=== PATIENT | female | born 1995 | race Caucasian/White ===

== ENCOUNTER 2019-03-28 17:47 | Emergency (ER) | payer MEDICAID, OTHER ==
[~2019-03-28] VITALS: Ht 157.5 cm; Wt 65.8 kg
[~2019-03-28 17:47] MED LIST: ANTIBIOTIC DROPS; CEPH500C PO; FAMO-119 PO; NITR-65 PO; OMEP20CA13 PO; ONDA-42 SL; ONDAN4ODT PO; POLY17PO6 PO; SUCR1ORA5 PO
[2019-03-28 19:03] LABS: BASOPHILS % (AUTO) 1 % (0-10); EOSINOPHILS # (AUTO) 0.1 10^3/uL (0.0-0.3); EOSINOPHILS % (AUTO) 1 % (0-10); HEMATOCRIT 41 % (35-52); LYMPHOCYTES # (AUTO) 2.4 X 10^3 (1.0-4.0); LYMPHOCYTES % (AUTO) 34 % (12-44); MEAN CORPUSCULAR HEMOGLOBIN 32 PG (25-34); MEAN CORPUSCULAR HGB CONC 34 G/DL (32-36); MEAN CORPUSCULAR VOLUME 94 FL (80-99); MEAN PLATELET VOLUME 11.1 FL (7.4-10.4); MONOCYTES # (AUTO) 0.7 X 10^3 (0.0-1.0); MONOCYTES % (AUTO) 10 % (0-12); NEUTROPHILS # (AUTO) 3.8 X 10^3 (1.8-7.8); NEUTROPHILS % (AUTO) 55 % (42-75); PLATELET COUNT 275 10^3/uL (130-400); RED CELL DISTRIBUTION WIDTH 12.4 % (10.0-14.5)
[2019-03-28 19:08] LABS: BILIRUBIN,URINE NEGATIVE (NEGATIVE); CLARITY,URINE CLEAR; COLOR,URINE YELLOW; GLUCOSE, URINE (UA) NEGATIVE (NEGATIVE); KETONES,URINE NEGATIVE (NEGATIVE); LEUKOCYTE ESTERASE ,URINE NEGATIVE (NEGATIVE); NITRITE,URINE NEGATIVE (NEGATIVE); PH,URINE 7.5 (5-9); PROTEIN,URINE NEGATIVE (NEGATIVE)
[2019-03-28 19:25] LABS: BACTERIA,URINE FEW /HPF
[2019-03-28 19:28] LABS: ALANINE AMINOTRANSFERASE 22 U/L (0-55); ALBUMIN 4.3 GM/DL (3.2-4.5); ALKALINE PHOSPHATASE 53 U/L (40-136); BILIRUBIN,TOTAL 0.3 MG/DL (0.1-1.0); BUN/CREATININE RATIO 14; CALCIUM 8.9 MG/DL (8.5-10.1); CARBON DIOXIDE 22 MMOL/L (21-32); CHLORIDE 109 MMOL/L (98-107); CREATININE SERUM 0.73 MG/DL (0.60-1.30); GFR ESTIMATED > 60; GLUCOSE 79 MG/DL (70-105); POTASSIUM 3.9 MMOL/L (3.6-5.0); SODIUM 142 MMOL/L (135-145)
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
[2019-03-28] MEDS ORDERED: ACETAMINOPHEN 325 MG TABLET PO STA (19:50)
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
[2019-03-28 20:05] VITALS: BP 136/72
== END 2019-03-28 20:07 | disposition home or self-care (01) ==
LOC: EDUNIT# 17:47 → ER 17:48
DX: S06.0X1A Concussion with loss of consciousness of 30 minutes or less, initial encounter (principal); S19.9XXA Unspecified injury of neck, initial encounter; S13.9XXA Sprain of joints and ligaments of unspecified parts of neck, initial encounter; Z88.8 Allergy status to other drugs, medicaments and biological substances; V48.6XXA Car passenger injured in noncollision transport accident in traffic accident, initial encounter
CPT/HCPCS: 36415; 70450; 72125; 80053; 81000; 84703; 85025

== ENCOUNTER 2019-10-06 15:48 | Observation (INO) | payer MEDICAID ==
[~2019-10-06] VITALS: Ht 157.2 cm; Wt 70.0 kg
[~2019-10-06 15:48] MED LIST changes: -OMEP20CA13 PO; +OMEP20CA18 PO
--- NOTE | 2019-10-06 15:52 | NUR ---
LAZARO MARCUS presented to unit via AMB from HOME, accompanied by MOTHER, with c/o CONTRACTIONS AT 27 WEEKS. LAZARO MARCUS weighed, gowned, voided, and to bed. EFHM and TOCO applied, VS taken. LAZARO MARCUS oriented to bed controls, call light, TV, heat, and A/C controls.
[2019-10-06 15:58] VITALS: BP 119/75
[2019-10-06] MEDS ORDERED: PREN1TAB79 PO (16:03)
[2019-10-06 16:06] VITALS: BP 119/75
[2019-10-06 16:10] VITALS: BP 119/75
[2019-10-06 16:22] VITALS: BP 119/75
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
[2019-10-06] MEDS ORDERED: LACTATED RINGERS 1,000 ML IV SCH (16:45)
[2019-10-06 16:51] LABS: BILIRUBIN,URINE NEGATIVE (NEGATIVE); CLARITY,URINE SL CLOUDY; COLOR,URINE YELLOW; GLUCOSE, URINE (UA) NEGATIVE (NEGATIVE); KETONES,URINE NEGATIVE (NEGATIVE); LEUKOCYTE ESTERASE ,URINE 1+ (NEGATIVE); NITRITE,URINE NEGATIVE (NEGATIVE); PROTEIN,URINE NEGATIVE (NEGATIVE)
--- NOTE | 2019-10-06 16:51 | NUR ---
AMNIO SWAB NEGATIVE. GENTLE SVE BY AME FERGUSON RN. HIPS ELEVATED ON UPSIDE DOWN BEDPAN. LOWER SEGMENT OF THE UTERUS VERY SOFT. CERVIX IS A DENT EXTERNALLY/ FAIRLY ANTERIOR/ UNABLE TO DETERMINE CERVICAL LENGTH OR PRESENTATION R/T QUICK IN AND OUT BECAUSE OF GESTATIONAL AGE.
[2019-10-06 17:07] LABS: BACTERIA,URINE TRACE /HPF
--- NOTE | 2019-10-06 17:42 | NUR ---
DR. HAWLEY NOTIFIED OF PT'S UA RESULTS AND VARIABLES. ORDERS TO KEEP OVERNIGHT FOR U/S IN THE A.M. ORDERS RECEIVED.
[2019-10-06] MEDS: LACTATED RINGERS 1,000 ML IV SCH (17:56)
[2019-10-06] MEDS ORDERED: ACETAMINOPHEN 500 MG TAB (TYLENOL) PO PRN (18:00)
--- NOTE | 2019-10-06 18:15 | NUR ---
LAB HERE TO DRAW BLOOD FOR CBC. EATING REGULAR DIET. MOM AT BEDSIDE.
[2019-10-06 18:27] LABS: AMPHETAMINE SCREEN, URINE NEGATIVE (NEGATIVE); BARBITURATE SCREEN URINE NEGATIVE (NEGATIVE); BENZODIAZEPINES SCREEN URINE NEGATIVE (NEGATIVE); CANNABINOID SCREEN, URINE NEGATIVE (NEGATIVE); COCAINE SCREEN URINE NEGATIVE (NEGATIVE); METHADONE STAT NEGATIVE (NEGATIVE); METHAMPHETAMINE SCREEN URINE S NEGATIVE (NEGATIVE); OPIATE SCREEN URINE NEGATIVE (NEGATIVE); OXYCODONE STAT NEGATIVE (NEGATIVE); PROPOXYPHENE STAT NEGATIVE (NEGATIVE); TRICYCLIC ANTIDEPRESSANTS SCRE NEGATIVE (NEGATIVE)
[2019-10-06 18:38] LABS: BASOPHILS % (AUTO) 0 % (0-10); EOSINOPHILS # (AUTO) 0.1 10^3/uL (0.0-0.3); EOSINOPHILS % (AUTO) 1 % (0-10); HEMATOCRIT 33 % (35-52); HEMOGLOBIN 11.6 G/DL (11.5-16.0); LYMPHOCYTES # (AUTO) 1.7 X 10^3 (1.0-4.0); LYMPHOCYTES % (AUTO) 19 % (12-44); MEAN CORPUSCULAR HEMOGLOBIN 33 PG (25-34); MEAN CORPUSCULAR HGB CONC 35 G/DL (32-36); MEAN CORPUSCULAR VOLUME 94 FL (80-99); MEAN PLATELET VOLUME 10.8 FL (7.4-10.4); MONOCYTES % (AUTO) 11 % (0-12); NEUTROPHILS # (AUTO) 6.3 X 10^3 (1.8-7.8); NEUTROPHILS % (AUTO) 70 % (42-75); PLATELET COUNT 238 10^3/uL (130-400); RED CELL DISTRIBUTION WIDTH 12.7 % (10.0-14.5)
[2019-10-06 18:44] VITALS: BP 123/72
--- OUTSIDE RECORDS SUMMARY | 2019-10-06 18:54 | XMS REPORT ---
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 Operator Name Role Phone KEYSHAWN CARRION Unavailable Unavailable BRITT CARTER Unavailable Unavailable RIVER KINCAIDA Unavailable Unavailable [facility] Unavailable JUARESREANNA Contreras Unavailable KEYSHAWN CARRION Unavailable Leigh AnnCK Unavailable DANIEL NARANJO Unavailable RIVER KINCAIDA K Unavailable NARANJOKORIN RODRIGUEZBIE JO Unavailable MARCELLA CHIQUI Unavailable MICA AGUILAR Unavailable TIFFANIE MOTT Unavailable MIAH, AME Unavailable AGUEDA BUENROSTRO Unavailable MIAH, AME Unavailable YOGESH MAHAJAN Unavailable YOGESH MAHAJAN Unavailable RIANA RUIZ MD Unavailable Unavailable BRIONNA KINCAID DO Unavailable Unavailable CASA HAGEN Unavailable Unavailable AGUEDA BUENROSTRO Unavailable DANIEL NARANJO Unavailable AGUEDA BUENROSTRO Unavailable Migration, Doctor Unavailable Unavailable Migration, Doctor Unavailable Unavailable Migration, Doctor Unavailable Unavailable Migration, Doctor Unavailable Unavailable RAZ COUGHLIN Unavailable Migration, Doctor Unavailable Unavailable CASA HAGEN Unavailable Unavailable RIANA RUIZ MD Unavailable Unavailable ANTOINE EID, RAINER Davidson Unavailable Unavailable TIFFANIE PAYTON Unavailable Unavailable AGUEDA BUENROSTRO Unavailable Unavailable BRIONNA KINCAID DO Unavailable Unavailable RianaLIBBYOMKAR JAMES Unavailable Unavailable Unavailable RAZ COUGHLIN Unavailable AGUEDA BUENROSTRO Unavailable RAZ COUGHLIN Unavailable Unavailable Unavailable Unavailable Unavailable Unavailable Unavailable Allergies Normalized Allergy Reported Date of Reaction(s) Care Provider Facility Allergy Type classification allergen Allergy Onset DA (17 Unclassified No Known Drug 11-06-2009 - no information CASA Not Available sources.) Allergies AYAAN GARCIA ([id number]) Medications Current Medications Medication Ingredient Drug Dose Dates Status Sig Sig Care Class(es) (Normalized) (Original) Provid er amoxicillin Amoxicillin Penicillin- 02-27-20 Active take 1 Augme ntin no 875 mg / / class 12 tablet by 875-125 mg 1 name clavulanate Clavulanate Antibacteri mouth twice tablet by 125 mg oral Translation al daily Oral route 2 tablet (1 s: [ times per source.) Augmentin day for 10 875-125 mg] day(s) Feb, Active ciprofloxac Ciprofloxac Quinolone 500 mg 07-19-19 Active take 1 Cipro 500 mg no in 500 mg in Antimicrobi 14 tablet by 1 tablet by name oral tablet Translation al mouth every Oral route (1 source.) s: [ Cipro twelve hours every 12 500 mg] hours for 10 day(s) Jul, Active Completed/Discontinued Medications Medication Ingredient Drug Dose Dates Status Sig Sig Care Class(es) (Normalized) (Original) Provid er topiramate topiramate Anti-epilep 25 mg 07-28-19 Suspende no Topiramate no 25 mg oral Translation tic Agent 18 d information 25 MG Orally name tablet (3 s: [ Once a day, sources.) Topiramate at night 1 25 MG, tablet 19 Topiramate Jul, 2017 30 25 MG] day(s) Not-Taking Problems Active Problems Problem Normalized Date Last Normalized Normalized Provider Bryce cility Classification Problem(s) Recorded Problem Problem Sta tus Duration Other nervous Other acute Episodic Active no name no inf ormation system postoperative disorders (3 pain sources.) Other upper Other seasonal Chronic Active YOGESH [facility] respiratory allergic [facility] disease (20 rhinitis of [facility] sources.) Translations: [place] ([id number]) [ - Seasonal allergic rhinitis, unspecified allergic rhinitis trigger J30.2, - Seasonal allergic rhinitis, unspecified trigger J30.2, - Seasonal allergic rhinitis, unspecified allergic rhinitis trigger J30.2, - Seasonal allergic rhinitis, unspecified trigger J30.2] Other female Other Episodic Active no name no informa tion genital specified disorders (3 noninflammator sources.) y disorders of vagina Other injuries Unspecified Episodic Active no name no in formation and conditions injury of due to right ankle, external initial causes (8 encounter sources.) Past or Other Problems Problem Normalized Date Last Normalized Normalized Provider Fa cility Classification Problem(s) Recorded Problem Problem Sta tus Duration External Other external no information no information no name no information Injury - cause status Unspecified (3 sources.) Unclassified Overexertion no information no information no name no information (8 sources.) from strenuous movement or load, initial encounter External Unspecified no information no information no name no information Injury - Fall fall (3 sources.) Nausea and Vomiting, no information no information Doctor C ommunity vomiting (6 unspecified [facility] sources.) Translations: [facility] [ - Vomiting [place] ([id number]) R11.10] Procedures Procedure Normalized Procedure Procedure Result Performer Facility Date 02-15-2018 Assay of thyroid no information no name [facility] stimulating hormone [facility] (86729) 07-27-2017 Assay of thyroid no information no name [facility] stimulating hormone [facility] (77323) 02-15-2018 Blood count complete no information no name [facility] auto&auto difrntl wbc [facility] (88108) 07-27-2017 Blood count complete no information no name [facility] auto&auto difrntl wbc [facility] (86458) 02-15-2018 C-reactive protein no information no name [facility] high sensitivity [facility] (04777) 07-27-2017 Collection venous no information no name [facility] blood venipuncture [facility] (61058) 02-15-2018 Comprehensive no information no name [facility] metabolic panel [facility] (53218) 07-27-2017 Comprehensive no information no name [facility] metabolic panel [facility] (27638) 08-17-2017 Comprehensve oral no information no name Sadau misa [facility] evaluation [facility] (69012) 08-17-2017 Dental prophylaxis no information no name Comm [facility] adult [facility] (66740) 02-15-2018 Ecg routine ecg no information no name Counts include 234 beds at the [facility] w/least 12 lds trcg [facility] w/o i&r [place] (66764) 01-17-2018 Iaadiadoo no information no name [facility] streptococcus group a [facility] (56025) 02-15-2018 Lipid panel no information no name [facility] (80776) 06-26-2014 Radex shoulder no information no name [facility] complete minimum 2 [facility] (01060) 02-15-2018 Radiologic exam chest no information no name [address] ([address]) 08-17-2017 Topical fluoride no information no name [facility] varnish [facility] (16702) 02-15-2018 Urnls dip stick/tablet no information no name [facility] rgnt auto w/o [facility] (67103) Immunizations The data below is from unstructured sourcesNo immunization records.No immunization records.No immunization records. No Known Immunizations No Known Immunizations No Known Immunizations No Known Immunizations No Known Immunizations No Known Immunizations No Known Immunizations No Known Immunizations No Known Immunizations No Known Immunizations No Known Immunizations No Known Immunizations No Known Immunizations No Known Immunizations No Known Immunizations No Known Immunizations No Known Immunizations No Known Immunizations No Known Immunizations No Known Immunizations No Known Immunizations No Known Immunizations No Known Immunizations No Known Immunizations No Known Immunizations No Known Immunizations No Known Immunizations No Known Immunizations No Known Immunizations No Known Immunizations No Known Immunizations No Known Immunizations No Known Immunizations No Known Immunizations No Known Immunizations No Known Immunizations No Known Immunizations No Known Immunizations No Known Immunizations No Known Immunizations No Known Immunizations No Known Immunizations No Known Immunizations No Known Immunizations No Known Immunizations No Known Immunizations No Known Immunizations No Known Immunizations No Known Immunizations No Known Immunizations Results Test Name Value Interpretation Reference Range Date Time Fa cility (Normalized) (Normalized) (Medline Reference) strep a (in house) on null STREP A (IN 417L11 (no code) [facility] (83984) STREP A (IN 09-07-2018 (no code) [facility] (61839) other on null Exp date Positive (no code) [facility] (37063) laboratory on 2019-07-31 Protein (U) Negative (no code) 0 - 20 mg/dL [facility] alth [Mass/Vol] [facility] (87343) laboratory on 2019-07-03 Protein (U) Negative (no code) 0 - 20 mg/dL [facility] alth [Mass/Vol] [facility] (68996) not yet categorized on 2019-06-05 CLINICAL no information (N) [facility] INFORMATION: [facility] (37266) COMMENT no information (no code) [facility] (90554) Control Negative (no code) [facility] (11777) Date of previous no information (N) [facility] biopsy [facility] (13999) Date of previous no information (N) [facility] PAP smear [facility] (36843) Exp date 12/2019 (no code) [facility] (01318) Exp date 04/2020 (no code) [facility] (86087) KET 04/2020~cloudy~ye (no code) [facility] llow~none~negati [facility] ve~negative~nega [facility] tive (24671) Last menstrual no information (N) [facility] period start [facility] (25181) Lot # [id number] (no code) [facility] (03537) Lot # [id number] (no code) [facility] (46597) Lot # [id number] (no code) [facility] (29977) Lot # [id number] (no code) [facility] (36964) SG 1.020 (no code) [facility] (49974) TCA 09/2020~+~Negati (no code) [facility] lt ve~Negative~Nega [facility] tive~Negative~Ne [facility] gative~Negative~ (65959) Negative~Negativ e~Negative~Negat edgar~Negative~Neg ative~Negative URO 1.0 (no code) [facility] (84009) laboratory on 2019-06-05 ABO group Nom B (no code) [facility] (Bld) [facility] (20897) Bacteria SEE NOTE (no code) [facility] identified Aer [facility] cx [facility] (Genital [facility] specimen) (10034) Bacteria SEE NOTE (A) [facility] identified Cx [facility] (U) [facility] (78773) Basophils (Bld) 0.028 10*3/uL (N) 0 - 0.3 10*3/uL [facility] [#/Vol] [facility] (91839) Basophils/100 0.4 % (N) 0.5 - 1 % [facility] WBC (Bld) [facility] (60989) Blood group NO ANTIBODIES (N) [facility] antibody screen DETECTED [facility] (01250) Automatic Dry Starch Operator Cyto no information (N) [facility] th stain Nom [facility] (Cvx/Vag) [ID] [facility] (84124) Cytology study no information (N) [facility] comment Cyto [facility] (Cvx/Vag) (57129) [Interp] Eosinophils 0.077 10*3/uL (N) 0.05 - 0.5 [facility] alth (Bld) [#/Vol] 10*3/uL [facility] (78248) Eosinophils/100 1.1 % (N) 1 - 4 % [facility] WBC (Bld) [facility] (25465) Erythrocyte 12.4 % (N) 11.6 - 14.6 % Community ealth distribution [facility] width (RBC) [facility] [Ratio] (43947) General no information (A) [facility] categories Cy[facility] stain (Cvx/Vag) [facility] [Interp] (89775) Hematocrit (Bld) 40.3 % (N) 36.1 - 50.3 % [facility] [Volume [facility] fraction] [facility] (36610) Hemoglobin (Bld) 13.7 g/dL (N) 12.1 - 17.2 g/dL [facility] Health [Mass/Vol] [facility] (79194) Lymphocytes 1.659 10*3/uL (N) 0.9 - 2.9 Community He alth (Bld) [#/Vol] 10*3/uL [facility] (95626) Lymphocytes/100 23.7 % (N) 20 - 40 % [facility] WBC (Bld) [facility] (20473) MCH (RBC) 32.1 pg (N) 27 - 31 pg [facility] Heal th [Entitic mass] [facility] (38608) MCHC (RBC) 34.0 g/dL (N) 32 - 36 g/dL Community [facility]th [Mass/Vol] [facility] (67856) MCV (RBC) 94.4 fL (N) 80 - 100 fL [facility] Hea lth [Entitic vol] [facility] (22548) Microorganism no information (N) [facility] identified Cyto [facility] stain Nom [facility] (Cvx/Vag) (52966) Microscopic no information (A) [facility] observation Cyto [facility] stain Nom (Cvx) [facility] (73422) Monocytes (Bld) 0.763 10*3/uL (N) 0.3 - 0.9 [facility] [#/Vol] 10*3/uL [facility] (08591) Monocytes/100 10.9 % (N) 2 - 8 % Community alth WBC (Bld) [facility] (45743) Neutrophils 4.473 10*3/uL (N) 1.7 - 7 10*3/uL Counts include 234 beds at the [facility] (Bld) [#/Vol] [facility] (42562) Neutrophils/100 63.9 % (N) 40 - 60 % [facility] WBC (Bld) [facility] (22062) Pathologist Cyto no information (N) [facility] lth stain Nom [facility] (Cvx/Vag) [ID] [facility] (59925) pH (Bld) 7.5 [pH] (no code) 7.38 - 7.42 [pH] [facility] (84134) Platelet mean 11.6 fL (N) 7.2 - 11.7 fL [facility] Health volume (Bld) [facility] [Entitic vol] [facility] (32269) Platelets (Bld) 258 10*3/uL (N) 150 - 450 [facility] [#/Vol] 10*3/uL [facility] (90971) Protein (U) Negative (no code) 0 - 20 mg/dL [facility] He alth [Mass/Vol] [facility] (11118) RBC (Bld) 4.27 10*6/uL (N) 4.2 - 6.1 [facility] lth [#/Vol] 10*6/uL [facility] (52161) Rh Nom (Bld) Negative (no code) [facility] (30007) Rubella virus 4.06 (N) [facility] IgG Qn (S) [facility] (87954) Specimen source Cervix (N) [facility] Cyto stain Nom [facility] (Cvx/Vag) [facility] (30665) Statement of no information (N) [facility] adequacy Cyto [facility] stain (Cvx/Vag) [facility] [Interp] (71824) TSH Qn 0.06 m[IU]/L (L) 0.4 - 4 m[IU]/L [facility] (46085) WBC (Bld) 7.0 10*3/uL (N) 3.5 - 10.5 [facility] [#/Vol] 10*3/uL [facility] (08096) not yet categorized on 2019-05-02 Exp date +~12/2020 (no code) [facility] (36151) Lot # [id number] (no code) [facility] (05051) RESULTS Positive (no code) [facility] (09713) cardiac on 2018-02-15 CRP High 0.4 mg/L (N) 0 - 2 mg/L [facility] [Mass/Vol] (79891) urinalysis on 2017-06-19 Protein mass Negative (no code) 0 - 20 mg/dL no informat ion conc (U) other on 2017-06-19 BLO Negative (no code) no information Exp date +~2018-09-07 (no code) [facility] (97055) KET 2018-02-07~clear (no code) no informatio n ~yellow~none~neg ative~negative~n egative Lot # [id number] (no code) no information Lot # [id number] (no code) [facility] (22330) SG 1.025 (no code) no information URO 1.0 (no code) no information hematology on 2017-06-19 pH (Bld) 6.5 [pH] (no code) 7.38 - 7.42 [pH] no infor mation Vital Signs Vital Sign Value Interpretation Reference Date Time Care Prov ider Facility (Normalized) (Normalized) Range BMI (Body Mass 31.05 kg/m2 (no code) 15 - 25 kg/m2 02-15-2018 W MARYLOU BUENROSTRO Community Index) 15:40-[address] [place] [address] (81649) BMI (Body Mass 30.78 kg/m2 (no code) 15 - 25 kg/m2 01-17-2018 NICK ANTONIO Community Index) 20:20-[address] [place] [address] (37890) BMI (Body Mass 30.54 kg/m2 (no code) 15 - 25 kg/m2 11-08-2017 Marielena BUENROSTRO Community Index) 09:00-[address] [place] [address] (64564) BMI (Body Mass 30.85 kg/m2 (no code) 15 - 25 kg/m2 07-27-2017 Marielena BUENROSTRO Community Index) 16:00-0400 [address] [facility] (64307) Body 98.4 [degF] (no code) 97.8 - 99.0 02-15-2018 AGUEDA CHRISTIANSEN Community Temperature [degF] 15:40-[address] [place] [address] ([id number]) Body 98.4 [degF] (no code) 97.8 - 99.0 01-17-2018 [facility] Temperature [degF] 20:20-[address] (48741) Body 98 [degF] (no code) 97.8 - 99.0 11-08-2017 AGUEDA [facility] Temperature [degF] 09:00-[address] [place] [address] ([id number]) Body 98.4 [degF] (no code) 97.8 - 99.0 07-27-2017 AGUEDA CHRISTIANSEN Community Temperature [degF] 16:00-[address] [place] [address] (51085) Body 97.9 [degF] (no code) 97.8 - 99.0 06-26-2014 RAZ [facility] Temperature [degF] 15:17-[address] [place] [address] (85665) Body 98.2 [degF] (no code) 97.8 - 99.0 04-28-2014 Doctor Community Temperature [degF] 17:36-0500 [facility] (17997) Body weight 71.71 kg (no code) kg 06-26-2014 RAZ Com munity 15:17-[address] [place] [address] (95111) Body weight 72.08 kg (no code) kg 04-28-2014 Doctor Com munity 17:36-0500 [facility] (86003) Height 152.4 cm (no code) cm 02-15-2018 AGUEDA BUENROSTRO Mt mmunity 15:40-[address] [place] [address] (47109) Height 152.4 cm (no code) cm 01-17-2018 CHIQUI Commu nity 20:20-[address] (64988) Height 152.4 cm (no code) cm 11-08-2017 AGUEDA BUENROSTRO Mt mmunity 09:00-[address] [place] [address] (44226) Height 152.4 cm (no code) cm 07-27-2017 AGUEDA BUENROSTRO Mt mmunity 16:00-[address] [place] [address] ([id number]) Height 152.4 cm (no code) cm 06-26-2014 RAZ Commun ity 15:17-[address] [place] [address] (46150) Height 152.4 cm (no code) cm 04-28-2014 Doctor Commun ity 17:36-0500 [facility] (30804) Pulse Oximetry 99 % (no code) 95 - 100 % 02-15-2018 [facility] 15:40-[address] [place] [address] (69938) Pulse Oximetry 99 % (no code) 95 - 100 % 11-08-2017 [facility] 09:00-[address] [place] [address] ([id number]) Weight 72.12 kg (no code) kg 02-15-2018 [facility]ED[facility]ER[facility]STRO [facility] 15:40-[address] [place] [address] (85420) Weight 71.49 kg (no code) kg 01-17-2018 CHIQUI Commu nity 20:20-[address] (18534) Weight 70.94 kg (no code) kg 11-08-2017 AGUEDA BUENROSTRO Mt mmunity 09:000400 [address] [place] [address] (60886) Weight 71.67 kg (no code) kg 07-27-2017 AGUEDA BUENROSTRO Mt mmunity 16:000400 [address] [place] [address] (96654) Interventions No Information Plan of Treatment Normalized Care Care Detail Care Activity Date Care Provider F acility Activity no information no information no [address] ([address]) Goals No Information Social History No Information Functional Status The data below is from unstructured sourcesNo functional status results.No functional status results.No functional status results.No functional status information available.No functional status information available.No functional status information available.No functional status inf ormation available. Mental Status No Information Encounters Encounter Normalized Encounter Encounter Diagnosis Care Provi jennie Organization Date Type 03-28-2019 Emergency department no information no name no organization name - patient visit 03-28-2019 04-14-2015 Emergency department no information no name no organization name - patient visit 04-14-2015 07-03-2013 Emergency department no information no name no organization name - patient visit 07-03-2013 05-02-2012 Emergency department no information no name no organization name - patient visit 05-03-2012 11-08-2017 Patient encounter no information no name no or ganization name 09-30-2017 Patient encounter no information no name no or ganization name 08-17-2017 Patient encounter no information no name no or ganization name 08-09-2017 Patient encounter no information no name no or ganization name 07-27-2017 Patient encounter no information no name no or ganization name 07-06-2017 Patient encounter no information no name no or ganization name 07-06-2017 Patient encounter no information no name no or ganization name 06-19-2017 Patient encounter no information no name no or ganization name 06-15-2017 Patient encounter no information no name no or ganization name 04-20-2015 Patient encounter no information no name no or ganization name 06-26-2014 Patient encounter no information no name no or ganization name 08-28-2019 Patient encounter no information AGUEDA BUENROSTRO (no [facility] phone) (no phone) [facility] (no phone) 07-31-2019 Patient encounter no information AGUEDA BUENROSTRO (no [facility] procedure phone) (no phone) [facility] (no phone) 07-03-2019 Patient encounter no information AGUEDA BUENROSTRO (no [facility] procedure phone) (no phone) [facility] (no phone) 06-15-2019 Patient encounter no information AGUEDA BUENROSTRO (no [facility] procedure phone) [facility] (no phone) 06-11-2019 Patient encounter no information AGUEDA BUENROSTRO (no [facility] procedure phone) (no phone) [facility] [place] (no phone) 06-05-2019 Patient encounter no information AGUEDA BUENROSTRO (no [facility] procedure phone) (no phone) (no [facility] phone) [place] (no phone) 05-02-2019 Patient encounter no information no name no or ganization name procedure 04-04-2019 Patient encounter no information no name no or ganization name procedure 08-22-2018 Patient encounter no information no name no or ganization name procedure 04-23-2018 Patient encounter no information no name no or ganization name procedure 04-21-2018 Patient encounter no information no name no or ganization name procedure 04-20-2018 Patient encounter no information no name no or ganization name procedure 03-26-2018 Patient encounter no information no name no or ganization name procedure 02-15-2018 Patient encounter no information no name no or ganization name procedure 04-20-2015 Patient encounter no information no name no or ganization name procedure no information Encounter for dental no name no organi zation name examination and cleaning without abnormal findings Medical Equipment No Information Payers No Information Summary Purpose eClinicalWorks SubmissioneClinicalWorks SubmissioneClinicalWorks SubmissioneClinicalWorks Submission Advance Directives Directive Response Recor ded Date/Time Advance Directives No 8:32pm Health Care Power of Weapons Officer No 07/03/13 4:04pm Resuscitation Status Full Code 04/11/15 8:32pm Directive Response Recor ded Date/Time Advance Directives No 10:57am Health Care Power of Weapons Officer No 04/14/15 10:57am Resuscitation Status Full Code 04/14/15 10:57am Directive Response Recor ded Date/Time Advance Directives No 7:10am Health Care Power of Weapons Officer No 09/30/17 7:10am Resuscitation Status Full Code 09/30/17 7:10am Discharge Instructions No hospital discharge instructions.No hospital discharge instructions.No hospital discharge instruction information available.No hospital discharge instruction information available. Additional Source Comments This clinical document has been generated using [employer] software that has been certified by the Office of the National Coordinator for Health Information Technology (ONC 15.99.04.3023.Diam.31.00.0.481361) and the National Committee for Department Director (NCQA, as an eMeasure certified technology). FOR RECORDS PERTAINING TO PATIENTS WHO ARE OR HAVE BEEN ENROLLED IN A CHEMICAL D EPENDENCY/SUBSTANCE ABUSE PROGRAM, SOME INFORMATION MAY BE OMITTED. This clinica l summary was aggregated from multiple sources. Caution should be exercised in using it in the provision of clinical care. This summary normalizes information from multiple sources, and as a consequence, information in this document may ma terially change the coding, format and clinical context of patient data. In lamont tion, data may be omitted in some cases. CLINICAL DECISIONS SHOULD BE BASED ON T HE PRIMARY CLINICAL RECORDS. [employer] provides no warranty or guara ntee of the accuracy or completeness of information in this document.The followi information is based on time limited clinical information UNRECOGNIZED CONTENT PROVIDED BELOW FOR UNRECOGNIZED SECTION REASON FOR VISIT ReferralPhysical- H & P. PT [facility] was seen on 01/13/2018 for cold symptoms and was given prednisone. Pt states she completed the regimen of prednisone this morning and has felt some relief. Pt states nausea has continued since 01/13. bhennennremthigh pulse/chest discomfort, PT reports she has been dealing with chest pains on/off, and notes it to be racing fast when she is trying to sleep along with headaches. -Junito PRINCEINFOQ-[id number]-HaaHBM-Janel-Zaki UNRECOGNIZED CONTENT PROVIDED BELOW FOR UNRECOGNIZED SECTION MEDICAL (GENERAL) HISTORY Type Description Date Surgical History No know Surgical history Type Description Date Surgical History No Surgical history information
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
--- OUTSIDE RECORDS SUMMARY | 2019-10-06 18:55 | XMS REPORT ---
Author Author Britt COUGHLIN [facility] Address [address] [place] [address] Care Team Providers Care Continuous Improvement Facilitator Name Role Phone RAZ COUGHLIN Unavailable PROBLEMS Type Condition ICD9-CM Code FCL88-DB Code Onset Dates Condition S tatus SNOMED Code Problem Mentally challenged F79 Active 56054278 Problem Constipation K59.00 Active 7243857 8 Problem UTI (urinary tract infection) N39.0 Active 06386858 Problem Seasonal allergic rhinitis due to other allergic trigger J30.89 Active 356086305 Problem Chronic fatigue R53.82 Active 8422 9001 Problem Tension headache G44.209 Active 398 526675 Problem Seasonal allergic rhinitis, unspecified allergic rhinitis trigger J30.2 Active 921039804 Problem Acute non intractable tension-type headache G44.20 9 Active 581096774 Problem Seasonal allergic rhinitis due to pollen J30.1 Active 59234637 ALLERGIES No Information ENCOUNTERS Encounter Location Date Diagnosis [facility] [id number] [place] [phone] 15 Aug, 2018 Sore throat J02.9 and Strep pharyngitis J02.0 [facility] [place] [id number] [place] [id number] 14 Apr, 2018 Vomiting R11.10 [facility] [address] [id number] [address] [place] [phone] 12 Apr, 2018 Sore throat J02.9 and Strep pharyngitis J02.0 [facility] [id number] [place] [phone] Apr, [facility] [id number] [place] [phone] Mar, Acute nasopharyngitis J00 [facility] [place] [address] [facility] [id number] [address] [place] [phone] Feb, Tachycardia R00.0 ; Chest pa in at rest R07.9 and Chronic fatigue R53.82 [place] [id number] [address] [id number] [place] [phone] Jan, Cough R05 [facility] [place] [address] [facility] [id number] [place] [phone] Jan, Strep pharyngitis J02.0 and Sore throat J02.9 [facility] [place] [address] [facility] [id number] [place] [phone] Jan, Seasonal allergic rhinitis d ue to other allergic trigger J30.89 [place] [id number] [place] [phone] Nov, Dental caries K02.9 [facility] [address] [id number] Sep, [facility] [address] [id number] Sep, [facility] [address] [id number] August, Encounter for dental examina tion Z01.20 [facility] [place] [address] [address] August, Seasonal allergic rhinitis, unspecified trigger J30.2 [place] [address] [phone] Jul, Frequent headaches R51 and F amily history of diabetes mellitus Z83.3 [facility] [place] [id number] [place] [phone] Jul, Dysfunction of left eustachi an tube H69.82 [facility] [id number] [place] [id number] Jun, Encounter for dental examina tion Z01.20 [facility] [place] [address] [address] Jun, Left ear pain H92.02 and [place] in[place] allergic rhinitis due to pollen J30.1 [facility] [address] [place] [phone] Jun, Increased nausea and vomitin g R11.2 [facility] [address] [place] [phone] Jun, Viral gastroenteritis A08.4 [facility] [address] [place] [phone] Apr, Fever R50.9 and Strep pharyn gitis J02.0 [facility] [address] [place] [address] Jan, Allergic contact dermatitis, unspecified trigger L23.9 [facility] [address] [place] [address] Dec, Acute left ankle pain M25.57 2 [facility] [address] [place] [phone] Nov, Seasonal allergic rhinitis, unspecified allergic rhinitis trigger J30.2 [facility] [address] [place] [address] Sep, Acute non intractable tensio n-type headache G44.209 [facility] [address] [place] [phone] Sep, Gastroenteritis and colitis, viral A08.4 [facility] [address] [place] [phone] Jul, Seasonal allergic rhinitis, unspecified allergic rhinitis trigger J30.2 and Acute middle ear effusion, bilateral H65.193 [facility] [address] [place] [address] Jun, Acute suppurative otitis med ia of right ear without spontaneous rupture of tympanic membrane, recurrence not specified H66.001 [place] [id number] [place] [phone] 14 May, 2016 Mentally challenged F79 and Poor dentition K08.9 [place] [id number] [place] [phone] 30 Apr, 2016 Ankle strain, right, subsequ ent encounter S96.911D ; Tension headache G44.209 ; Wellness examination Z00.00 and Poor dentition K08.9 [facility] [id number] [place] [phone] Apr, Sprain of right knee, unspec ified ligament, initial encounter S83.91XA ; Sprain of right ankle, unspecified ligament, initial encounter S93.401A and Contusion of right elbow, initial encounter S50.01XA [facility] [address] [id number] Apr, Headache above the eye regio n R51 [facility] [place] [id number] [place] [phone] 04 Jul, 2015 Gastroenteritis K52.9 [place] [address] [address] Apr, [place] [address] [address] Apr, UTI (urinary tract infection ) N39.0 and Constipation K59.00 [place] [id number] [place] [phone] Apr, Epigastric pain R10.13 and E pigastric abdominal pain R10.13 [place] [address] [address] Feb, Sore throat J02.9 [place] [id number] [place] [phone] Sep, [facility] [address] [id number] [address] [place] [address], [place] [address] Sep, Tick bite 919.4 [facility] [address] [id number] [address] [place] [address], [place] [address] 14 Jul, 2014 [facility] [address] [id number] [address] [place] [address], [place] [address] Jul, [facility] [address] [id number] [address] [place] [address], [place] [address] Jun, [facility] [address] [id number] [address] [place] [address], [place] [address] Jun, [facility] [address] [id number] [address] [place] [address], [place] [address] Apr, [facility] [address] [id number] [address] [place] [address], [place] [address] Apr, [facility] [address] [id number] [address] [place] [address], [place] [address] Mar, [facility] [address] [id number] [address] [place] [address], [place] [id number] Mar, [facility] [address] [id number] [address] [place] [address], [place] [address] Jul, [facility] [address] [id number] [address] [place] [address], [place] [address] Jul, [facility] [address] [id number] [address] [place] [address], [place] [address] Jul, [facility] [address] [id number] [address] [place] [address], [place] [address] Jul, [facility] [address] [id number] [address] [place] [address], [place] [address] Jul, [facility] [address] [id number] [address] [place] [address], [place] [address] 06 Mar, 2013 [facility] [address] [id number] [address] [place] [phone] Mar, [facility] [address] [id number] [address] [place] [address], [place] [address] August, [facility] [address] [id number] [address] [place] [address], [place] [address] August, [facility] [address] [id number] [address] [place] [address], [place] [address] May, [facility] [address] [id number] [address] [place] [address], [place] [address] Apr, [facility] [address] [id number] [address] [place] [address], [place] [address] Feb, [facility] [address] [id number] [address] [place] [address], [place] [address] Feb, [facility] [address] [id number] [address] [place] [address], [place] [address] Jan, [facility] [address] [id number] [address] [place] [address], [place] [address] Jan, [facility] [address] [id number] [address] [place] [address], [place] [address] Dec, [facility] [address] [id number] [address] [place] [address], [place] [address] Dec, [facility] [address] [id number] [address] [place] [address], [place] [address] Nov, [facility] [address] [id number] [address] [place] [address], [place] [address] Nov, [facility] [address] [id number] [address] [place] [address], [place] [address] Oct, [facility] [address] [id number] [address] [place] [address], [place] [address] May, [facility] [address] [id number] [address] [place] [address], [place] [address] May, [facility] [place] [address] [id number] [address] [place] [id number] 04 May, 2011 [facility] [place] [address] [id number] [address] [place] [phone] Feb, [facility] [place] [address] [id number] [address] [place] [phone] Jun, [facility] [place] [address] [id number] [address] [place] [phone] Feb, [facility] [place] [address] [id number] [address] [place] [phone] Jan, [facility] [place] [address] [id number] [address] [place] [phone] August, [facility] [place] [address] [facility] [id number] [address] [place] [phone] Jul, IMMUNIZATIONS No Known Immunizations SOCIAL HISTORY Never Assessed REASON FOR VISIT PLAN OF CARE VITAL SIGNS Height 60 in 2014-06-26 Weight 158.1 lbs 2014-06-26 Temperature 97.9 degrees Fahrenheit 2014-06-26 Heart Rate 84 bpm 2014-06-26 Respiratory Rate 18 2014-06-26 Blood pressure systolic 128 mmHg 2014-06-26 Blood pressure diastolic 80 mmHg 2014-06-26 MEDICATIONS No Known Medications RESULTS No Results PROCEDURES Procedure Date Ordered Result Body Site X-RAY EXAM OF SHOULDER June 26, 2014 INSTRUCTIONS MEDICATIONS ADMINISTERED No Known Medications MEDICAL (GENERAL) HISTORY Type Description Date Surgical History No Surgical history information
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
--- OUTSIDE RECORDS SUMMARY | 2019-10-06 18:55 | XMS REPORT ---
Author Author Britt COUGHLIN [facility] Address [address] [place] [address] Care Team Providers Care Barrel Charrer Helper Name Role Phone RAZ COUGHLIN Unavailable PROBLEMS Type Condition ICD9-CM Code [id number] Code Onset Dates Condition S tatus SNOMED Code Problem Mentally challenged F79 Active 81484740 Problem Constipation K59.00 Active 8319933 8 Problem UTI (urinary tract infection) N39.0 Active 17179044 Problem Seasonal allergic rhinitis due to other allergic trigger J30.89 Active 099158572 Problem Chronic fatigue R53.82 Active 8422 9001 Problem Tension headache G44.209 Active 398 117583 Problem Seasonal allergic rhinitis, unspecified allergic rhinitis trigger J30.2 Active 647507439 Problem Acute non intractable tension-type headache G44.20 9 Active 512874100 Problem Seasonal allergic rhinitis due to pollen J30.1 Active 62817882 ALLERGIES No Information ENCOUNTERS Encounter Location Date Diagnosis [facility] [id number] [place] [address] 15 Aug, 2018 Sore throat J02.9 and Strep pharyngitis J02.0 [facility] [address] [id number] [address] [place] [address] 14 Apr, 2018 Vomiting R11.10 [facility] [address] [id number] [address] [place] [address] 12 Apr, 2018 Sore throat J02.9 and Strep pharyngitis J02.0 [facility] [id number] [place] [address] Apr, [facility] [address] [id number] [address] [place] [address] Mar, Acute nasopharyngitis J00 [facility] [address] [facility] [id number] [address] [place] [address] Feb, Tachycardia R00.0 ; Chest pa in at rest R07.9 and Chronic fatigue R53.82 [place] [address] [place] [id number] [place] [address] Jan, Cough R05 [facility] [place] [address] [address] [facility] [id number] [place] [address] Jan, Strep pharyngitis J02.0 and Sore throat J02.9 [facility] [place] [address] [address] [facility] [id number] [place] [address] Jan, Seasonal allergic rhinitis d ue to other allergic trigger J30.89 [place] [address] [place] [id number] [place] [address] Nov, Dental caries K02.9 [facility] [address] [id number] Sep, [facility] [address] [id number] Sep, [facility] [address] [id number] August, Encounter for dental examina tion Z01.20 [facility] [place] [address] [address] August, Seasonal allergic rhinitis, unspecified trigger J30.2 [place] [address] [address] Jul, Frequent headaches R51 and F amily history of diabetes mellitus Z83.3 [facility] [place] [address] [place] [id number] [place] [address] Jul, Dysfunction of left eustachi an tube H69.82 [facility] [id number] [place] [id number] Jun, Encounter for dental examina tion Z01.20 [facility] [address] [address] Jun, Left ear pain H92.02 and Sea in[place] allergic rhinitis due to pollen J30.1 [facility] [address] [place] [address] Jun, Increased nausea and vomitin g R11.2 [facility] [address] [place] [address] Jun, Viral gastroenteritis A08.4 [facility] [address] [place] [address] Apr, Fever R50.9 and Strep pharyn gitis J02.0 [facility] [address] [place] [address] Jan, Allergic contact dermatitis, unspecified trigger L23.9 [facility] [address] [place] [address] Dec, Acute left ankle pain M25.57 2 [facility] [address] [place] [address] Nov, Seasonal allergic rhinitis, unspecified allergic rhinitis trigger J30.2 [facility] [address] [place] [address] Sep, Acute non intractable tensio n-type headache G44.209 [facility] [address] [place] [address] Sep, Gastroenteritis and colitis, viral A08.4 [facility] [address] [place] [address] Jul, Seasonal allergic rhinitis, unspecified allergic rhinitis trigger J30.2 and Acute middle ear effusion, bilateral H65.193 [facility] [address] [place] [address] Jun, Acute suppurative otitis med ia of right ear without spontaneous rupture of tympanic membrane, recurrence not specified H66.001 [place] [address] [place] [address] 14 May, 2016 Mentally challenged F79 and Poor dentition K08.9 [place] [address] [place] [id number] [address] [place] [address] 30 Apr, 2016 Ankle strain, right, subsequ ent encounter S96.911D ; Tension headache G44.209 ; Wellness examination Z00.00 and Poor dentition K08.9 [facility] [id number] [place] [address] Apr, Sprain of right knee, unspec ified ligament, initial encounter S83.91XA ; Sprain of right ankle, unspecified ligament, initial encounter S93.401A and Contusion of right elbow, initial encounter S50.01XA [facility] [address] [address] Apr, Headache above the eye regio n R51 [facility] [place] [id number] [place] [address] 04 Jul, 2015 Gastroenteritis K52.9 [place] [address] [address] Apr, [place] [address] [address] Apr, UTI (urinary tract infection ) N39.0 and Constipation K59.00 [place] [address] [id number] [place] [address] Apr, Epigastric pain R10.13 and E pigastric abdominal pain R10.13 [place] [address] [address] Feb, Sore throat J02.9 [place] [address] [place] [id number] [address] [place] [address] Sep, [facility] [address] [id number] [address] [place] [address], [place] [address] Sep, Tick bite 919.4 [facility] [address] [id number] [address] [place] [address], [place] [address] 14 Jul, 2014 [facility] [address] [id number] [address] [place] [address], [place] [address] Jul, [facility] [address] [id number] [address] [place] [address], [place] [address] Jun, [facility] [address] [id number] [address] [place] [address], [place] [address] Jun, [facility] [address] [id number] [address] [place] [address], [place] [address] Apr, [facility] [address] [id number] [address] [place] [address], [place] [address] Apr, [facility] [address] [id number] [address] [place] [address], [place] [address] Mar, [facility] [address] [id number] [address] [place] [address], [place] [address] Mar, [facility] [address] [id number] [address] [place] [address], [place] [address] Jul, [facility] [address] [id number] [address] [place] [address], [place] [address] Jul, [facility] [address] [id number] [address] [place] [address], [place] [address] Jul, [facility] [address] [id number] [address] [place] [address], [place] [address] Jul, [facility] [address] [id number] [address] [place] [address], [place] [address] Jul, [facility] [address] [id number] [address] [place] [address], [place] [address] 06 Mar, 2013 [facility] [address] [id number] [address] [place] [address] Mar, [facility] [address] [id number] [address] [place] [address], [place] [address] August, [facility] [address] [id number] [address] [place] [address], [place] [address] August, [facility] [address] [id number] [address] [place] [address], [place] [address] May, [facility] [address] [id number] [address] [place] [address], [place] [address] Apr, [facility] [address] [id number] [address] [place] [address], [place] [address] Feb, [facility] [address] [id number] [address] [place] [address], [place] [address] Feb, [facility] [address] [id number] [address] [place] [address], [place] [address] Jan, [facility] [address] [id number] [address] [place] [address], [place] [address] Jan, [facility] [address] [id number] [address] [place] [address], [place] [address] Dec, [facility] [address] [id number] [address] [place] [address], [place] [address] Dec, [facility] [address] [id number] [address] [place] [address], [place] [address] Nov, [facility] [address] [id number] [address] [place] [address], [place] [address] Nov, [facility] [address] [id number] [address] [place] [address], [place] [address] Oct, [facility] [address] [id number] [address] [place] [address], [place] [address] May, [facility] [address] [id number] [address] [place] [address], [place] [address] May, [facility] [address] [id number] [address] [place] [address] 04 May, 2011 [facility] [address] [id number] [address] [place] [address] Feb, [facility] [address] [id number] [address] [place] [address] Jun, [facility] [address] [facility] [id number] [address] [place] [address] Feb, [facility] [address] [id number] [address] [place] [address] Jan, [facility] [address] [facility] [id number] [address] [place] [address] August, [facility] [address] [facility] [id number] [address] [place] [address] Jul, IMMUNIZATIONS No Known Immunizations SOCIAL HISTORY Never Assessed REASON FOR VISIT PLAN OF CARE VITAL SIGNS Weight 158.4 lbs 2014-03-17 Temperature 97.8 degrees Fahrenheit 2014-03-17 Heart Rate 78 bpm 2014-03-17 Respiratory Rate 18 2014-03-17 Blood pressure systolic 118 mmHg 2014-03-17 Blood pressure diastolic 78 mmHg 2014-03-17 MEDICATIONS No Known Medications RESULTS No Results PROCEDURES Procedure Date Ordered Result Body Site STREP A ASSAY W/OPTIC Mar 17, 2014 INSTRUCTIONS MEDICATIONS ADMINISTERED No Known Medications MEDICAL (GENERAL) HISTORY Type Description Date Surgical History No Surgical history information
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
--- OUTSIDE RECORDS SUMMARY | 2019-10-06 18:55 | XMS REPORT ---
Author Author Britt Bhandari Doctor Organization [facility] Address Unknown Phone Unavailable Care Team Providers Care Project Coordinator Rn Name Role Phone Migration, Doctor Unavailable Unavailable PROBLEMS Type Condition ICD9-CM Code TLU10-MA Code Onset Dates Condition S tatus SNOMED Code Problem Mentally challenged F79 Active 39002575 Problem Constipation K59.00 Active 6988117 8 Problem UTI (urinary tract infection) N39.0 Active 12602642 Problem Seasonal allergic rhinitis due to other allergic trigger J30.89 Active 612992083 Problem Chronic fatigue R53.82 Active 8422 9001 Problem Tension headache G44.209 Active 398 363258 Problem Seasonal allergic rhinitis, unspecified allergic rhinitis trigger J30.2 Active 662196083 Problem Acute non intractable tension-type headache G44.20 9 Active 844658412 Problem Seasonal allergic rhinitis due to pollen J30.1 Active 63164964 ALLERGIES No Information ENCOUNTERS Encounter Location Date Diagnosis [facility] [id number] [place] [id number] 15 Aug, 2018 Sore throat J02.9 and Strep pharyngitis J02.0 [facility] [address] [place] [id number] [address] [place] [address] 14 Apr, [address] [facility] [address] [id number] [address] [place] [phone] 12 Apr, 2018 Sore throat J02.9 and [address]rep pharyngitis J02.[address] [facility] [address] [facility] [id number] [address] [place] [id number] 11 Apr, [address] [facility] [address] [id number] [address] [place] [id number] 17 Mar, 2018 Acute nasopharyngitis J00 [facility] [address] [id number] [address] [place] [phone] Feb, Tachycardia R00.0 ; Chest pa in at rest R07.9 and Chronic fatigue R53.82 [facility] [address] [facility] [id number] [address] [place] [phone] Jan, Cough R05 [facility] [address] [facility] [id number] [address] [place] [address] Jan, Strep pharyngitis J02.0 and Sore throat J02.9 [facility] [address] [id number] [address] [place] [address] Jan, Seasonal allergic rhinitis d ue to other allergic trigger J30.89 [facility] [address] [facility] [id number] [place] [address] Nov, Dental caries K02.9 [facility] [address] [place] [id number] Sep, [facility] [address] [place] [id number] Sep, [facility] [address] [id number] August, Encounter for dental examina tion Z01.20 [facility] [address] [facility] [id number] [place] [id number] August, Seasonal allergic rhinitis, unspecified trigger J30.2 [facility] [address] [facility] [id number] [address] [place] [phone] Jul, Frequent headaches R51 and F amily history of diabetes mellitus Z83.3 [facility] [address] [facility] [id number] [address] [place] [address] Jul, Dysfunction of left eustachi an tube H69.82 [facility] [address] [id number] [address] [place] [id number] Jun, Encounter for dental examina tion Z01.20 [facility] [address] [facility] [id number] [address] [place] [address] Jun, Left ear pain H92.02 and [place] in[place] allergic rhinitis due to pollen J30.1 [facility] [address] [place] [address] Jun, Increased nausea and vomitin g R11.2 [facility] [address] [place] [address] Jun, Viral gastroenteritis A08.4 [facility] [address] [place] [address] Apr, Fever R50.9 and Strep pharyn gitis J02.0 [facility] [address] [place] [address] Jan, Allergic contact dermatitis, unspecified trigger L23.9 [facility] [address] [place] [address] Dec, Acute left ankle pain M25.57 2 [facility] [address] [place] [phone] Nov, Seasonal allergic rhinitis, unspecified allergic rhinitis trigger J30.2 [facility] [address] [place] [address] Sep, Acute non intractable tensio n-type headache G44.209 [facility] [address] [place] [address] Sep, Gastroenteritis and colitis, viral A08.4 [facility] [address] [place] [address] Jul, Seasonal allergic rhinitis, unspecified allergic rhinitis trigger J30.2 and Acute middle ear effusion, bilateral H65.193 [facility] [address] [place] [address] Jun, Acute suppurative otitis med ia of right ear without spontaneous rupture of tympanic membrane, recurrence not specified H66.001 [facility] [address] [place] [id number] [place] [address] 14 May, 2016 Mentally challenged F79 and Poor dentition K08.9 [place] [address] [place] [id number] [place] [address] 30 Apr, 2016 Ankle strain, right, subsequ ent encounter S96.911D ; Tension headache G44.209 ; Wellness examination Z00.00 and Poor dentition K08.9 [facility] [address] [address] Apr, Sprain of right knee, unspec ified ligament, initial encounter S83.91XA ; Sprain of right ankle, unspecified ligament, initial encounter S93.401A and Contusion of right elbow, initial encounter S50.01XA [facility] [place] [address] [address] Apr, Headache above the eye regio n R51 [facility] [place] [address] [place] [id number] [place] [address] Jul, Gastroenteritis K52.9 [place] [address] [address] Apr, [place] [address] [address] Apr, UTI (urinary tract infection ) N39.0 and Constipation K59.00 [place] [address] [place] [id number] [address] [place] [address] Apr, Epigastric pain R10.13 and E pigastric abdominal pain R10.13 [place] [address] [place] [id number] [address] [place] [address] Feb, Sore throat J02.9 [place] [address] [place] [id number] [address] [place] [address] Sep, [place] [address] [place] [id number] [address] [place] [address] Sep, Tick bite 919.4 [facility] [address] [id number] [address] [place] [address], [place] [address] 14 Jul, 2014 [facility] [address] [id number] [address] [place] [address], [place] [address] Jul, [facility] [address] [id number] [address] [place] [address], [place] [address] Jun, [facility] [address] [id number] [address] [place] [address], [place] [address] Jun, [facility] [address] [id number] [address] [place] [address], [place] [address] Apr, [facility] [address] [id number] [address] [place] [address], [place] [address] Apr, [facility] [address] [id number] [address] [place] [address], [place] [address] Mar, [facility] [address] [id number] [address] [place] [address], [place] [address] Mar, [facility] [address] [id number] [address] [place] [address], [place] [address] Jul, [facility] [address] [id number] [address] [place] [address], [place] [address] Jul, [facility] [address] [id number] [address] [place] [address], [place] [address] Jul, [facility] [address] [id number] [address] [place] [phone] Jul, [facility] [address] [id number] [address] [place] [address], [place] [address] Jul, [facility] [address] [id number] [address] [place] [address], [place] [address] Mar, [facility] [address] [id number] [address] [place] [address], [place] [address] Mar, [facility] [address] [id number] [address] [place] [address], [place] [address] August, [facility] [address] [id number] [address] [place] [address], [place] [address] August, [facility] [address] [id number] [address] [place] [address], [place] [address] May, [facility] [address] [id number] [address] [place] [address], [place] [address] Apr, [facility] [address] [id number] [address] [place] [address], [place] [address] Feb, [facility] [address] [id number] [address] [place] [address], [place] [address] Feb, [facility] [address] [id number] [address] [place] [address], [place] [address] Jan, [facility] [address] [id number] [address] [place] [address], [place] [address] Jan, [facility] [address] [id number] [address] [place] [address], [place] [address] Dec, [facility] [address] [id number] [address] [place] [address], [place] [address] Dec, [facility] [address] [id number] [address] [place] [address], [place] [address] Nov, [facility] [address] [id number] [address] [place] [address], [place] [address] Nov, [facility] [address] [id number] [address] [place] [address], [place] [address] Oct, [facility] [address] [id number] [address] [place] [address], [place] [address] May, [facility] [address] [id number] [address] [place] [address], [place] [address] May, [facility] [address] [id number] [address] [place] [address], [place] [address] May, [facility] [address] [facility] [id number] [address] [place] [address] Feb, [facility] [address] [facility] [id number] [address] [place] [address] Jun, [facility] [address] [facility] [id number] [address] [place] [phone] Feb, [facility] [address] [facility] [id number] [address] [place] [address] Jan, [facility] [address] [facility] [id number] [address] [place] [address] August, [facility] [address] [facility] [id number] [address] [place] [address] Jul, IMMUNIZATIONS No Known Immunizations SOCIAL HISTORY Never Assessed REASON FOR VISIT EMR-[facility] PLAN OF CARE VITAL SIGNS MEDICATIONS No Known Medications RESULTS No Results PROCEDURES No Known procedures INSTRUCTIONS MEDICATIONS ADMINISTERED No Known Medications MEDICAL (GENERAL) HISTORY Type Description Date Surgical History No Surgical history information
--- OUTSIDE RECORDS SUMMARY | 2019-10-06 18:55 | XMS REPORT ---
Author Author Britt Bhandari Doctor Organization [facility] Address Unknown Phone Unavailable Care Team Providers Care Physician Obstetrician Name Role Phone Migration, Doctor Unavailable Unavailable PROBLEMS Type Condition ICD9-CM Code [id number] Code Onset Dates Condition S tatus SNOMED Code Problem Mentally challenged F79 Active 30747145 Problem Constipation K59.00 Active 9433310 8 Problem UTI (urinary tract infection) N39.0 Active 54876726 Problem Seasonal allergic rhinitis due to other allergic trigger J30.89 Active 780029170 Problem Chronic fatigue R53.82 Active 8422 9001 Problem Tension headache G44.209 Active 398 486460 Problem Seasonal allergic rhinitis, unspecified allergic rhinitis trigger J30.2 Active 061617693 Problem Acute non intractable tension-type headache G44.20 9 Active 951278013 Problem Seasonal allergic rhinitis due to pollen J30.1 Active 48293822 ALLERGIES No Information ENCOUNTERS Encounter Location Date Diagnosis [facility] [address] [place] [address] 15 Aug, 2018 Sore throat J02.9 and Strep pharyngitis J02.0 [facility] [address] [place] [id number] [address] [place] [address] 14 Apr, 2018 Vomiting R11.10 [facility] [address] [place] [id number] [address] [place] [address] 12 Apr, 2018 Sore throat J02.9 and Strep pharyngitis J02.0 [facility] [address] [facility] [id number] [address] [place] [address] 11 Apr, 2018 [facility] [address] [place] [id number] [address] [place] [id number] 17 Mar, 2018 Acute nasopharyngitis J00 [facility] [address] [place] [address] [id number] [address] [place] [address] Feb, Tachycardia R00.0 ; Chest pa in at rest R07.9 and Chronic fatigue R53.82 [facility] [address] [facility] [id number] [address] [place] [address] Jan, Cough R05 [facility] [address] [facility] [id number] [address] [place] [address] Jan, Strep pharyngitis J02.0 and Sore throat J02.9 [facility] [address] [id number] [address] [place] [address] Jan, Seasonal allergic rhinitis d ue to other allergic trigger J30.89 [facility] [address] [facility] [id number] [place] [address] Nov, Dental caries K02.9 [facility] [address] [place] [id number] Sep, [facility] [address] [place] [address] [id number] Sep, [facility] [address] [id number] August, Encounter for dental examina tion Z01.20 [facility] [address] [facility] [id number] [place] [address] August, Seasonal allergic rhinitis, unspecified trigger J30.2 [facility] [address] [facility] [id number] [address] [place] [address] Jul, Frequent headaches R51 and F amily history of diabetes mellitus Z83.3 [facility] [address] [facility] [id number] [address] [place] [address] Jul, Dysfunction of left eustachi an tube H69.82 [facility] [address] [id number] [address] [place] [address] [id number] Jun, Encounter for dental examina tion Z01.20 [facility] [address] [facility] [id number] [address] [place] [address] Jun, Left ear pain H92.02 and Sea inés allergic rhinitis due to pollen J30.1 [facility] [address] [place] [address] Jun, Increased nausea and vomitin g R11.2 [facility] [address] [place] [address] Jun, Viral gastroenteritis A08.4 [facility] [address] [place] [address] Apr, Fever R50.9 and Strep pharyn gitis J02.0 [facility] [address] [place] [place] [address] Jan, Allergic contact dermatitis, unspecified trigger L23.9 [facility] [address] [place] [place] [address] Dec, Acute left ankle pain M25.57 2 [facility] [address] [place] [address] Nov, Seasonal allergic rhinitis, unspecified allergic rhinitis trigger J30.2 [facility] [address] [place] [address] Sep, Acute non intractable tensio n-type headache G44.209 [facility] [address] [place] [address] Sep, Gastroenteritis and colitis, viral A08.4 [facility] [address] [place] [place] [address] Jul, Seasonal allergic rhinitis, unspecified allergic rhinitis trigger J30.2 and Acute middle ear effusion, bilateral H65.193 [facility] [address] [place] [place] [address] Jun, Acute suppurative otitis med ia of right ear without spontaneous rupture of tympanic membrane, recurrence not specified H66.001 [facility] [address] [place] [id number] [address] [place] [address] 14 May, 2016 Mentally challenged F79 and Poor dentition K08.9 [place] [address] [place] [id number] [address] [place] [address] 30 Apr, 2016 Ankle strain, right, subsequ ent encounter S96.911D ; Tension headache G44.209 ; Wellness examination Z00.00 and Poor dentition K08.9 [facility] N [address] [address] Apr, Sprain of right knee, unspec ified ligament, initial encounter S83.91XA ; Sprain of right ankle, unspecified ligament, initial encounter S93.401A and Contusion of right elbow, initial encounter S50.01XA [facility] [place] [address] [address] Apr, Headache above the eye regio n R51 [facility] [place] [address] [place] [id number] [address] [place] [address] Jul, Gastroenteritis K52.9 [place] [address] [address] Apr, [place] [address] [address] Apr, UTI (urinary tract infection ) N39.0 and Constipation K59.00 [place] [address] [place] [id number] [address] [place] [address] Apr, Epigastric pain R10.13 and E pigastric abdominal pain R10.13 [place] [address] [place] [id number] [address] [place] [address] Feb, Sore throat J02.9 [place] [address] [place] [id number] [address] [place] [address] Sep, [place] [address] [place] [id number] [address] [place] [address] Sep, Tick bite 919.4 [facility] [address] [id number] [address] [place] [address], [place] [address] 14 Jul, 2014 [facility] [address] [id number] [address] [place] [address], [place] [address] Jul, [facility] [address] [id number] [address] [place] [address], [place] [address] Jun, [facility] [address] [id number] [address] [place] [address], [place] [address] Jun, [facility] [address] [id number] [address] [place] [address], [place] [address] Apr, [facility] [address] [id number] [address] [place] [address], [place] [address] Apr, [facility] [address] [id number] [address] [place] [address], [place] [address] Mar, [facility] [address] [id number] [address] [place] [address], [place] [address] Mar, [facility] [address] [id number] [address] [place] [address], [place] [address] Jul, [facility] [address] [id number] [address] [place] [address], [place] [address] Jul, [facility] [address] [id number] [address] [place] [address], [place] [address] Jul, [facility] [address] [id number] [address] [place] [address] Jul, [facility] [address] [id number] [address] [place] [address], [place] [address] Jul, [facility] [address] [id number] [address] [place] [address], [place] [address] Mar, [facility] [address] [id number] [address] [place] [address], [place] [address] Mar, [facility] [address] [id number] [address] [place] [address], [place] [address] August, [facility] [address] [id number] [address] [place] [address], [place] [address] August, [facility] [address] [id number] [address] [place] [address], [place] [address] May, [facility] [address] [id number] [address] [place] [address], [place] [address] Apr, [facility] [address] [id number] [address] [place] [address], [place] [address] Feb, [facility] [address] [id number] [address] [place] [address], [place] [address] Feb, [facility] [address] [id number] [address] [place] [address], [place] [address] Jan, [facility] [address] [id number] [address] [place] [address], [place] [address] Jan, [facility] [address] [id number] [address] [place] [address], [place] [address] Dec, [facility] [address] [id number] [address] [place] [address], [place] [address] Dec, [facility] [address] [id number] [address] [place] [address], [place] [address] Nov, [facility] [address] [id number] [address] [place] [address], [place] [address] Nov, [facility] [address] [id number] [address] [place] [address], [place] [address] Oct, [facility] [address] [id number] [address] [place] [address], [place] [address] May, [facility] [address] [id number] [address] [place] [address], [place] [address] May, [facility] [address] [id number] [address] [place] [address], [place] [address] May, [facility] [address] [facility] [id number] [address] [place] [address] Feb, [facility] [address] [facility] [id number] [address] [place] [address] Jun, [facility] [address] [facility] [id number] [address] [place] [address] Feb, [facility] [address] [facility] [id number] [address] [place] [address] Jan, [facility] [address] [facility] [id number] [address] [place] [address] August, [facility] [address] [facility] [id number] [address] [place] [address] Jul, IMMUNIZATIONS No Known Immunizations SOCIAL HISTORY Never Assessed REASON FOR VISIT PLAN OF CARE VITAL SIGNS Height 60 in 2014-04-28 Weight 158.9 lbs 2014-04-28 Temperature 98.2 degrees Fahrenheit 2014-04-28 Heart Rate 82 bpm 2014-04-28 Respiratory Rate 18 2014-04-28 Blood pressure systolic 120 mmHg 2014-04-28 Blood pressure diastolic 78 mmHg 2014-04-28 MEDICATIONS No Known Medications RESULTS No Results PROCEDURES No Known procedures INSTRUCTIONS MEDICATIONS ADMINISTERED No Known Medications MEDICAL (GENERAL) HISTORY Type Description Date Surgical History No Surgical history information
--- OUTSIDE RECORDS SUMMARY | 2019-10-06 18:56 | XMS REPORT ---
Author Author Britt Bhandari Doctor Organization [facility] Address Unknown Phone Unavailable Care Team Providers Care Shop Welder Name Role Phone Migration, Doctor Unavailable Unavailable PROBLEMS Type Condition ICD9-CM Code [id number] Code Onset Dates Condition S tatus SNOMED Code Problem Mentally challenged F79 Active 52460176 Problem Constipation K59.00 Active 5694620 8 Problem UTI (urinary tract infection) N39.0 Active 86198163 Problem Seasonal allergic rhinitis due to other allergic trigger J30.89 Active 186078319 Problem Chronic fatigue R53.82 Active 8422 9001 Problem Tension headache G44.209 Active 398 017094 Problem Seasonal allergic rhinitis, unspecified allergic rhinitis trigger J30.2 Active 136672726 Problem Acute non intractable tension-type headache G44.20 9 Active 786308746 Problem Seasonal allergic rhinitis due to pollen J30.1 Active 90932991 ALLERGIES No Information ENCOUNTERS Encounter Location Date Diagnosis [facility] [address] [address] 14 Apr, 2018 Vomiting R11.10 [facility] [address] [address] 12 Apr, 2018 Sore throat J02.9 and Strep pharyngitis J02.0 [facility] [address] [place] [id number] [address] [place] [address] Apr, [facility] [address] [place] [id number] [address] [place] [address] Mar, Acute nasopharyngitis J00 [facility] [address] [address] 08 Feb, 2018 Tachycardia R00.0 ; Chest pa in at rest R07.9 and Chronic fatigue R53.82 [facility] [address] [address] Jan, Cough R05 [facility] [address] [place] [id number] [place] [address] Jan, Strep pharyngitis J02.0 and Sore throat J02.9 [facility] [address] [facility] [id number] [address] [place] [address] Jan, Seasonal allergic rhinitis d ue to other allergic trigger J30.89 [facility] [address] [facility] [id number] [address] Nov, Dental caries K02.9 [facility] [address] [id number] Sep, [facility] [address] [id number] Sep, [facility] [address] [id number] August, Encounter for dental examina tion Z01.20 [facility] [address] [address] August, Seasonal allergic rhinitis, unspecified trigger J30.2 [facility] [address] [address] Jul, Frequent headaches R51 and F amily history of diabetes mellitus Z83.3 [facility] [address] [address] Jul, Dysfunction of left eustachi an tube H69.82 [facility] [address] [place] [id number] [place] [id number] Jun, Encounter for dental examina tion Z01.20 [facility] [address] [address] Jun, Left ear pain H92.02 and Sea inés allergic rhinitis due to pollen J30.1 [facility] [address] [address] Jun, Increased nausea and vomitin g R11.2 [facility] N [address] [address] Jun, Viral gastroenteritis A08.4 [facility] N [address] [address] Apr, Fever R50.9 and Strep pharyn gitis J02.0 [facility] N [address] [address] Jan, Allergic contact dermatitis, unspecified trigger L23.9 [facility] [address] [place] [address] Dec, Acute left ankle pain M25.57 2 [facility] [address] [place] [address] Nov, Seasonal allergic rhinitis, unspecified allergic rhinitis trigger J30.2 [facility] N [address] [address] Sep, Acute non intractable tensio n-type headache G44.209 [facility] [address] [place] [address] Sep, Gastroenteritis and colitis, viral A08.4 [facility] [address] [place] [address] Jul, Seasonal allergic rhinitis, unspecified allergic rhinitis trigger J30.2 and Acute middle ear effusion, bilateral H65.193 [facility] [address] [place] [address] Jun, Acute suppurative otitis med ia of right ear without spontaneous rupture of tympanic membrane, recurrence not specified H66.[address] [address] 14 May, 2016 Mentally challenged F79 and Poor dentition K08.9 [place] [address] [place] [address] 30 Apr, 2016 Ankle strain, right, subsequ ent encounter S96.911D ; Tension headache G44.209 ; Wellness examination Z00.00 and Poor dentition K08.9 [facility] [place] [address] [place] [id number] [address] [place] [address] Apr, Sprain of right knee, unspec ified ligament, initial encounter S83.91XA ; Sprain of right ankle, unspecified ligament, initial encounter S93.401A and Contusion of right elbow, initial encounter S50.01XA [facility] [place] [address] [place] [id number] [address] [place] [address] Apr, Headache above the eye regio n R51 [facility] [place] [address] [place] [id number] [address] [place] [address] 04 Jul, 2015 Gastroenteritis K52.9 [place] [address] [address] Apr, [place] [address] [place] [id number] [address] [place] [address] Apr, UTI (urinary tract infection ) N39.0 and Constipation K59.00 [place] [address] [place] [id number] [address] [place] [address] Apr, Epigastric pain R10.13 and E pigastric abdominal pain R10.13 [place] [address] [place] [address] Feb, Sore throat J02.9 [place] [address] [place] [address] Sep, [place] [address] [place] [id number] [address] [place] [address] Sep, Tick bite 919.4 [place] [address] [place] [id number] [address] [place] [address] Jul, [facility] [address] [id number] [address] [place] [address], [place] [address] 13 Jul, 2014 [facility] [address] [id number] [address] [place] [address], [place] [address] Jun, [facility] [address] [id number] [address] [place] [address], [place] [address] Jun, [facility] [address] [id number] [address] [place] [address], [place] [address] Apr, [facility] [address] [id number] [address] [place] [address], [place] [address] Apr, [facility] [address] [id number] [address] [place] [address], [place] [address] Mar, [facility] [address] [id number] [address] [place] [address], [place] [address] Mar, [facility] [address] [id number] [address] [place] [address], [place] [address] Jul, [facility] [address] [id number] [address] [place] [address], [place] [address] 14 Jul, 2013 [facility] [address] [id number] [address] [place] [address], [place] [address] Jul, [facility] [address] [id number] [address] [place] [address], [place] [address] Jul, [facility] [address] [id number] [address] [place] [address], [place] [address] Jul, [facility] [address] [id number] [address] [place] [address], [place] [address] Mar, [facility] [address] [id number] [address] [place] [address], [place] [address] Mar, [facility] [address] [id number] [address] [place] [address], [place] [address] August, [facility] [address] [id number] [address] [place] [address], [place] [address] August, [facility] [address] [id number] [address] [place] [address], [place] [address] May, [facility] [address] [id number] [address] [place] [address], [place] [address] Apr, [facility] [address] [id number] [address] [place] [address], [place] [address] Feb, [facility] [address] [id number] [address] [place] [address], [place] [address] Feb, [facility] [address] [id number] [address] [place] [address], [place] [address] Jan, [facility] [address] [id number] [address] [place] [address], [place] [id number] Jan, [facility] [address] [id number] [address] [place] [address], [place] [id number] Dec, [facility] [address] [id number] [address] [place] [address], [place] [id number] Dec, [facility] [address] [id number] [address] [place] [address], [place] [id number] Nov, [facility] [address] [id number] [address] [place] [address], [place] [id number] Nov, [facility] [address] [id number] [address] [place] [address], [place] [id number] Oct, [facility] [address] [id number] [address] [place] [id number] May, [facility] [address] [id number] [address] [place] [address], [place] [id number] May, [facility] [address] [id number] [address] [place] [address], [place] [id number] May, [facility] [address] [id number] [address] [place] [address], [place] [id number] Feb, [facility] [address] [id number] [address] [place] [id number] 14 Jun, 2010 [facility] [address] [facility] [id number] [address] [place] [id number] Feb, [facility] [address] [facility] [id number] [address] [place] [id number] Jan, [facility] [address] [facility] [id number] [address] [place] [id number] August, [facility] [address] [facility] [id number] [address] [place] [id number] Jul, IMMUNIZATIONS No Known Immunizations SOCIAL HISTORY Never Assessed REASON FOR VISIT EMR-[facility] PLAN OF CARE VITAL SIGNS MEDICATIONS Medication Instructions Dosage Frequency Start Date End Date Duration S tatus Augmentin 875-125 mg 1 tablet by Oral route 2 times pe r day for 10 day(s) Feb, Active Cipro 500 mg 1 tablet by Oral route every 12 hours for 10 day(s) Jul, Active Amoxicillin 500 mg 1 capsule by Oral route 3 times per day for 10 days Nov, Active RESULTS No Results PROCEDURES No Known procedures INSTRUCTIONS MEDICATIONS ADMINISTERED No Known Medications MEDICAL (GENERAL) HISTORY Type Description Date Surgical History No Surgical history information
--- OUTSIDE RECORDS SUMMARY | 2019-10-06 18:56 | XMS REPORT ---
Author Author Britt BUENROSTRO Organization [facility] Address [address] [place] [address] Care Team Providers Care Qa Test Analyst Name Role Phone AGUEDA BUENROSTRO Unavailable PROBLEMS Type Condition ICD9-CM Code [id number] Code Onset Dates Condition S tatus SNOMED Code Problem Constipation K59.00 Active 0827240 8 Problem Seasonal allergic rhinitis due to pollen J30.1 Active 16133489 Problem Acute non intractable tension-type headache G44.20 9 Active 195805951 Problem Mentally challenged F79 Active 76989154 Problem UTI (urinary tract infection) N39.0 Active 22811370 Problem Seasonal allergic rhinitis, unspecified allergic rhinitis trigger J30.2 Active 396601998 Problem Tension headache G44.209 Active 398 803423 ALLERGIES Substance Reaction Event Type Date Status Carafate Swelling/Itching Drug Allergy Nov, Active ENCOUNTERS Encounter Location Date Diagnosis [facility] [address] [address] Nov, Dental caries K02.9 [facility] [address] [id number] [place] [address] [id number] Sep, [facility] [id number] [place] [id number] Sep, [facility] [address] [place] [id number] [place] [address] [phone] August, Encounter for dental examina tion Z01.20 [facility] [address] [facility] [id number] [place] [address] August, Seasonal allergic rhinitis, unspecified trigger J30.2 [facility] [address] [facility] [id number] [place] [address] Jul, Frequent headaches R51 and F amily history of diabetes mellitus Z83.3 [facility] [address] [address] Jul, Dysfunction of left eustachi an tube H69.82 [facility] [address] [place] [address] [id number] [address] [place] [address] [id number] Jun, Encounter for dental examina tion Z01.20 [facility] [address] [address] Jun, Left ear pain H92.02 and Sea in[place] allergic rhinitis due to pollen J30.1 [facility] [address] [place] [address] Jun, Increased nausea and vomitin g R11.2 [facility] [address] [place] [address] Jun, Viral gastroenteritis A08.4 [facility] [address] [place] [address] Apr, Fever R50.9 and Strep pharyn gitis J02.0 [facility] [address] [place] [address] Jan, Allergic contact dermatitis, unspecified trigger L23.9 [facility] [address] [place] [address] Dec, Acute left ankle pain M25.57 2 [facility] [address] [place] [address] Nov, Seasonal allergic rhinitis, unspecified allergic rhinitis trigger J30.2 [facility] [address] [place] [address] Sep, Acute non intractable tensio n-type headache G44.209 [facility] [address] [place] [address] Sep, Gastroenteritis and colitis, viral A08.4 [facility] [address] [address] Jul, Seasonal allergic rhinitis, unspecified allergic rhinitis trigger J30.2 and Acute middle ear effusion, bilateral H65.193 [facility] [place] [address] [address] Jun, Acute suppurative otitis med ia of right ear without spontaneous rupture of tympanic membrane, recurrence not specified H66.001 [place] [address] [address] 14 May, 2016 Mentally challenged F79 and Poor dentition K08.[address] [address] Apr, Ankle strain, right, subsequ ent encounter S96.911D ; Tension headache G44.209 ; Wellness examination Z00.00 and Poor dentition K08.9 [facility] [address] [address] Apr, Sprain of right knee, unspec ified ligament, initial encounter S83.91XA ; Sprain of right ankle, unspecified ligament, initial encounter S93.401A and Contusion of right elbow, initial encounter S50.01XA [facility] [address] [address] Apr, Headache above the eye regio n R51 [facility] [place] [address] [address] Jul, Gastroenteritis K52.9 [place] [address] [address] Apr, [address] [address] Apr, UTI (urinary tract infection ) N39.0 and Constipation K59.[address] [address] Apr, Epigastric pain R10.13 and E pigastric abdominal pain R10.13 [facility] [address] [id number] [address] [place] [address] Feb, Sore throat J02.9 [facility] [address] [id number] [address] [place] [address] Sep, [facility] [address] [id number] [address] [place] [address] Sep, Tick bite 919.4 [facility] [address] [id number] [address] [place] [address] Jul, [facility] [address] [id number] [address] [place] [address] Jul, [facility] [address] [id number] [address] [place] [address] Jun, [facility] [address] [id number] [address] [place] [address] Jun, [facility] [address] [id number] [address] [place] [address] Apr, [facility] [address] [id number] [address] [place] [address] Apr, [facility] [address] [id number] [address] [place] [address] Mar, [facility] [address] [id number] [address] [place] [address] Mar, [facility] [address] [id number] [address] [place] [address] Jul, [facility] [address] [id number] [address] [place] [address] Jul, [facility] [address] [id number] [address] [place] [address] Jul, [facility] [address] [id number] [address] [place] [address] Jul, [facility] [address] [id number] [address] [place] [address], [place] [address] Jul, [facility] [address] [id number] [address] [place] [address], [place] [address] Mar, [facility] [address] [id number] [address] [place] [address], [place] [address] Mar, [facility] [address] [id number] [address] [place] [address], [place] [address] August, [facility] [address] [id number] [address] [place] [address], [place] [address] August, [facility] [address] [id number] [address] [place] [address], [place] [address] May, [facility] [address] [id number] [address] [place] [address], [place] [address] Apr, [facility] [address] [id number] [address] [place] [address], [place] [address] Feb, [facility] [address] [id number] [address] [place] [address], [place] [address] Feb, [facility] [address] [id number] [address] [place] [address], [place] [address] Jan, [facility] [address] [id number] [address] [place] [address], [place] [address] Jan, [facility] [address] [id number] [address] [place] [address], [place] [address] Dec, [facility] [address] [id number] [address] [place] [address], [place] [address] Dec, [facility] [address] [id number] [address] [place] [address], [place] [address] Nov, [facility] [address] [id number] [address] [place] [address], [place] [address] Nov, [facility] [address] [id number] [address] [place] [address] Oct, [facility] [address] [id number] [address] [place] [address] May, [facility] [address] [id number] [address] [place] [address] May, [facility] [address] [id number] [address] [place] [address] May, [facility] [address] [id number] [address] [place] [address] Feb, [facility] [address] [id number] [address] [place] [address] Jun, [facility] [address] [id number] [address] [place] [address] Feb, [facility] [address] [id number] [address] [place] [address] Jan, [facility] [address] [id number] [address] [place] [address] August, [facility] [address] [id number] [address] [place] [address] Jul, IMMUNIZATIONS No Known Immunizations SOCIAL HISTORY Never Assessed REASON FOR VISIT Physical- H & P. PT is needing dental work done [facility] PLAN OF CARE VITAL SIGNS Height 60 in 2017-11-08 Weight 156.4 lbs 2017-11-08 Temperature 98.0 degrees Fahrenheit 2017-11-08 Heart Rate 98 bpm 2017-11-08 Respiratory Rate 18 2017-11-08 Oximetry 99 % 2017-11-08 BMI 30.54 kg/m2 2017-11-08 Blood pressure systolic 108 mmHg 2017-11-08 Blood pressure diastolic 72 mmHg 2017-11-08 MEDICATIONS Medication Instructions Dosage Frequency Start Date End Date Duration S tatus Ibuprofen 800 MG Orally Three times a day 1 tablet with food or milk as needed 8h Jul, Active Tylenol 325 MG Orally every 6 hrs 2 ablet as needed 6h Active Flonase 50 MCG/ACT Nasally Once a day 1 spray in each nostril 24h Active Claritin 10 MG Orally Once a day 1 tablet 24h Active Topiramate 25 MG Orally Once a day, at night 1 tablet 2017 day(s) Not-Taking RESULTS No Results PROCEDURES No Known procedures INSTRUCTIONS MEDICATIONS ADMINISTERED No Known Medications
--- OUTSIDE RECORDS SUMMARY | 2019-10-06 18:56 | XMS REPORT ---
Author Author Britt Bhandari Doctor Organization [facility] Address Unknown Phone Unavailable Care Team Providers Care Commissary Agent Name Role Phone Migration, Doctor Unavailable Unavailable PROBLEMS Type Condition ICD9-CM Code [id number] Code Onset Dates Condition S tatus SNOMED Code Problem Mentally challenged F79 Active 57480471 Problem Constipation K59.00 Active 7427354 8 Problem UTI (urinary tract infection) N39.0 Active 06710645 Problem Seasonal allergic rhinitis due to other allergic trigger J30.89 Active 422536664 Problem Chronic fatigue R53.82 Active 8422 9001 Problem Tension headache G44.209 Active 398 544250 Problem Seasonal allergic rhinitis, unspecified allergic rhinitis trigger J30.2 Active 007390488 Problem Acute non intractable tension-type headache G44.20 9 Active 780170078 Problem Seasonal allergic rhinitis due to pollen J30.1 Active 96152037 ALLERGIES No Information ENCOUNTERS Encounter Location Date Diagnosis [facility] [address] [address] 14 Apr, 2018 Vomiting R11.10 [facility] [address] [address] 12 Apr, 2018 Sore throat J02.9 and Strep pharyngitis J02.0 [facility] [address] [place] [id number] [address] [place] [address] Apr, [facility] [address] [place] [id number] [address] [place] [address] Mar, Acute nasopharyngitis J00 [facility] [address] [address] 08 Feb, 2018 Tachycardia R00.0 ; Chest pa in at rest R07.9 and Chronic fatigue R53.82 [facility] [address] [address] Jan, Cough R05 [facility] [address] [place] [id number] [place] [address] Jan, Strep pharyngitis J02.0 and Sore throat J02.9 [facility] [address] [facility] [id number] [address] [place] [address] Jan, Seasonal allergic rhinitis d ue to other allergic trigger J30.89 [facility] [address] [facility] [id number] [address] Nov, Dental caries K02.9 [facility] [address] [id number] Sep, [facility] [address] [id number] Sep, [facility] [address] [id number] August, Encounter for dental examina tion Z01.20 [facility] [address] [address] August, Seasonal allergic rhinitis, unspecified trigger J30.2 [facility] [address] [address] Jul, Frequent headaches R51 and F amily history of diabetes mellitus Z83.3 [facility] [address] [address] Jul, Dysfunction of left eustachi an tube H69.82 [facility] [address] [place] [id number] [place] [id number] Jun, Encounter for dental examina tion Z01.20 [facility] [address] [address] Jun, Left ear pain H92.02 and Sea inés allergic rhinitis due to pollen J30.1 [facility] [address] [address] Jun, Increased nausea and vomitin g R11.2 [facility] [address] [address] Jun, Viral gastroenteritis A08.4 [facility] N [address] [address] Apr, Fever R50.9 and Strep pharyn gitis J02.0 [facility] N [address] [address] Jan, Allergic contact dermatitis, unspecified trigger L23.9 [facility] [address] [place] [address] Dec, Acute left ankle pain M25.57 2 [facility] [address] [place] [address] Nov, Seasonal allergic rhinitis, unspecified allergic rhinitis trigger J30.2 [facility] N [address] [address] Sep, Acute non intractable tensio n-type headache G44.209 [facility] [address] [place] [address] Sep, Gastroenteritis and colitis, viral A08.4 [facility] [address] [place] [address] Jul, Seasonal allergic rhinitis, unspecified allergic rhinitis trigger J30.2 and Acute middle ear effusion, bilateral H65.193 [facility] [address] [place] [address] Jun, Acute suppurative otitis med ia of right ear without spontaneous rupture of tympanic membrane, recurrence not specified H66.[address] [address] 14 May, 2016 Mentally challenged F79 and Poor dentition K08.9 [place] [address] [place] [address] 30 Apr, 2016 Ankle strain, right, subsequ ent encounter S96.911D ; Tension headache G44.209 ; Wellness examination Z00.00 and Poor dentition K08.9 [facility] [place] [address] [place] [id number] [place] [address] Apr, Sprain of right knee, unspec ified ligament, initial encounter S83.91XA ; Sprain of right ankle, unspecified ligament, initial encounter S93.401A and Contusion of right elbow, initial encounter S50.01XA [facility] [place] [address] [place] [id number] [place] [address] Apr, Headache above the eye regio n R51 [facility] [place] [address] [place] [id number] [address] [place] [address] 04 Jul, 2015 Gastroenteritis K52.9 [place] [address] [address] Apr, [place] [address] [place] [id number] [place] [address] Apr, UTI (urinary tract infection ) N39.0 and Constipation K59.00 [place] [address] [place] [id number] [place] [address] Apr, Epigastric pain R10.13 and E pigastric abdominal pain R10.13 [place] [address] [place] [address] Feb, Sore throat J02.9 [place] [address] [place] [address] Sep, [place] [address] [place] [id number] [address] [place] [address] Sep, Tick bite 919.4 [place] [address] [place] [id number] [address] [place] [address] Jul, [facility] [address] [id number] [address] [place] [address], [place] [address] 13 Jul, 2014 [facility] [address] [id number] [address] [place] [address], [place] [address] Jun, [facility] [address] [id number] [address] [place] [address], [place] [address] Jun, [facility] [address] [id number] [address] [place] [address], [place] [address] Apr, [facility] [address] [id number] [address] [place] [address], [place] [address] Apr, [facility] [address] [id number] [address] [place] [address], [place] [address] Mar, [facility] [address] [id number] [address] [place] [address], [place] [address] Mar, [facility] [address] [id number] [address] [place] [address], [place] [address] Jul, [facility] [address] [id number] [address] [place] [address], [place] [address] 14 Jul, 2013 [facility] [address] [id number] [address] [place] [address], [place] [address] Jul, [facility] [address] [id number] [address] [place] [address], [place] [address] Jul, [facility] [address] [id number] [address] [place] [address], [place] [address] Jul, [facility] [address] [id number] [address] [place] [address], [place] [address] Mar, [facility] [address] [id number] [address] [place] [address], [place] [address] Mar, [facility] [address] [id number] [address] [place] [address], [place] [address] August, [facility] [address] [id number] [address] [place] [address], [place] [address] August, [facility] [address] [id number] [address] [place] [address], [place] [address] May, [facility] [address] [id number] [address] [place] [address], [place] [address] Apr, [facility] [address] [id number] [address] [place] [address], [place] [address] Feb, [facility] [address] [id number] [address] [place] [address], [place] [address] Feb, [facility] [address] [id number] [address] [place] [address], [place] [address] Jan, [facility] [address] [id number] [address] [place] [address], [place] [address] Jan, [facility] [address] [id number] [address] [place] [address], [place] [address] Dec, [facility] [address] [id number] [address] [place] [address], [place] [address] Dec, [facility] [address] [id number] [address] [place] [address], [place] [address] Nov, [facility] [address] [id number] [address] [place] [address], [place] [address] Nov, [facility] [address] [id number] [address] [place] [address], [place] [address] Oct, [facility] [address] [id number] [address] [place] [phone] May, [facility] [address] [id number] [address] [place] [address], [place] [address] May, [facility] [address] [id number] [address] [place] [address], [place] [address] May, [facility] [address] [id number] [address] [place] [address], [place] [address] Feb, [facility] [address] [id number] [address] [place] [id number] 14 Jun, 2010 [facility] [address] [facility] [id number] [address] [place] [address] Feb, [facility] [address] [facility] [id number] [address] [place] [phone] Jan, [facility] [address] [facility] [id number] [address] [place] [phone] August, [facility] [address] [facility] [id number] [address] [place] [phone] Jul, IMMUNIZATIONS No Known Immunizations SOCIAL HISTORY Never Assessed REASON FOR VISIT EMR-[facility] PLAN OF CARE VITAL SIGNS MEDICATIONS No Known Medications RESULTS No Results PROCEDURES No Known procedures INSTRUCTIONS MEDICATIONS ADMINISTERED No Known Medications MEDICAL (GENERAL) HISTORY Type Description Date Surgical History No Surgical history information
--- OUTSIDE RECORDS SUMMARY | 2019-10-06 18:56 | XMS REPORT ---
Author Author Britt BUENROSTRO Organization [facility] Address [address] [place] [address] Care Team Providers Care Junior Systems Administrator Name Role Phone AGUEDA BUENROSTRO Unavailable PROBLEMS Type Condition ICD9-CM Code MVS06-DA Code Onset Dates Condition S tatus SNOMED Code Problem Constipation K59.00 Active 0641630 8 Problem Seasonal allergic rhinitis due to pollen J30.1 Active 81673445 Problem Acute non intractable tension-type headache G44.20 9 Active 726993626 Problem Mentally challenged F79 Active 45638881 Problem UTI (urinary tract infection) N39.0 Active 20688993 Problem Seasonal allergic rhinitis, unspecified allergic rhinitis trigger J30.2 Active 062440079 Problem Tension headache G44.209 Active 398 385175 ALLERGIES Substance Reaction Event Type Date Status Carafate Swelling/Itching Drug Allergy Jul, Active ENCOUNTERS Encounter Location Date Diagnosis [facility] [address] [address] Nov, Dental caries K02.9 [facility] [id number] [place] [address] [id number] Sep, [facility] [address] [place] [address] [id number] Sep, [facility] [id number] [place] [address] [id number] August, Encounter for dental examina tion Z01.20 [facility] [address] [facility] [id number] [place] [address] August, Seasonal allergic rhinitis, unspecified trigger J30.2 [facility] [address] [facility] [id number] [address] [place] [address] Jul, Frequent headaches R51 and F amily history of diabetes mellitus Z83.3 [facility] [address] [address] Jul, Dysfunction of left eustachi an tube H69.82 [facility] [address] [id number] [place] [id number] Jun, Encounter for dental examina tion Z01.20 [facility] [address] [address] Jun, Left ear pain H92.02 and Sea inés allergic rhinitis due to pollen J30.1 [facility] [address] [place] [address] Jun, Increased nausea and vomitin g R11.2 [facility] [address] [place] [address] Jun, Viral gastroenteritis A08.4 [facility] [address] [place] [address] Apr, Fever R50.9 and Strep pharyn gitis J02.0 [facility] [address] [place] [address] Jan, Allergic contact dermatitis, unspecified trigger L23.9 [facility] [address] [place] [address] Dec, Acute left ankle pain M25.57 2 [facility] [address] [place] [address] Nov, Seasonal allergic rhinitis, unspecified allergic rhinitis trigger J30.2 [facility] [address] [place] [address] Sep, Acute non intractable tensio n-type headache G44.209 [facility] [address] [place] [address] Sep, Gastroenteritis and colitis, viral A08.4 [facility] [address] [address] Jul, Seasonal allergic rhinitis, unspecified allergic rhinitis trigger J30.2 and Acute middle ear effusion, bilateral H65.193 [facility] [place] [address] [address] Jun, Acute suppurative otitis med ia of right ear without spontaneous rupture of tympanic membrane, recurrence not specified H66.001 [place] [address] [address] 14 May, 2016 Mentally challenged F79 and Poor dentition K08.[address] [address] Apr, Ankle strain, right, subsequ ent encounter S96.911D ; Tension headache G44.209 ; Wellness examination Z00.00 and Poor dentition K08.9 [facility] [address] [address] Apr, Sprain of right knee, unspec ified ligament, initial encounter S83.91XA ; Sprain of right ankle, unspecified ligament, initial encounter S93.401A and Contusion of right elbow, initial encounter S50.01XA [facility] [address] [address] Apr, Headache above the eye regio n R51 [facility] [place] [address] [address] Jul, Gastroenteritis K52.9 [place] [address] [address] Apr, [address] [address] Apr, UTI (urinary tract infection ) N39.0 and Constipation K59.[address] [address] Apr, Epigastric pain R10.13 and E pigastric abdominal pain R10.13 [facility] [address] [id number] [address] [place] [address] Feb, Sore throat J02.9 [facility] [address] [id number] [address] [place] [address] Sep, [facility] [address] [id number] [address] [place] [address] Sep, Tick bite 919.4 [facility] [address] [id number] [address] [place] [address] Jul, [facility] [address] [id number] [address] [place] [address] Jul, [facility] [address] [id number] [address] [place] [address] Jun, [facility] [address] [id number] [address] [place] [address] Jun, [facility] [address] [id number] [address] [place] [address] Apr, [facility] [address] [id number] [address] [place] [address] Apr, [facility] [address] [id number] [address] [place] [address] Mar, [facility] [address] [id number] [address] [place] [address] Mar, [facility] [address] [id number] [address] [place] [address] Jul, [facility] [address] [id number] [address] [place] [address] Jul, [facility] [address] [id number] [address] [place] [address] Jul, [facility] [address] [id number] [address] [place] [address] Jul, [facility] [address] [id number] [address] [place] [address], [place] [address] Jul, [facility] [address] [id number] [address] [place] [address], [place] [address] Mar, [facility] [address] [id number] [address] [place] [address], [place] [address] Mar, [facility] [address] [id number] [address] [place] [address], [place] [address] August, [facility] [address] [id number] [address] [place] [address], [place] [address] August, [facility] [address] [id number] [address] [place] [address], [place] [address] May, [facility] [address] [id number] [address] [place] [address], [place] [address] Apr, [facility] [address] [id number] [address] [place] [address], [place] [address] Feb, [facility] [address] [id number] [address] [place] [address], [place] [address] Feb, [facility] [address] [id number] [address] [place] [address], [place] [address] Jan, [facility] [address] [id number] [address] [place] [address], [place] [address] Jan, [facility] [address] [id number] [address] [place] [address], [place] [address] Dec, [facility] [address] [id number] [address] [place] [address], [place] [address] Dec, [facility] [address] [id number] [address] [place] [address], [place] [address] Nov, [facility] [address] [id number] [address] [place] [address], [place] [address] Nov, [facility] [address] [id number] [address] [place] [address] Oct, [facility] [address] [id number] [address] [place] [address] May, [facility] [address] [id number] [address] [place] [address] May, [facility] [address] [id number] [address] [place] [address] May, [facility] [address] [id number] [address] [place] [address] Feb, [facility] [address] [id number] [address] [place] [address] Jun, [facility] [address] [id number] [address] [place] [address] Feb, [facility] [address] [id number] [address] [place] [address] Jan, [facility] [address] [id number] [address] [place] [address] August, [facility] [address] [id number] [address] [place] [address] Jul, IMMUNIZATIONS No Known Immunizations SOCIAL HISTORY Never Assessed REASON FOR VISIT Transition of Care, headache concerns, patient is worried that she is a diabetic -[facility] PLAN OF CARE VITAL SIGNS Height 60 in 2017-07-27 Weight 158 lbs 2017-07-27 Temperature 98.4 degrees Fahrenheit 2017-07-27 Heart Rate 84 bpm 2017-07-27 Respiratory Rate 20 2017-07-27 BMI 30.85 kg/m2 2017-07-27 Blood pressure systolic 118 mmHg 2017-07-27 Blood pressure diastolic 76 mmHg 2017-07-27 MEDICATIONS Medication Instructions Dosage Frequency Start Date End Date Duration S tatus Claritin 10 MG Orally Once a day 1 tablet 24h Active Ibuprofen 800 MG Orally Three times a day 1 tablet with food or milk as needed 8h Jul, Active Topiramate 25 MG Orally Once a day, at night 1 tablet 2017 30 day(s) Active Tylenol 325 MG Orally every 6 hrs 2 ablet as needed 6h Active RESULTS No Results PROCEDURES Procedure Date Ordered Result Body Site VENIPUNCT, ROUTINE* July 27, 2017 COMPLETE CBC W/AUTO DIFF WBC July 27, 2017 ASSAY THYROID STIM HORMONE July 27, 2017 COMPREHEN METABOLIC PANEL July 27, 2017 INSTRUCTIONS MEDICATIONS ADMINISTERED No Known Medications
--- OUTSIDE RECORDS SUMMARY | 2019-10-06 18:56 | XMS REPORT ---
Author Author Britt BUENROSTRO Organization [facility] Address [address] [place] [address] Care Team Providers Care Ground Support Agent Name Role Phone AGUEDA BUENROSTRO Unavailable PROBLEMS Type Condition ICD9-CM Code QXO55-JM Code Onset Dates Condition S tatus SNOMED Code Problem Mentally challenged F79 Active 51423101 Problem UTI (urinary tract infection) N39.0 Active 99241386 Problem Constipation K59.00 Active 3205613 8 Problem Chronic fatigue R53.82 Active 8422 9001 Problem Seasonal allergic rhinitis due to other allergic trigger J30.89 Active 957953680 Problem Seasonal allergic rhinitis, unspecified allergic rhinitis trigger J30.2 Active 085438409 Problem Tension headache G44.209 Active 398 681412 Problem Seasonal allergic rhinitis due to pollen J30.1 Active 16594872 Problem Acute non intractable tension-type headache G44.20 9 Active 429201618 ALLERGIES Substance Reaction Event Type Date Status Carafate Swelling/Itching Drug Allergy Feb, Active ENCOUNTERS Encounter Location Date Diagnosis [facility] [address] [place] [address] [id number] [address] [place] [address] Feb, Tachycardia R00.0 ; Chest pa in at rest R07.9 and Chronic fatigue R53.82 [facility] [address] [place] [id number] [address] [place] [address] Jan, Cough R05 [facility] [address] [id number] [address] [place] [address] Jan, Strep pharyngitis J02.0 and Sore throat J02.9 [facility] [address] [facility] [id number] [address] [place] [address] Jan, Seasonal allergic rhinitis d ue to other allergic trigger J30.89 [facility] [address] [address] Nov, Dental caries K02.9 [facility] [id number] [place] [id number] Sep, [facility] [id number] [place] [address] [id number] Sep, [facility] [address] [id number] August, Encounter for dental examina tion Z01.20 [facility] [address] [address] August, Seasonal allergic rhinitis, unspecified trigger J30.2 [facility] [address] [address] Jul, Frequent headaches R51 and F amily history of diabetes mellitus Z83.3 [facility] [address] [address] Jul, Dysfunction of left eustachi an tube H69.82 [facility] [address] [place] [id number] Jun, Encounter for dental examina tion Z01.20 [facility] [address] [address] Jun, Left ear pain H92.02 and Sea inés allergic rhinitis due to pollen J30.1 [facility] [address] [address] Jun, Increased nausea and vomitin g R11.2 [facility] [address] [place] [phone] Jun, Viral gastroenteritis A08.4 [facility] [address] [address] Apr, Fever R50.9 and Strep pharyn gitis J02.0 [facility] [address] [place] [address] Jan, Allergic contact dermatitis, unspecified trigger L23.9 [facility] [address] [place] [address] Dec, Acute left ankle pain M25.57 2 [facility] [address] [address] Nov, Seasonal allergic rhinitis, unspecified allergic rhinitis trigger J30.2 [facility] [address] [place] [address] Sep, Acute non intractable tensio n-type headache G44.209 [facility] [address] [address] Sep, Gastroenteritis and colitis, viral A08.4 [facility] [address] [address] Jul, Seasonal allergic rhinitis, unspecified allergic rhinitis trigger J30.2 and Acute middle ear effusion, bilateral H65.193 [facility] [address] [address] Jun, Acute suppurative otitis med ia of right ear without spontaneous rupture of tympanic membrane, recurrence not specified H66.[address] [address] 14 May, 2016 Mentally challenged F79 and Poor dentition K08.[address] [address] Apr, Ankle strain, right, subsequ ent encounter S96.911D ; Tension headache G44.209 ; Wellness examination Z00.00 and Poor dentition K08.9 [facility] [address] [address] Apr, Sprain of right knee, unspec ified ligament, initial encounter S83.91XA ; Sprain of right ankle, unspecified ligament, initial encounter S93.401A and Contusion of right elbow, initial encounter S50.01XA [facility] [address] [facility] [id number] [address] [place] [address] 07 Apr, 2016 Headache above the eye regio n R51 [facility] [address] [facility] [id number] [address] [place] [address] 04 Jul, 2015 Gastroenteritis K52.9 [facility] [address] [place] [id number] [address] [place] [address] 15 Apr, 2015 [facility] [address] [facility] [id number] [address] [place] [address] 15 Apr, 2015 UTI (urinary tract infection ) N39.0 and Constipation K59.00 [place] [address] [facility] [id number] [address] [place] [address] 06 Apr, 2015 Epigastric pain R10.13 and E pigastric abdominal pain R10.13 [facility] [address] [place] [id number] [address] [place] [address] Feb, Sore throat J02.9 [facility] [address] [facility] [id number] [address] [place] [address] Sep, [facility] [address] [facility] [id number] [address] [place] [address] Sep, Tick bite 919.4 [place] [address] [place] [id number] [address] [place] [address] 14 Jul, 2014 [facility] [address] [facility] [id number] [address] [place] [address] Jul, [facility] [address] [place] [id number] [address] [place] [address] Jun, [facility] [address] [place] [id number] [address] [place] [address] Jun, [facility] [address] [place] [id number] [address] [place] [address] Apr, [facility] [address] [id number] [address] [place] [address], [place] [address] Apr, [facility] [address] [id number] [address] [place] [address], [place] [address] Mar, [facility] [address] [id number] [address] [place] [address], [place] [address] Mar, [facility] [address] [id number] [address] [place] [address], [place] [address] Jul, [facility] [address] [id number] [address] [place] [address], [place] [address] Jul, [facility] [address] [id number] [address] [place] [address], [place] [address] Jul, [facility] [address] [id number] [address] [place] [address], [place] [address] Jul, [facility] [address] [id number] [address] [place] [address], [place] [address] Jul, [facility] [address] [id number] [address] [place] [address], [place] [address] Mar, [facility] [address] [id number] [address] [place] [address], [place] [address] Mar, [facility] [address] [id number] [address] [place] [address], [place] [address] August, [facility] [address] [id number] [address] [place] [address], [place] [address] August, [facility] [address] [id number] [address] [place] [address], [place] [address] May, [facility] [address] [id number] [address] [place] [address], [place] [address] Apr, [facility] [address] [id number] [address] [place] [address], [place] [address] Feb, [facility] [address] [id number] [address] [place] [address], [place] [address] Feb, [facility] [address] [id number] [address] [place] [address], [place] [address] Jan, [facility] [address] [id number] [address] [place] [address], [place] [address] Jan, [facility] [address] [id number] [address] [place] [address], [place] [address] Dec, [facility] [address] [id number] [address] [place] [address], [place] [address] Dec, [facility] [address] [id number] [address] [place] [address], [place] [address] Nov, [facility] [address] [id number] [address] [place] [address], [place] [address] Nov, [facility] [address] [id number] [address] [place] [address], [place] [address] Oct, [facility] [address] [id number] [address] [place] [address], [place] [address] May, [facility] [address] [id number] [address] [place] [address], [place] [address] May, [facility] [address] [id number] [address] [place] [address], [place] [address] May, [facility] [address] [id number] [address] [place] [address], [place] [address] Feb, [facility] [address] [id number] [address] [place] [address], [place] [address] Jun, [facility] [address] [id number] [address] [place] [address], [place] [address] Feb, [facility] [address] [id number] [address] [place] [address], [place] [address] 30 Jan, 2009 [facility] [address] [id number] [address] [place] [address], [place] [address] August, [facility] [address] [id number] [address] [place] [address] Jul, IMMUNIZATIONS No Known Immunizations SOCIAL HISTORY Never Assessed REASON FOR VISIT high pulse/chest discomfort, PT reports she has been dealing with chest pains on /off, and notes it to be racing fast when she is trying to sleep along with head aches. -Junito HAWKINS PLAN OF CARE Activity Details Pending Test CRP, CARDIAC Future/Pending Procedure EKG, TRACING (IN-HOUSE) VITAL SIGNS Height 60 in 2018-02-15 Weight 159 lbs 2018-02-15 Temperature 98.4 degrees Fahrenheit 2018-02-15 Heart Rate 110 bpm 2018-02-15 Respiratory Rate 20 2018-02-15 Oximetry 99 % 2018-02-15 BMI 31.05 kg/m2 2018-02-15 Blood pressure systolic 122 mmHg 2018-02-15 Blood pressure diastolic 78 mmHg 2018-02-15 MEDICATIONS Medication Instructions Dosage Frequency Start Date End Date Duration S tatus Ibuprofen 800 MG Orally Three times a day 1 tablet with food or milk as needed 8h Jul, Active Flonase 50 MCG/ACT Nasally Once a day 1 spray in each nostril 24h Active Amoxicillin 875 MG Orally every 12 hrs 1 tablet 12h 10 Jan, 2018 10 day(s) Not-Taking Tylenol 325 MG Orally every 6 hrs 2 ablet as needed 6h Active Claritin 10 MG Orally Once a day 1 tablet 24h Active RESULTS No Results PROCEDURES Procedure Date Ordered Result Body Site X-RAY EXAM CHEST 2 VIEWS Feb 15, 2018 ELECTROCARDIOGRAM, TRACING Feb 15, 2018 ASSAY THYROID STIM HORMONE Feb 15, 2018 C-REACTIVE PROTEIN, HS Feb 15, 2018 URINALYSIS, AUTO, W/O SCOPE Feb 15, 2018 LIPID PANEL Feb 15, 2018 COMPLETE CBC W/AUTO DIFF WBC Feb 15, 2018 COMPREHEN METABOLIC PANEL Feb 15, 2018 INSTRUCTIONS MEDICATIONS ADMINISTERED No Known Medications MEDICAL (GENERAL) HISTORY Type Description Date Surgical History No know Surgical history
--- OUTSIDE RECORDS SUMMARY | 2019-10-06 18:56 | XMS REPORT ---
Author Author Britt MOTT [facility] [address] Address [address] [place] [address] Care Team Providers Care Field Return Repairer Name Role Phone MOTT, TIFFANIE Unavailable PROBLEMS Type Condition ICD9-CM Code EMG54-CI Code Onset Dates Condition S tatus SNOMED Code Problem Constipation K59.00 Active 1916541 8 Problem Seasonal allergic rhinitis due to pollen J30.1 Active 93405050 Problem Acute non intractable tension-type headache G44.20 9 Active 199172635 Problem Mentally challenged F79 Active 21643112 Problem UTI (urinary tract infection) N39.0 Active 57448850 Problem Seasonal allergic rhinitis, unspecified allergic rhinitis trigger J30.2 Active 632910012 Problem Tension headache G44.209 Active 398 859872 ALLERGIES Substance Reaction Event Type Date Status Carafate Swelling/Itching Drug Allergy Jul, Active ENCOUNTERS Encounter Location Date Diagnosis [facility] [address] [address] Nov, [facility] [address] [place] [address] [id number] [place] [address] [id number] Sep, [facility] [id number] [place] [address] [id number] Sep, [facility] [address] [id number] [place] [address] [id number] August, Encounter for dental examina tion Z01.20 [facility] [address] [place] [id number] [address] [place] [address] August, Seasonal allergic rhinitis, unspecified trigger J30.2 [facility] [address] [facility] [id number] [address] [place] [address] Jul, Frequent headaches R51 and F amily history of diabetes mellitus Z83.3 [facility] [address] [place] [address] [id number] [address] [place] [address] Jul, Dysfunction of left eustachi an tube H69.82 [facility] [address] [id number] [address] [place] [address] [id number] Jun, Encounter for dental examina tion Z01.20 [facility] [address] [address] Jun, Left ear pain H92.02 and Sea inés allergic rhinitis due to pollen J30.1 [facility] [address] [place] [address] Jun, Increased nausea and vomitin g R11.2 [facility] [address] [place] [address] Jun, Viral gastroenteritis A08.4 [facility] [address] [place] [address] Apr, Fever R50.9 and Strep pharyn gitis J02.0 [facility] [address] [place] [address] Jan, Allergic contact dermatitis, unspecified trigger L23.9 [facility] [address] [place] [address] Dec, Acute left ankle pain M25.57 2 [facility] [address] [place] [address] Nov, Seasonal allergic rhinitis, unspecified allergic rhinitis trigger J30.2 [facility] [address] [place] [address] Sep, Acute non intractable tensio n-type headache G44.209 [facility] [address] [place] [address] Sep, Gastroenteritis and colitis, viral A08.4 [facility] [address] [place] [id number] [address] [place] [address] Jul, Seasonal allergic rhinitis, unspecified allergic rhinitis trigger J30.2 and Acute middle ear effusion, bilateral H65.193 [facility] [place] [address] [address] Jun, Acute suppurative otitis med ia of right ear without spontaneous rupture of tympanic membrane, recurrence not specified H66.001 [place] [address] [address] 14 May, 2016 Mentally challenged F79 and Poor dentition K08.9 [place] [address] [address] Apr, Ankle strain, right, subsequ ent encounter S96.911D ; Tension headache G44.209 ; Wellness examination Z00.00 and Poor dentition K08.9 [facility] [place] [address] [address] Apr, Sprain of right knee, unspec ified ligament, initial encounter S83.91XA ; Sprain of right ankle, unspecified ligament, initial encounter S93.401A and Contusion of right elbow, initial encounter S50.01XA [facility] [place] [address] [address] Apr, Headache above the eye regio n R51 [facility] [place] [address] [address] Jul, Gastroenteritis K52.9 [place] [address] [address] Apr, [place] [address] [address] Apr, UTI (urinary tract infection ) N39.0 and Constipation K59.00 [place] [address] [address] Apr, Epigastric pain R10.13 and E pigastric abdominal pain R10.13 [facility] [address] [id number] [address] [place] [address] Feb, Sore throat J02.9 [facility] [address] [id number] [address] [place] [address] Sep, [facility] [address] [id number] [address] [place] [address] Sep, Tick bite 919.4 [facility] [address] [id number] [address] [place] [address] Jul, [facility] [address] [id number] [address] [place] [address] Jul, [facility] [address] [id number] [address] [place] [address] Jun, [facility] [address] [id number] [address] [place] [address] Jun, [facility] [address] [id number] [address] [place] [address] Apr, [facility] [address] [id number] [address] [place] [address] Apr, [facility] [address] [id number] [address] [place] [address] Mar, [facility] [address] [id number] [address] [place] [address] Mar, [facility] [address] [id number] [address] [place] [address] Jul, [facility] [address] [id number] [address] [place] [address] Jul, [facility] [address] [id number] [address] [place] [address] 12 Jul, 2013 [facility] [address] [id number] [address] [place] [address] Jul, [facility] [address] [id number] [address] [place] [address], [place] [address] Jul, [facility] [address] [id number] [address] [place] [address], [place] [address] Mar, [facility] [address] [id number] [address] [place] [address], [place] [address] Mar, [facility] [address] [id number] [address] [place] [address], [place] [address] August, [facility] [address] [id number] [address] [place] [address], [place] [address] August, [facility] [address] [id number] [address] [place] [address], [place] [address] May, [facility] [address] [id number] [address] [place] [address], [place] [address] Apr, [facility] [address] [id number] [address] [place] [address], [place] [address] Feb, [facility] [address] [id number] [address] [place] [address], [place] [address] Feb, [facility] [address] [id number] [address] [place] [address], [place] [address] Jan, [facility] [address] [id number] [address] [place] [address], [place] [address] Jan, [facility] [address] [id number] [address] [place] [address], [place] [address] Dec, [facility] [address] [id number] [address] [place] [address], [place] [address] Dec, [facility] [address] [id number] [address] [place] [address], [place] [address] Nov, [facility] [address] [id number] [address] [place] [address], [place] [address] Nov, [facility] [address] [id number] [address] [place] [address] Oct, [facility] [address] [id number] [address] [place] [address] May, [facility] [address] [id number] [address] [place] [address] May, [facility] [address] [id number] [address] [place] [address] May, [facility] [address] [facility] [id number] [address] [place] [address] Feb, [facility] [address] [facility] [id number] [address] [place] [address] Jun, [facility] [address] [facility] [id number] [address] [place] [address] Feb, [facility] [address] [facility] [id number] [address] [place] [address] Jan, [facility] [address] [facility] [id number] [address] [place] [address] August, [facility] [address] [facility] [id number] [address] [place] [address] Jul, IMMUNIZATIONS No Known Immunizations SOCIAL HISTORY Never Assessed REASON FOR VISIT left earache for 6 days. [email or web address] PLAN OF CARE Activity Details Follow Up prn Reason: VITAL SIGNS Height 60 in 2017-07-13 Weight 158.4 lbs 2017-07-13 Temperature 99.6 degrees Fahrenheit 2017-07-13 Heart Rate 88 bpm 2017-07-13 Respiratory Rate 20 2017-07-13 BMI 30.93 kg/m2 2017-07-13 Blood pressure systolic 116 mmHg 2017-07-13 Blood pressure diastolic 70 mmHg 2017-07-13 MEDICATIONS Medication Instructions Dosage Frequency Start Date End Date Duration S tatus Acetaminophen-Caffeine 500-65 MG Orally 2 times a day PRN headac hes 2 capsules Apr, Not-Taking Claritin 10 MG Orally Once a day 1 tablet 24h Active Tylenol 325 MG Orally every 6 hrs 2 ablet as needed 6h Active Zofran ODT 4 MG Orally every 8 hours as directed 8h 08 Jun, 2017 5 days Not-Taking Pepcid 20 MG Orally Once a day 1 tablet at bedtime 24h Jun, 30 day(s) Not-Taking Triamcinolone Acetonide 0.1 % Externally Twice a day 1 appli cation to affected area 12h Jan, 5 days Not-Taking Fluticasone Propionate 50 MCG/ACT Nasally Once a day 1 spray in each nostril 24h Jul, 30 day(s) Not-Taking RESULTS No Results PROCEDURES No Known procedures INSTRUCTIONS MEDICATIONS ADMINISTERED No Known Medications
--- OUTSIDE RECORDS SUMMARY | 2019-10-06 18:56 | XMS REPORT ---
Author Author Britt DOOLEY [facility] Address [address] [place] [address] Care Team Providers Care Clinical Appeals Reviewer Name Role Phone AME DOOLEY Unavailable PROBLEMS Type Condition ICD9-CM Code FZH17-DU Code Onset Dates Condition S tatus SNOMED Code Problem Constipation K59.00 Active 5332165 8 Problem Seasonal allergic rhinitis due to pollen J30.1 Active 75331474 Problem Acute non intractable tension-type headache G44.20 9 Active 366687310 Problem Mentally challenged F79 Active 27829570 Problem UTI (urinary tract infection) N39.0 Active 53795141 Problem Seasonal allergic rhinitis, unspecified allergic rhinitis trigger J30.2 Active 642180978 Problem Tension headache G44.209 Active 398 012627 ALLERGIES Substance Reaction Event Type Date Status Carafate Swelling/Itching Drug Allergy Jun, Active ENCOUNTERS Encounter Location Date Diagnosis [facility] [address] [place] [id number] [address] [place] [address] Nov, [facility] [address] [id number] [address] [place] [address] [phone] Sep, [facility] [id number] [place] [address] [id number] Sep, [facility] [address] [place] [address] [phone] August, Encounter for dental examina tion Z01.20 [facility] [address] [facility] [id number] [address] [place] [address] August, Seasonal allergic rhinitis, unspecified trigger J30.2 [facility] [address] [facility] [id number] [address] [place] [address] Jul, Frequent headaches R51 and F amily history of diabetes mellitus Z83.3 [facility] [address] [place] [address] [id number] [address] [place] [address] Jul, Dysfunction of left eustachi an tube H69.82 [facility] [address] [place] [address] [id number] [address] [place] [address] [id number] Jun, Encounter for dental examina tion Z01.20 [facility] [address] [address] Jun, Left ear pain H92.02 and Sea inés allergic rhinitis due to pollen J30.1 [facility] [address] [place] [address] Jun, Increased nausea and vomitin g R11.2 [facility] [address] [place] [address] Jun, Viral gastroenteritis A08.4 [facility] [address] [place] [address] Apr, Fever R50.9 and Strep pharyn gitis J02.0 [facility] [address] [place] [address] Jan, Allergic contact dermatitis, unspecified trigger L23.9 [facility] [address] [place] [address] Dec, Acute left ankle pain M25.57 2 [facility] [address] [place] [address] Nov, Seasonal allergic rhinitis, unspecified allergic rhinitis trigger J30.2 [facility] [address] [place] [address] Sep, Acute non intractable tensio n-type headache G44.209 [facility] [address] [place] [address] Sep, Gastroenteritis and colitis, viral A08.4 [facility] [address] [place], [place] [id number] [address] [place] [address] Jul, Seasonal allergic rhinitis, unspecified allergic rhinitis trigger J30.2 and Acute middle ear effusion, bilateral H65.193 [facility] [place] [address] [address] Jun, Acute suppurative otitis med ia of right ear without spontaneous rupture of tympanic membrane, recurrence not specified H66.001 [place] [address] [address] 14 May, 2016 Mentally challenged F79 and Poor dentition K08.[address] [address] Apr, Ankle strain, right, subsequ ent encounter S96.911D ; Tension headache G44.209 ; Wellness examination Z00.00 and Poor dentition K08.9 [facility] [place] [address] [address] Apr, Sprain of right knee, unspec ified ligament, initial encounter S83.91XA ; Sprain of right ankle, unspecified ligament, initial encounter S93.401A and Contusion of right elbow, initial encounter S50.01XA [facility] IN [place] [address] [address] Apr, Headache above the eye regio n R51 [facility] [place] [address] [address] [place] [id number] [address] [place] [address] Jul, Gastroenteritis K52.9 [place] [address] [place] [id number] [address] [place] [address] Apr, [place] [address] [address] Apr, UTI (urinary tract infection ) N39.0 and Constipation K59.00 [place] [address] [address] Apr, Epigastric pain R10.13 and E pigastric abdominal pain R10.13 [facility] [address] [id number] [address] [place] [address] Feb, Sore throat J02.9 [facility] [address] [id number] [address] [place] [address] Sep, [facility] [address] [id number] [address] [place] [address] Sep, Tick bite 919.4 [facility] [address] [id number] [address] [place] [address] Jul, [facility] [address] [id number] [address] [place] [address] Jul, [facility] [address] [id number] [address] [place] [address] Jun, [facility] [address] [id number] [address] [place] [address] Jun, [facility] [address] [id number] [address] [place] [address] Apr, [facility] [address] [id number] [address] [place] [address] Apr, [facility] [address] [id number] [address] [place] [address] Mar, [facility] [address] [id number] [address] [place] [address] Mar, [facility] [address] [id number] [address] [place] [address] Jul, [facility] [address] [id number] [address] [place] [address] Jul, [facility] [address] [id number] [address] [place] [phone] 12 Jul, 2013 [facility] [address] [id number] [address] [place] [address] Jul, [facility] [address] [id number] [address] [place] [address], [place] [address] Jul, [facility] [address] [id number] [address] [place] [address], [place] [address] Mar, [facility] [address] [id number] [address] [place] [address], [place] [address] Mar, [facility] [address] [id number] [address] [place] [address], [place] [address] August, [facility] [address] [id number] [address] [place] [address], [place] [address] August, [facility] [address] [id number] [address] [place] [address], [place] [address] May, [facility] [address] [id number] [address] [place] [address], [place] [address] Apr, [facility] [address] [id number] [address] [place] [address], [place] [address] Feb, [facility] [address] [id number] [address] [place] [address], [place] [address] Feb, [facility] [address] [id number] [address] [place] [address], [place] [address] Jan, [facility] [address] [id number] [address] [place] [address], [place] [address] Jan, [facility] [address] [id number] [address] [place] [address] Dec, [facility] [address] [id number] [address] [place] [address], [place] [address] Dec, [facility] [address] [id number] [address] [place] [address], [place] [address] Nov, [facility] [address] [id number] [address] [place] [address], [place] [address] Nov, [facility] [address] [id number] [address] [place] [address] Oct, [facility] [address] [id number] [address] [place] [address] May, [facility] [address] [id number] [address] [place] [address] May, [facility] [address] [id number] [address] [place] [address] May, [facility] [address] [id number] [address] [place] [phone] Feb, [facility] [address] [id number] [address] [place] [phone] Jun, [facility] [address] [id number] [address] [place] [address] Feb, [facility] [address] [facility] [id number] [address] [place] [phone] Jan, [facility] [address] [id number] [address] [place] [phone] August, [facility] [address] [facility] [id number] [address] [place] [phone] Jul, IMMUNIZATIONS No Known Immunizations SOCIAL HISTORY Never Assessed REASON FOR VISIT PROPHY PLAN OF CARE Activity Details Follow Up 4 Weeks Reason:VICTOR MANUEL/Prophy VITAL SIGNS Blood pressure systolic 113 mmHg 2017-07-06 Blood pressure diastolic 72 mmHg 2017-07-06 MEDICATIONS Medication Instructions Dosage Frequency Start Date End Date Duration S melinda Norris ODT 4 MG Orally every 8 hours as directed 8h Jun, 5 days Not-Taking Tylenol 325 MG Orally every 6 hrs 2 ablet as needed 6h Active Acetaminophen-Caffeine 500-65 MG Orally 2 times a day PRN headac hes 2 capsules Apr, Not-Taking Claritin 10 MG Orally Once a day 1 tablet 24h Active Fluticasone Propionate 50 MCG/ACT Nasally Once a day 1 spray in each nostril 24h Jul, 30 day(s) Not-Taking Triamcinolone Acetonide 0.1 % Externally Twice a day 1 appli cation to affected area 12h Jan, 2017 5 days Not-Taking Pepcid 20 MG Orally Once a day 1 tablet at bedtime 24h Jun, 30 day(s) Not-Taking PredniSONE 20 mg Orally Once a day 1 tablet 24h Jun, Jul, 05 days Active RESULTS No Results PROCEDURES Procedure Date Ordered Result Body Site INTRAORL-PERIAPICAL 1 FILM 28723 July 06, 2017 INTRAORL-PERIAPICAL EA ADD FILM July 06, 2017 BITEWINGS - FOUR FILMS July 06, 2017 INTRAORL-PERIAPICAL EA ADD FILM July 06, 2017 Full mouth debridement July 06, 2017 PANORAMIC FILM SEE ALSO CODE [id number] July 06, 2017 INSTRUCTIONS MEDICATIONS ADMINISTERED No Known Medications
--- OUTSIDE RECORDS SUMMARY | 2019-10-06 18:56 | XMS REPORT ---
Author Author Britt Bhandari Doctor Organization [facility] Address Unknown Phone Unavailable Care Team Providers Care Senior Qc Technician Name Role Phone Migration, Doctor Unavailable Unavailable PROBLEMS Type Condition ICD9-CM Code CUN99-ZJ Code Onset Dates Condition S tatus SNOMED Code Problem Mentally challenged F79 Active 45773620 Problem Constipation K59.00 Active 5574322 8 Problem UTI (urinary tract infection) N39.0 Active 54930790 Problem Seasonal allergic rhinitis due to other allergic trigger J30.89 Active 538313174 Problem Chronic fatigue R53.82 Active 8422 9001 Problem Tension headache G44.209 Active 398 989647 Problem Seasonal allergic rhinitis, unspecified allergic rhinitis trigger J30.2 Active 289125407 Problem Acute non intractable tension-type headache G44.20 9 Active 668044700 Problem Seasonal allergic rhinitis due to pollen J30.1 Active 45889729 ALLERGIES No Information ENCOUNTERS Encounter Location Date Diagnosis [facility] [address] [place] [id number] 15 Aug, 2018 Sore throat J02.9 and Strep pharyngitis J02.0 [facility] [address] [place] [id number] [address] [place] [id number] 14 Apr, [address] [facility] [address] [place] [id number] [address] [place] [id number] 12 Apr, 2018 Sore throat J02.9 and Strep pharyngitis J02.[address] [facility] [address] [facility] [id number] [address] [place] [id number] [address], [address] [facility] [address] [place] [id number] [address] [place] [id number] 17 Mar, 2018 Acute nasopharyngitis J00 [facility] [address] [place] [id number] [address] [place] [phone] Feb, Tachycardia R00.0 ; Chest pa in at rest R07.9 and Chronic fatigue R53.82 [facility] [address] [facility] [id number] [address] [place] [phone] Jan, Cough R05 [facility] [address] [facility] [id number] [address] [place] [phone] Jan, Strep pharyngitis J02.0 and Sore throat J02.9 [facility] [address] [id number] [address] [place] [phone] Jan, Seasonal allergic rhinitis d ue to other allergic trigger J30.89 [facility] [address] [facility] [id number] [place] [phone] Nov, Dental caries K02.9 [facility] [address] [place] [id number] Sep, [facility] [address] [place] [id number] Sep, [facility] [address] [id number] August, Encounter for dental examina tion Z01.20 [facility] [address] [facility] [id number] [place] [phone] August, Seasonal allergic rhinitis, unspecified trigger J30.2 [facility] [address] [facility] [id number] [address] [place] [phone] Jul, Frequent headaches R51 and F amily history of diabetes mellitus Z83.3 [facility] [address] [facility] [id number] [address] [place] [phone] Jul, Dysfunction of left eustachi an tube H69.82 [facility] [address] [id number] [address] [place] [address] [id number] Jun, Encounter for dental examina tion Z01.20 [facility] [address] [facility] [id number] [address] [place] [phone] Jun, Left ear pain H92.02 and Sea inés allergic rhinitis due to pollen J30.1 [facility] [address] [place] [phone] Jun, Increased nausea and vomitin g R11.2 [facility] [address] [place] [address] Jun, Viral gastroenteritis A08.4 [facility] [address] [place] [address] Apr, Fever R50.9 and Strep pharyn gitis J02.0 [facility] [address] [place] [address] Jan, Allergic contact dermatitis, unspecified trigger L23.9 [facility] [address] [place] [address] Dec, Acute left ankle pain M25.57 2 [facility] [address] [place] [address] Nov, Seasonal allergic rhinitis, unspecified allergic rhinitis trigger J30.2 [facility] [address] [place] [address] Sep, Acute non intractable tensio n-type headache G44.209 [facility] [address] [place] [address] Sep, Gastroenteritis and colitis, viral A08.4 [facility] [address] [place] [address] Jul, Seasonal allergic rhinitis, unspecified allergic rhinitis trigger J30.2 and Acute middle ear effusion, bilateral H65.193 [facility] [address] [place] [address] Jun, Acute suppurative otitis med ia of right ear without spontaneous rupture of tympanic membrane, recurrence not specified H66.001 [facility] [address] [place] [id number] [address] [place] [id number] 14 May, 2016 Mentally challenged F79 and Poor dentition K08.9 [place] [address] [place] [id number] [address] [place] [phone] 30 Apr, 2016 Ankle strain, right, subsequ ent encounter S96.911D ; Tension headache G44.209 ; Wellness examination Z00.00 and Poor dentition K08.9 [facility] [address] [address] Apr, Sprain of right knee, unspec ified ligament, initial encounter S83.91XA ; Sprain of right ankle, unspecified ligament, initial encounter S93.401A and Contusion of right elbow, initial encounter S50.01XA [facility] [place] [address] [address] Apr, Headache above the eye regio n R51 [facility] [place] [address] [place] [id number] [address] [place] [address] Jul, Gastroenteritis K52.9 [place] [address] [address] Apr, [place] [address] [address] Apr, UTI (urinary tract infection ) N39.0 and Constipation K59.00 [place] [address] [place] [id number] [address] [place] [address] Apr, Epigastric pain R10.13 and E pigastric abdominal pain R10.13 [place] [address] [place] [id number] [address] [place] [address] Feb, Sore throat J02.9 [place] [address] [place] [id number] [address] [place] [phone] Sep, [place] [address] [place] [id number] [address] [place] [phone] Sep, Tick bite 919.4 [facility] [address] [id number] [address] [place] [address], [place] [address] 14 Jul, 2014 [facility] [address] [id number] [address] [place] [address], [place] [address] Jul, [facility] [address] [id number] [address] [place] [address], [place] [address] Jun, [facility] [address] [id number] [address] [place] [address], [place] [address] Jun, [facility] [address] [id number] [address] [place] [address], [place] [address] Apr, [facility] [address] [id number] [address] [place] [address], [place] [address] Apr, [facility] [address] [id number] [address] [place] [address], [place] [address] Mar, [facility] [address] [id number] [address] [place] [address], [place] [address] Mar, [facility] [address] [id number] [address] [place] [address], [place] [address] Jul, [facility] [address] [id number] [address] [place] [address], [place] [address] Jul, [facility] [address] [id number] [address] [place] [address], [place] [address] Jul, [facility] [address] [id number] [address] [place] [phone] Jul, [facility] [address] [id number] [address] [place] [address], [place] [address] Jul, [facility] [address] [id number] [address] [place] [address], [place] [address] Mar, [facility] [address] [id number] [address] [place] [address], [place] [address] Mar, [facility] [address] [id number] [address] [place] [address], [place] [address] August, [facility] [address] [id number] [address] [place] [address], [place] [address] August, [facility] [address] [id number] [address] [place] [address], [place] [address] May, [facility] [address] [id number] [address] [place] [address], [place] [address] Apr, [facility] [address] [id number] [address] [place] [address], [place] [address] Feb, [facility] [address] [id number] [address] [place] [address], [place] [address] Feb, [facility] [address] [id number] [address] [place] [address], [place] [address] Jan, [facility] [address] [id number] [address] [place] [address], [place] [address] Jan, [facility] [address] [id number] [address] [place] [address], [place] [address] Dec, [facility] [address] [id number] [address] [place] [address], [place] [address] Dec, [facility] [address] [id number] [address] [place] [address], [place] [address] Nov, [facility] [address] [id number] [address] [place] [address], [place] [address] Nov, [facility] [address] [id number] [address] [place] [address], [place] [address] Oct, [facility] [address] [id number] [address] [place] [address], [place] [address] May, [facility] [address] [id number] [address] [place] [address], [place] [address] May, [facility] [address] [id number] [address] [place] [address], [place] [address] May, [facility] [address] [facility] [id number] [address] [place] [phone] Feb, [facility] [address] [facility] [id number] [address] [place] [phone] Jun, [facility] [address] [facility] [id number] [address] [place] [phone] Feb, [facility] [address] [facility] [id number] [address] [place] [phone] Jan, [facility] [address] [facility] [id number] [address] [place] [phone] August, [facility] [address] [facility] [id number] [address] [place] [phone] Jul, IMMUNIZATIONS No Known Immunizations SOCIAL HISTORY Never Assessed REASON FOR VISIT EMR-[facility] PLAN OF CARE VITAL SIGNS MEDICATIONS No Known Medications RESULTS No Results PROCEDURES No Known procedures INSTRUCTIONS MEDICATIONS ADMINISTERED No Known Medications MEDICAL (GENERAL) HISTORY Type Description Date Surgical History No Surgical history information
--- OUTSIDE RECORDS SUMMARY | 2019-10-06 18:56 | XMS REPORT ---
Author Author Britt DOOLEY [facility] Address [address] [place] [address] Care Team Providers Care Study Manager Name Role Phone AME DOOLEY Unavailable PROBLEMS Type Condition ICD9-CM Code [id number] Code Onset Dates Condition S tatus SNOMED Code Problem Constipation K59.00 Active 3295025 8 Problem Seasonal allergic rhinitis due to pollen J30.1 Active 70262244 Problem Acute non intractable tension-type headache G44.20 9 Active 145006413 Problem Mentally challenged F79 Active 51319217 Problem UTI (urinary tract infection) N39.0 Active 03806201 Problem Seasonal allergic rhinitis, unspecified allergic rhinitis trigger J30.2 Active 067662136 Problem Tension headache G44.209 Active 398 320243 ALLERGIES Substance Reaction Event Type Date Status Carafate Swelling/Itching Drug Allergy August, Active ENCOUNTERS Encounter Location Date Diagnosis [facility] [address] [address] Nov, Dental caries K02.9 [facility] [address] [facility] [id number] [address] [place] [id number] Sep, [facility] [address] [place] [id number] Sep, [facility] [address] [place] [id number] [place] [address] [id number] August, Encounter for dental examina tion Z01.20 [facility] [address] [facility] [id number] [place] [phone] August, Seasonal allergic rhinitis, unspecified trigger J30.2 [facility] [address] [facility] [id number] [address] [place] [address] Jul, Frequent headaches R51 and F amily history of diabetes mellitus Z83.3 [facility] [address] [place] [id number] [address] [place] [address] Jul, Dysfunction of left eustachi an tube H69.82 [facility] [address] [facility] [id number] [address] [place] [address] [id number] Jun, Encounter for dental examina tion Z01.20 [facility] [address] [address] Jun, Left ear pain H92.02 and Sea inés allergic rhinitis due to pollen J30.1 [facility] [address] [place] [address] Jun, Increased nausea and vomitin g R11.2 [facility] [address] [place] [address] Jun, Viral gastroenteritis A08.4 [facility] [address] [place] [address] Apr, Fever R50.9 and Strep pharyn gitis J02.0 [facility] [address] [place] [address] Jan, Allergic contact dermatitis, unspecified trigger L23.9 [facility] [address] [place] [address] Dec, Acute left ankle pain M25.57 2 [facility] [address] [place] [address] Nov, Seasonal allergic rhinitis, unspecified allergic rhinitis trigger J30.2 [facility] [address] [place] [address] Sep, Acute non intractable tensio n-type headache G44.209 [facility] [address] [place] [address] Sep, Gastroenteritis and colitis, viral A08.4 [facility] N [place] [id number] [address] [place] [address] Jul, Seasonal allergic rhinitis, unspecified allergic rhinitis trigger J30.2 and Acute middle ear effusion, bilateral H65.193 [facility] [place] [address] [address] Jun, Acute suppurative otitis med ia of right ear without spontaneous rupture of tympanic membrane, recurrence not specified H66.001 [place] [address] [address] 14 May, 2016 Mentally challenged F79 and Poor dentition K08.9 [place] [address] [address] Apr, Ankle strain, right, subsequ ent encounter S96.911D ; Tension headache G44.209 ; Wellness examination Z00.00 and Poor dentition K08.9 [facility] [place] [address] [address] Apr, Sprain of right knee, unspec ified ligament, initial encounter S83.91XA ; Sprain of right ankle, unspecified ligament, initial encounter S93.401A and Contusion of right elbow, initial encounter S50.01XA [facility] [place] [address] [address] Apr, Headache above the eye regio n R51 [facility] [place] [address] [address] Jul, Gastroenteritis K52.9 [place] [address] [address] Apr, [place] [address] [address] Apr, UTI (urinary tract infection ) N39.0 and Constipation K59.00 [place] [address] [address] 06 Luis Manuel, 2016 Epigastric pain R10.13 and E pigastric abdominal pain R10.13 [facility] [address] [id number] [address] [place] [address] Feb, Sore throat J02.9 [facility] [address] [id number] [address] [place] [address] Sep, [facility] [address] [id number] [address] [place] [address] Sep, Tick bite 919.4 [facility] [address] [id number] [address] [place] [address] Jul, [facility] [address] [id number] [address] [place] [address] Jul, [facility] [address] [id number] [address] [place] [address] Jun, [facility] [address] [id number] [address] [place] [address] Jun, [facility] [address] [id number] [address] [place] [address] Apr, [facility] [address] [id number] [address] [place] [address] Apr, [facility] [address] [id number] [address] [place] [address] Mar, [facility] [address] [id number] [address] [place] [address] Mar, [facility] [address] [id number] [address] [place] [phone] 14 Jul, 2013 [facility] [address] [id number] [address] [place] [phone] Jul, [facility] [address] [id number] [address] [place] [phone] 12 Jul, 2013 [facility] [address] [id number] [address] [place] [phone] Jul, [facility] [address] [id number] [address] [place] [address], [place] [address] Jul, [facility] [address] [id number] [address] [place] [address], [place] [address] Mar, [facility] [address] [id number] [address] [place] [address], [place] [address] Mar, [facility] [address] [id number] [address] [place] [address], [place] [address] August, [facility] [address] [id number] [address] [place] [address], [place] [address] August, [facility] [address] [id number] [address] [place] [address], [place] [address] May, [facility] [address] [id number] [address] [place] [address], [place] [address] Apr, [facility] [address] [id number] [address] [place] [address], [place] [address] Feb, [facility] [address] [id number] [address] [place] [address], [place] [address] Feb, [facility] [address] [id number] [address] [place] [address], [place] [address] Jan, [facility] [address] [id number] [address] [place] [address], [place] [address] Jan, [facility] [address] [id number] [address] [place] [address], [place] [address] Dec, [facility] [address] [id number] [address] [place] [address], [place] [address] Dec, [facility] [address] [id number] [address] [place] [address], [place] [address] Nov, [facility] [address] [id number] [address] [place] [address], [place] [address] Nov, [facility] [address] [id number] [address] [place] [address] Oct, [facility] [address] [id number] [address] [place] [address] May, [facility] [address] [id number] [address] [place] [address] May, [facility] [address] [id number] [address] [place] [address] May, [facility] [address] [id number] [address] [place] [phone] Feb, [facility] [address] [id number] [address] [place] [phone] Jun, [facility] [address] [id number] [address] [place] [address] Feb, [facility] [address] [id number] [address] [place] [phone] Jan, [facility] [address] [id number] [address] [place] [phone] August, [facility] [address] [id number] [place] [phone] Jul, IMMUNIZATIONS No Known Immunizations SOCIAL HISTORY Never Assessed REASON FOR VISIT VICTOR MANUEL/4-6 WK RECALL PLAN OF CARE Activity Details Follow Up First Available Reason:Lyndsey rative VITAL SIGNS Blood pressure systolic 119 mmHg 2017-08-17 Blood pressure diastolic 78 mmHg 2017-08-17 MEDICATIONS Medication Instructions Dosage Frequency Start Date End Date Duration S tatus Topiramate 25 MG Orally Once a day, at night 1 tablet 2017 30 day(s) Active Ibuprofen 800 MG Orally Three times [...] PROCEDURES Procedure Date Ordered Result Body Site COMP ORAL EVALUATION - NEW/EST PT August 17, 2017 PROPHYLAXIS - ADULT August 17, 2017 TOPICAL FLUORIDE VARNISH August 17, 2017 INSTRUCTIONS MEDICATIONS ADMINISTERED No Known Medications
--- OUTSIDE RECORDS SUMMARY | 2019-10-06 18:56 | XMS REPORT ---
Author Author Britt MAHAJAN Organization [facility] Address Unknown Care Team Providers Care Napper Runner Name Role Phone YOGESH MAHAJAN Unavailable PROBLEMS Type Condition ICD9-CM Code UIL66-ZI Code Onset Dates Condition S tatus SNOMED Code Problem Constipation K59.00 Active 7807579 8 Problem Seasonal allergic rhinitis due to pollen J30.1 Active 52858099 Problem Acute non intractable tension-type headache G44.20 9 Active 485641005 Problem Mentally challenged F79 Active 25826890 Problem UTI (urinary tract infection) N39.0 Active 78773168 Problem Seasonal allergic rhinitis, unspecified allergic rhinitis trigger J30.2 Active 819599473 Problem Tension headache G44.209 Active 398 [id number] ALLERGIES No Information ENCOUNTERS Encounter Location Date Diagnosis [facility] [address] [id number] [address] [place] [address] Nov, Dental caries K02.9 [facility] [address] [id number] Sep, [facility] [id number] [place] [address] [id number] Sep, [facility] [id number] [place] [address] [id number] August, Encounter for dental examina tion Z01.20 [facility] [address] [facility] [id number] [address] [place] [address] August, Seasonal allergic rhinitis, unspecified trigger J30.2 [facility] [address] [facility] [id number] [address] [place] [address] Jul, Frequent headaches R51 and F amily history of diabetes mellitus Z83.3 [facility] [address] [id number] [address] [place] [address] Jul, Dysfunction of left eustachi an tube H69.82 [facility] [address] [facility] [id number] [address] [place] [address] [id number] Jun, Encounter for dental examina tion Z01.20 [facility] [address] [address] Jun, Left ear pain H92.02 and Sea inés allergic rhinitis due to pollen J30.1 [facility] [address] [address] Jun, Increased nausea and vomitin g R11.2 [facility] [address] [place] [address] Jun, Viral gastroenteritis A08.4 [facility] [address] [place] [address] Apr, Fever R50.9 and Strep pharyn gitis J02.0 [facility] [address] [place] [address] Jan, Allergic contact dermatitis, unspecified trigger L23.9 [facility] [address] [place] [address] Dec, Acute left ankle pain M25.57 2 [facility] [address] [place] [address] Nov, Seasonal allergic rhinitis, unspecified allergic rhinitis trigger J30.2 [facility] [address] [place] [address] Sep, Acute non intractable tensio n-type headache G44.209 [facility] [address] [place] [address] Sep, Gastroenteritis and colitis, viral A08.4 [facility] [address] [place] [address] Jul, Seasonal allergic rhinitis, unspecified allergic rhinitis trigger J30.2 and Acute middle ear effusion, bilateral H65.193 [facility] [address] [facility] [id number] [address] [place] [address] Jun, Acute suppurative otitis med ia of right ear without spontaneous rupture of tympanic membrane, recurrence not specified H66.001 [place] [address] [id number] [address] [place] [address] 14 May, 2016 Mentally challenged F79 and Poor dentition K08.9 [place] [address] [facility] [id number] [address] [place] [address] Apr, Ankle strain, right, subsequ ent encounter S96.911D ; Tension headache G44.209 ; Wellness examination Z00.00 and Poor dentition K08.9 [facility] [place] [address] [id number] [address] [place] [address] Apr, Sprain of right knee, unspec ified ligament, initial encounter S83.91XA ; Sprain of right ankle, unspecified ligament, initial encounter S93.401A and Contusion of right elbow, initial encounter S50.01XA [facility] [place] [address] [id number] [address] [place] [address] Apr, Headache above the eye regio n R51 [facility] [place] [address] [id number] [address] [place] [address] Jul, Gastroenteritis K52.9 [place] [address] [id number] [address] [place] [address] Apr, [place] [address] [id number] [place] [address] Apr, UTI (urinary tract infection ) N39.0 and Constipation K59.00 [place] [address] [id number] [address] [place] [address] 06 Apr, 2015 Epigastric pain R10.13 and E pigastric abdominal pain R10.13 [place] [address] [id number] [address] [place] [address] Feb, Sore throat J02.9 [facility] [address] [id number] [address] [place] [address], [place] [address] Sep, [facility] [address] [id number] [address] [place] [address], [place] [address] Sep, Tick bite 919.4 [facility] [address] [id number] [address] [place] [address], [place] [address] Jul, [facility] [address] [id number] [address] [place] [address], [place] [address] Jul, [facility] [address] [id number] [address] [place] [address], [place] [address] Jun, [facility] [address] [id number] [address] [place] [address], [place] [address] Jun, [facility] [address] [id number] [address] [place] [address] Apr, [facility] [address] [id number] [address] [place] [address], [place] [address] Apr, [facility] [address] [id number] [address] [place] [address] Mar, [facility] [address] [id number] [address] [place] [address] Mar, [facility] [address] [id number] [address] [place] [address] Jul, [facility] [address] [id number] [address] [place] [address], [place] [address] 14 Jul, 2013 [facility] [address] [id number] [address] [place] [address] 12 Jul, 2013 [facility] [address] [id number] [address] [place] [phone] 10 Jul, 2013 [facility] [address] [id number] [address] [place] [address] Jul, [facility] [address] [id number] [address] [place] [address], [place] [address] Mar, [facility] [address] [id number] [address] [place] [address], [place] [address] Mar, [facility] [address] [id number] [address] [place] [address], [place] [address] August, [facility] [address] [id number] [address] [place] [address], [place] [address] August, [facility] [address] [id number] [address] [place] [address], [place] [address] May, [facility] [address] [id number] [address] [place] [address], [place] [address] Apr, [facility] [address] [id number] [address] [place] [address], [place] [address] Feb, [facility] [address] [id number] [address] [place] [address], [place] [address] Feb, [facility] [address] [id number] [address] [place] [address], [place] [address] Jan, [facility] [address] [id number] [address] [place] [address], [place] [address] Jan, [facility] [address] [id number] [address] [place] [address], [place] [address] Dec, [facility] [address] [id number] [address] [place] [address], [place] [address] Dec, [facility] [address] [id number] [address] [place] [address], [place] [address] Nov, [facility] [address] [id number] [address] [place] [address], [place] [address] Nov, [facility] [address] [id number] [address] [place] [address], [place] [address] Oct, [facility] [address] [id number] [address] [place] [address] May, [facility] [address] [id number] [address] [place] [address] May, [facility] [address] [id number] [address] [place] [address] May, [facility] [address] [facility] [id number] [address] [place] [address] Feb, [facility] [address] [facility] [id number] [address] [place] [address] Jun, [facility] [address] [facility] [id number] [address] [place] [address] Feb, [facility] [address] [facility] [id number] [address] [place] [address] Jan, [facility] [address] [facility] [id number] [address] [place] [address] August, [facility] [address] [facility] [id number] [address] [place] [address] Jul, IMMUNIZATIONS No Known Immunizations SOCIAL HISTORY Never Assessed REASON FOR VISIT PLAN OF CARE VITAL SIGNS MEDICATIONS No Known Medications RESULTS No Results PROCEDURES No Known procedures INSTRUCTIONS MEDICATIONS ADMINISTERED No Known Medications
--- OUTSIDE RECORDS SUMMARY | 2019-10-06 18:56 | XMS REPORT ---
Author Author Britt MAHAJAN Organization [facility] Address Unknown Care Team Providers Care Business Administration Professor Name Role Phone YOGESH MAHAJAN Unavailable PROBLEMS Type Condition ICD9-CM Code [id number] Code Onset Dates Condition S tatus SNOMED Code Problem Constipation K59.00 Active 7586653 8 Problem Seasonal allergic rhinitis due to pollen J30.1 Active 16298272 Problem Acute non intractable tension-type headache G44.20 9 Active 358031120 Problem Mentally challenged F79 Active 28269881 Problem UTI (urinary tract infection) N39.0 Active 86129323 Problem Seasonal allergic rhinitis, unspecified allergic rhinitis trigger J30.2 Active 524415909 Problem Tension headache G44.209 Active 398 [id number] ALLERGIES No Information ENCOUNTERS Encounter Location Date Diagnosis [facility] [address] [id number] [address] [place] [address] Nov, Dental caries K02.9 [facility] [address] [id number] Sep, [facility] [id number] [place] [address] [id number] Sep, [facility] [id number] [place] [address] [id number] August, Encounter for dental examina tion Z01.20 [facility] [address] [facility] [id number] [address] [place] [address] August, Seasonal allergic rhinitis, unspecified trigger J30.2 [facility] [address] [facility] [id number] [address] [place] [address] Jul, Frequent headaches R51 and F amily history of diabetes mellitus Z83.3 [facility] [address] [id number] [address] [place] [address] Jul, Dysfunction of left eustachi an tube H69.82 [facility] [address] [facility] [id number] [address] [place] [address] [id number] Jun, Encounter for dental examina tion Z01.20 [facility] [address] [address] Jun, Left ear pain H92.02 and Sea inés allergic rhinitis due to pollen J30.1 [facility] [address] [address] Jun, Increased nausea and vomitin g R11.2 [facility] [address] [place] [address] Jun, Viral gastroenteritis A08.4 [facility] [address] [place] [address] Apr, Fever R50.9 and Strep pharyn gitis J02.0 [facility] [address] [place] [address] Jan, Allergic contact dermatitis, unspecified trigger L23.9 [facility] [address] [place] [address] Dec, Acute left ankle pain M25.57 2 [facility] [address] [place] [address] Nov, Seasonal allergic rhinitis, unspecified allergic rhinitis trigger J30.2 [facility] [address] [place] [address] Sep, Acute non intractable tensio n-type headache G44.209 [facility] [address] [place] [address] Sep, Gastroenteritis and colitis, viral A08.4 [facility] [address] [place] [address] Jul, Seasonal allergic rhinitis, unspecified allergic rhinitis trigger J30.2 and Acute middle ear effusion, bilateral H65.193 [facility] [address] [facility] [id number] [address] [place] [address] Jun, Acute suppurative otitis med ia of right ear without spontaneous rupture of tympanic membrane, recurrence not specified H66.001 [place] [address] [place] [id number] [address] [place] [address] 14 May, 2016 Mentally challenged F79 and Poor dentition K08.9 [place] [address] [facility] [id number] [address] [place] [address] Apr, Ankle strain, right, subsequ ent encounter S96.911D ; Tension headache G44.209 ; Wellness examination Z00.00 and Poor dentition K08.9 [facility] [place] [address] [address] [id number] [address] [place] [address] Apr, Sprain of right knee, unspec ified ligament, initial encounter S83.91XA ; Sprain of right ankle, unspecified ligament, initial encounter S93.401A and Contusion of right elbow, initial encounter S50.01XA [facility] [place] [address] [place] [address] [id number] [address] [place] [address] Apr, Headache above the eye regio n R51 [facility] [place] [address] [address] [id number] [address] [place] [address] Jul, Gastroenteritis K52.9 [place] [address] [place] [id number] [address] [place] [address] Apr, [place] [address] [place] [id number] [address] [place] [address] Apr, UTI (urinary tract infection ) N39.0 and Constipation K59.00 [place] [address] [place] [id number] [address] [place] [address] 06 Apr, 2015 Epigastric pain R10.13 and E pigastric abdominal pain R10.13 [place] [address] [place] [id number] [address] [place] [address] Feb, Sore throat J02.9 [facility] [address] [id number] [address] [place] [address], [place] [address] Sep, [facility] [address] [id number] [address] [place] [address], [place] [address] Sep, Tick bite 919.4 [facility] [address] [id number] [address] [place] [address], [place] [address] Jul, [facility] [address] [id number] [address] [place] [address], [place] [address] Jul, [facility] [address] [id number] [address] [place] [address], [place] [address] Jun, [facility] [address] [id number] [address] [place] [address], [place] [address] Jun, [facility] [address] [id number] [address] [place] [address] Apr, [facility] [address] [id number] [address] [place] [address], [place] [address] Apr, [facility] [address] [id number] [address] [place] [phone] Mar, [facility] [address] [id number] [address] [place] [address] Mar, [facility] [address] [id number] [address] [place] [phone] Jul, [facility] [address] [id number] [address] [place] [address], [place] [address] 14 Jul, 2013 [facility] [address] [id number] [address] [place] [address] 12 Jul, 2013 [facility] [address] [id number] [address] [place] [address] 10 Jul, 2013 [facility] [address] [id number] [address] [place] [address] Jul, [facility] [address] [id number] [address] [place] [address], [place] [address] Mar, [facility] [address] [id number] [address] [place] [address], [place] [address] Mar, [facility] [address] [id number] [address] [place] [address], [place] [address] August, [facility] [address] [id number] [address] [place] [address], [place] [address] August, [facility] [address] [id number] [address] [place] [address], [place] [address] May, [facility] [address] [id number] [address] [place] [address], [place] [address] Apr, [facility] [address] [id number] [address] [place] [address], [place] [address] Feb, [facility] [address] [id number] [address] [place] [address], [place] [address] Feb, [facility] [address] [id number] [address] [place] [address], [place] [address] Jan, [facility] [address] [id number] [address] [place] [address], [place] [address] Jan, [facility] [address] [id number] [address] [place] [address], [place] [address] Dec, [facility] [address] [id number] [address] [place] [address], [place] [address] Dec, [facility] [address] [id number] [address] [place] [address], [place] [address] Nov, [facility] [address] [id number] [address] [place] [address], [place] [address] Nov, [facility] [address] [id number] [address] [place] [address], [place] [address] Oct, [facility] [address] [id number] [address] [place] [phone] May, [facility] [address] [id number] [address] [place] [address] May, [facility] [address] [id number] [address] [place] [address] May, [facility] [address] [facility] [id number] [address] [place] [phone] Feb, [facility] [address] [facility] [id number] [address] [place] [address] Jun, [facility] [address] [facility] [id number] [address] [place] [phone] Feb, [facility] [address] [facility] [id number] [address] [place] [phone] Jan, [facility] [address] [facility] [id number] [address] [place] [phone] August, [facility] [address] [facility] [id number] [address] [place] [address] Jul, IMMUNIZATIONS No Known Immunizations SOCIAL HISTORY Never Assessed REASON FOR VISIT Referral PLAN OF CARE VITAL SIGNS MEDICATIONS No Known Medications RESULTS No Results PROCEDURES No Known procedures INSTRUCTIONS MEDICATIONS ADMINISTERED No Known Medications
--- OUTSIDE RECORDS SUMMARY | 2019-10-06 18:57 | XMS REPORT ---
Author Author Britt AGUILAR Organization 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 Phone MICA AGUILAR Unavailable PROBLEMS Type Condition ICD9-CM Code [id number] Code Onset Dates Condition S tatus SNOMED Code Problem Constipation K59.00 Active 6873139 8 Problem Seasonal allergic rhinitis due to pollen J30.1 Active 98836023 Problem Acute non intractable tension-type headache G44.20 9 Active 815096542 Problem Mentally challenged F79 Active 49662465 Problem UTI (urinary tract infection) N39.0 Active 62735417 Problem Seasonal allergic rhinitis, unspecified allergic rhinitis trigger J30.2 Active 129882189 Problem Tension headache G44.209 Active 398 935902 ALLERGIES Substance Reaction Event Type Date Status Carafate Swelling/Itching Drug Allergy Jun, Active ENCOUNTERS Encounter Location Date Diagnosis [facility] [address] [place] [id number] [address] [place] [phone] Nov, [facility] [place] [address] [facility] [id number] [address] [place] [id number] Sep, [facility] [place] [facility] [id number] [place] [phone] Sep, [facility] [place] [facility] [id number] [place] [phone] August, Encounter for dental examina tion Z01.20 [facility] [address] [place] [id number] [address] [place] [phone] August, Seasonal allergic rhinitis, unspecified trigger J30.2 [facility] [address] [facility] [id number] [address] [place] [phone] Jul, Frequent headaches R51 and F amily history of diabetes mellitus Z83.3 [facility] [address] [place] [id number] [address] [place] [phone] Jul, Dysfunction of left eustachi an tube H69.82 [facility] [address] [place] [id number] [address] [place] [address] [id number] Jun, Encounter for dental examina tion Z01.20 [facility] [address] [address] Jun, Left ear pain H92.02 and Sea in[place] allergic rhinitis due to pollen J30.1 [facility] [address] [place] [phone] Jun, Increased nausea and vomitin g R11.2 [facility] [address] [place] [address] Jun, Viral gastroenteritis A08.4 [facility] [address] [place] [phone] Apr, Fever R50.9 and Strep pharyn gitis J02.0 [facility] [address] [place] [phone] Jan, Allergic contact dermatitis, unspecified trigger L23.9 [facility] [address] [place] [phone] Dec, Acute left ankle pain M25.57 2 [facility] [address] [place] [phone] Nov, Seasonal allergic rhinitis, unspecified allergic rhinitis trigger J30.2 [facility] [address] [place] [phone] Sep, Acute non intractable tensio n-type headache G44.209 [facility] [address] [place] [phone] Sep, Gastroenteritis and colitis, viral A08.4 [facility] [address] [place], [place] [id number] [address] [place] [phone] Jul, Seasonal allergic rhinitis, unspecified allergic rhinitis trigger J30.2 and Acute middle ear effusion, bilateral H65.193 [facility] [place] [address] [address] Jun, Acute suppurative otitis med ia of right ear without spontaneous rupture of tympanic membrane, recurrence not specified H66.001 [place] [address] [address] 14 May, 2016 Mentally challenged F79 and Poor dentition K08.[address] [address] Apr, Ankle strain, right, subsequ ent encounter S96.911D ; Tension headache G44.209 ; Wellness examination Z00.00 and Poor dentition K08.9 [facility] [address] [address] Apr, Sprain of right knee, unspec ified ligament, initial encounter S83.91XA ; Sprain of right ankle, unspecified ligament, initial encounter S93.401A and Contusion of right elbow, initial encounter S50.01XA [facility] [place] [address] [address] Apr, Headache above the eye regio n R51 [facility] [place] [address] [address] Jul, Gastroenteritis K52.9 [place] [address] [address] Apr, [place] [address] [address] Apr, UTI (urinary tract infection ) N39.0 and Constipation K59.00 [place] [address] [address] Apr, Epigastric pain R10.13 and E pigastric abdominal pain R10.13 [facility] [address] [id number] [address] [place] [phone] Feb, Sore throat J02.9 [facility] [address] [id number] [address] [place] [phone] Sep, [facility] [address] [id number] [address] [place] [phone] Sep, Tick bite 919.4 [facility] [address] [id number] [address] [place] [phone] Jul, [facility] [address] [id number] [address] [place] [phone] Jul, [facility] [address] [id number] [address] [place] [phone] Jun, [facility] [address] [id number] [address] [place] [phone] Jun, [facility] [address] [id number] [address] [place] [phone] Apr, [facility] [address] [id number] [address] [place] [phone] Apr, [facility] [address] [id number] [address] [place] [phone] Mar, [facility] [address] [id number] [address] [place] [phone] Mar, [facility] [address] [id number] [address] [place] [phone] Jul, [facility] [address] [id number] [address] [place] [phone] Jul, [facility] [address] [id number] [address] [place] [phone] 12 Jul, 2013 [facility] [address] [id number] [address] [place] [phone] Jul, [facility] [address] [id number] [address] [place] [address], [place] [address] Jul, [facility] [address] [id number] [address] [place] [address], [place] [address] Mar, [facility] [address] [id number] [address] [place] [address], [place] [address] Mar, [facility] [address] [id number] [address] [place] [address], [place] [address] August, [facility] [address] [id number] [address] [place] [address], [place] [address] August, [facility] [address] [id number] [address] [place] [address], [place] [address] May, [facility] [address] [id number] [address] [place] [address], [place] [address] Apr, [facility] [address] [id number] [address] [place] [address], [place] [address] Feb, [facility] [address] [id number] [address] [place] [address], [place] [address] Feb, [facility] [address] [id number] [address] [place] [address], [place] [address] Jan, [facility] [address] [id number] [address] [place] [address], [place] [address] Jan, [facility] [address] [id number] [address] [place] [address], [place] [address] Dec, [facility] [address] [id number] [address] [place] [address], [place] [address] Dec, [facility] [address] [id number] [address] [place] [address], [place] [address] Nov, [facility] [address] [id number] [address] [place] [address], [place] [address] Nov, [facility] [address] [id number] [address] [place] [phone] Oct, [facility] [address] [id number] [address] [place] [phone] May, [facility] [address] [id number] [address] [place] [phone] May, [facility] [address] [id number] [address] [place] [phone] May, [facility] [address] [id number] [address] [place] [phone] Feb, [facility] [address] [id number] [address] [place] [phone] Jun, [facility] [address] [id number] [address] [place] [phone] Feb, [facility] [address] [id number] [address] [place] [phone] Jan, [facility] [address] [id number] [address] [place] [phone] August, [facility] [address] [id number] [address] [place] [phone] Jul, IMMUNIZATIONS No Known Immunizations SOCIAL HISTORY Never Assessed REASON FOR VISIT Left Ear pain started yesterday JStrasserRN PLAN OF CARE Activity Details Follow Up prn PCP William Reason: VITAL SIGNS Height 60 in 2017-07-06 Weight 154.8 lbs 2017-07-06 Temperature 97.1 degrees Fahrenheit 2017-07-06 Heart Rate 84 bpm 2017-07-06 Respiratory Rate 20 2017-07-06 BMI 30.23 kg/m2 2017-07-06 Blood pressure systolic 100 mmHg 2017-07-06 Blood pressure diastolic 70 mmHg 2017-07-06 MEDICATIONS Medication Instructions Dosage Frequency Start Date End Date Duration S tatus Claritin 10 MG Orally Once a day 1 tablet 24h Active Tylenol 325 MG Orally every 6 hrs 2 ablet as needed 6h Not-Taking PredniSONE 20 mg Orally Once a day 1 tablet 24h Jun, Jul, 05 days Active Pepcid 20 MG Orally Once a day 1 tablet at bedtime 24h Jun, 30 day(s) Not-Taking Acetaminophen-Caffeine 500-65 MG Orally 2 times a day PRN headac hes 2 capsules Apr, Not-Taking Zofran ODT 4 MG Orally every 8 hours as directed 8h Jun, 5 days Not-Taking Fluticasone Propionate 50 MCG/ACT Nasally Once a day 1 spray in each nostril 24h Jul, 30 day(s) Not-Taking Triamcinolone Acetonide 0.1 % Externally Twice a day 1 appli cation to affected area 12h Jan, 5 days Not-Taking RESULTS No Results PROCEDURES No Known procedures INSTRUCTIONS MEDICATIONS ADMINISTERED No Known Medications
--- OUTSIDE RECORDS SUMMARY | 2019-10-06 18:57 | XMS REPORT | Continuity of Care Document ---
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 [id number] 03/15/2013 13:40:26 ACT Document Registration [id number] 04/28/2014 17:36:00 04/28/2014 23:59: 59 CLS Outpatient BRIONNA KINCAID DO [id number] 03/17/2014 14:11:00 03/17/2014 23:59: 59 CLS Outpatient RAZ COUGHLIN APRN [id number] 07/18/2013 17:32:00 07/18/2013 23:59: 59 CLS Outpatient OMKAR ALEJANDRO APRN [id number] 03/15/2013 12:14:00 03/15/2013 23:59: 59 CLS Outpatient RAZ COUGHLIN APRN [id number] 05/14/2012 14:58:00 05/14/2012 23:59: 59 CLS Outpatient [id number] 05/01/2012 15:18:00 05/01/2012 23:59: 59 CLS Outpatient [id number] 02/08/2012 14:46:00 02/08/2012 23:59:5 9 [facility] Outpatient BRIONNA KINCAID DO [id number] 08/29/2012 13:47:00 Document Registration [id number] 08/16/2012 14:06:00 Document Registration
--- OUTSIDE RECORDS SUMMARY | 2019-10-06 18:57 | XMS REPORT ---
Author Author [facility] Address [address] [place] [address] Care Team Providers Care Ortho Tech Name Role Phone DANIEL NARANJO Unavailable PROBLEMS Type Condition ICD9-CM Code VVX86-JR Code Onset Dates Condition S tatus SNOMED Code Problem Constipation K59.00 Active 6234363 8 Problem Seasonal allergic rhinitis due to pollen J30.1 Active 07168561 Problem Acute non intractable tension-type headache G44.20 9 Active 195006616 Problem Mentally challenged F79 Active 25829955 Problem UTI (urinary tract infection) N39.0 Active 13722326 Problem Seasonal allergic rhinitis, unspecified allergic rhinitis trigger J30.2 Active 759906660 Problem Tension headache G44.209 Active 398 128414 ALLERGIES Substance Reaction Event Type Date Status Carafate Swelling/Itching Drug Allergy Jun, Active ENCOUNTERS Encounter Location Date Diagnosis [facility] [address] [id number] [address] [place] [address] [id number] Sep, [facility] [address] [id number] [address] [place] [address] [id number] Sep, [facility] [id number] [address] [id number] August, Encounter for dental examina tion Z01.20 [facility] [address] [facility] [id number] [address] [place] [address] August, Seasonal allergic rhinitis, unspecified trigger J30.2 [facility] [address] [facility] [id number] [address] [place] [phone] Jul, Frequent headaches R51 and F amily history of diabetes mellitus Z83.3 [facility] [address] [place] [address] [id number] [address] [place] [address] Jul, Dysfunction of left eustachi an tube H69.82 [facility] [address] [facility] [id number] [address] [place] [address] [id number] Jun, Encounter for dental examina tion Z01.20 [facility] [address] [address] Jun, Left ear pain H92.02 and Sea inés allergic rhinitis due to pollen J30.1 [facility] [address] [address] Jun, Increased nausea and vomitin g R11.2 [facility] [address] [place] [address] Jun, Viral gastroenteritis A08.4 [facility] [address] [place] [address] Apr, Fever R50.9 and Strep pharyn gitis J02.0 [facility] [address] [place] [phone] Jan, Allergic contact dermatitis, unspecified trigger L23.9 [facility] [address] [place] [address] Dec, Acute left ankle pain M25.57 2 [facility] [address] [place] [address] Nov, Seasonal allergic rhinitis, unspecified allergic rhinitis trigger J30.2 [facility] [address] [place] [address] Sep, Acute non intractable tensio n-type headache G44.209 [facility] [address] [place] [address] Sep, Gastroenteritis and colitis, viral A08.4 [facility] [address] [place] [id number] Jul, Seasonal allergic rhinitis, unspecified allergic rhinitis trigger J30.2 and Acute middle ear effusion, bilateral H65.193 [facility] [address] [id number] [address] [place] [phone] Jun, Acute suppurative otitis med ia of right ear without spontaneous rupture of tympanic membrane, recurrence not specified H66.001 [place] [address] [place] [id number] [address] [place] [phone] 14 May, 2016 Mentally challenged F79 and Poor dentition K08.9 [place] [address] [place] [address] [id number] [address] [place] [address] Apr, Ankle strain, right, subsequ ent encounter S96.911D ; Tension headache G44.209 ; Wellness examination Z00.00 and Poor dentition K08.9 [facility] [place] [address] [address] [id number] [address] [place] [address] Apr, Sprain of right knee, unspec ified ligament, initial encounter S83.91XA ; Sprain of right ankle, unspecified ligament, initial encounter S93.401A and Contusion of right elbow, initial encounter S50.01XA [facility] [address] [address] Apr, Headache above the eye regio n R51 [facility] [place] [address] [address] [id number] [address] [place] [address] Jul, Gastroenteritis K52.9 [place] [address] [place] [id number] Apr, [place] [address] [place] [id number] [address] [place] [address] Apr, UTI (urinary tract infection ) N39.0 and Constipation K59.00 [place] [address] [place] [id number] [address] [place] [id number] 06 Apr, 2015 Epigastric pain R10.13 and E pigastric abdominal pain R10.13 [place] [address] [id number] [address] [place] [address] Feb, Sore throat J02.9 [facility] [address] [id number] [address] [place] [address], [place] [id number] Sep, [facility] [address] [id number] [address] [place] [address], [place] [id number] Sep, Tick bite 919.4 [facility] [address] [id number] [address] [place] [address], [place] [id number] Jul, [facility] [place] [address] [id number] [address] [place] [address], [place] [id number] Jul, [facility] [address] [id number] [address] [place] [address], [place] [id number] Jun, [facility] [place] [address] [id number] [address] [place] [address], [place] [id number] Jun, [facility] [address] [id number] [address] [place] [id number] Apr, [facility] [address] [id number] [address] [place] [address], [place] [id number] Apr, [facility] [address] [id number] [address] [place] [phone] Mar, [facility] [address] [id number] [address] [place] [phone] Mar, [facility] [address] [id number] [address] [place] [phone] Jul, [facility] [address] [id number] [address] [place] [address], [place] [id number] Jul, [facility] [address] [id number] [address] [place] [address], [place] [id number] Jul, [facility] [place] [address] [id number] [address] [place] [phone] 10 Jul, 2013 [facility] [address] [id number] [address] [place] [phone] Jul, [facility] [address] [id number] [address] [place] [address], [place] [id number] Mar, [facility] [address] [id number] [address] [place] [address], [place] [id number] Mar, [facility] [address] [id number] [address] [place] [address], [place] [id number] August, [facility] [address] [id number] [address] [place] [address], [place] [id number] August, [facility] [address] [id number] [address] [place] [address], [place] [id number] May, [facility] [address] [id number] [address] [place] [address], [place] [id number] Apr, [facility] [address] [id number] [address] [place] [address], [place] [id number] Feb, [facility] [address] [id number] [address] [place] [address], [place] [id number] Feb, [facility] [address] [id number] [address] [place] [address], [place] [id number] Jan, [facility] [address] [id number] [address] [place] [address], [place] [id number] Jan, [facility] [address] [id number] [address] [place] [address], [place] [id number] Dec, [facility] [address] [id number] [address] [place] [address], [place] [id number] Dec, [facility] [address] [id number] [address] [place] [address], [place] [id number] Nov, [facility] [address] [id number] [address] [place] [address], [place] [id number] Nov, [facility] [address] [id number] [address] [place] [address], [place] [id number] Oct, [facility] [address] [id number] [address] [place] [phone] May, [facility] [address] [id number] [address] [place] [phone] May, [facility] [address] [id number] [address] [place] [phone] May, [facility] [address] [id number] [address] [place] [id number] Feb, [facility] [address] [id number] [address] [place] [phone] Jun, [facility] [address] [id number] [address] [place] [phone] Feb, [facility] [address] [id number] [address] [place] [id number] Jan, [facility] [address] [facility] [id number] [address] [place] [phone] August, [facility] [address] [facility] [id number] [address] [place] [id number] Jul, IMMUNIZATIONS No Known Immunizations SOCIAL HISTORY Never Assessed REASON FOR VISIT Nausea/vomiting started about 5 days ago [employer] PLAN OF CARE Activity Details Follow Up prn Reason: VITAL SIGNS Height 60 in 2017-06-19 Weight 157.8 lbs 2017-06-19 Temperature 97.7 degrees Fahrenheit 2017-06-19 Heart Rate 94 bpm 2017-06-19 Respiratory Rate 18 2017-06-19 BMI 30.81 kg/m2 2017-06-19 Blood pressure systolic 120 mmHg 2017-06-19 Blood pressure diastolic 72 mmHg 2017-06-19 MEDICATIONS Medication Instructions Dosage Frequency Start Date End Date Duration S tatus Acetaminophen-Caffeine 500-65 MG Orally 2 times a day PRN headac hes 2 capsules Apr, Active Fluticasone Propionate 50 MCG/ACT Nasally Once a day 1 spray in each nostril 24h Jul, 30 day(s) Not-Taking Triamcinolone Acetonide 0.1 % Externally Twice a day 1 appli cation to affected area 12h Jan, 5 days Not-Taking Tylenol 325 MG Orally every 6 hrs 2 ablet as needed 6h Active Pepcid 20 MG Orally Once a day 1 tablet at bedtime 24h Jun, 30 day(s) Active Claritin 10 MG Orally Once a day 1 tablet 24h Not-Taking Zofran ODT 4 MG Orally every 8 hours as directed 8h Jun, 5 days Active Promethazine HCl 12.5 MG Orally every 6 hrs 1 tablet as needed 6h Jun, Jun, 5 days Active RESULTS Name Result Date Reference Range TEST, URINE (IN HOUSE) 2017-06-19 RESULTS negative Lot # [id number] Control + Exp date 2018-09-07 UA LONG DIP (IN HOUSE) 2017-06-19 Lot # [id number] Exp date 2018-02-07 Clarity clear Color yellow Odor none GLU negative AILYN negative KET negative SG 1.025 BLO negative pH 6.5 Protein negative URO 1.0 NIT negative ROXANNA negative Lot # [id number] Exp date July 2017 PROCEDURES Procedure Date Ordered Result Body Site URINE TEST June 19, 2017 URINALYSIS, AUTO, W/O SCOPE June 19, 2017 INSTRUCTIONS MEDICATIONS ADMINISTERED No Known Medications
--- OUTSIDE RECORDS SUMMARY | 2019-10-06 18:57 | XMS REPORT ---
Author Author [facility] Address [address] [place] [address] Care Team Providers Care Building Drafter Name Role Phone DANIEL NARANJO Unavailable PROBLEMS Type Condition ICD9-CM Code MLD60-MD Code Onset Dates Condition S tatus SNOMED Code Problem Constipation K59.00 Active 1135792 8 Problem Seasonal allergic rhinitis due to pollen J30.1 Active 08583862 Problem Acute non intractable tension-type headache G44.20 9 Active 844399399 Problem Mentally challenged F79 Active 28104399 Problem UTI (urinary tract infection) N39.0 Active 55648991 Problem Seasonal allergic rhinitis, unspecified allergic rhinitis trigger J30.2 Active 700355625 Problem Tension headache G44.209 Active 398 088421 ALLERGIES Substance Reaction Event Type Date Status Carafate Swelling/Itching Drug Allergy Jun, Active ENCOUNTERS Encounter Location Date Diagnosis [facility] [address] [id number] [address] [place] [address] [id number] Sep, [facility] [address] [id number] [address] [place] [address] [id number] Sep, [facility] [id number] [place] [address] [id number] August, Encounter for dental examina tion Z01.20 [facility] [address] [facility] [id number] [address] [place] [phone] August, Seasonal allergic rhinitis, unspecified trigger J30.2 [facility] [address] [facility] [id number] [address] [place] [address] Jul, Frequent headaches R51 and F amily history of diabetes mellitus Z83.3 [facility] [address] [place] [id number] [address] [place] [phone] Jul, Dysfunction of left eustachi an tube H69.82 [facility] [address] [facility] [id number] [address] [place] [address] [id number] Jun, Encounter for dental examina tion Z01.20 [facility] [address] [address] Jun, Left ear pain H92.02 and Sea inés allergic rhinitis due to pollen J30.1 [facility] [address] [address] Jun, Increased nausea and vomitin g R11.2 [facility] [address] [place] [phone] Jun, Viral gastroenteritis A08.4 [facility] [address] [place] [address] Apr, Fever R50.9 and Strep pharyn gitis J02.0 [facility] [address] [place] [address] Jan, Allergic contact dermatitis, unspecified trigger L23.9 [facility] [address] [place] [address] Dec, Acute left ankle pain M25.57 2 [facility] [address] [place] [address] Nov, Seasonal allergic rhinitis, unspecified allergic rhinitis trigger J30.2 [facility] [address] [place] [address] Sep, Acute non intractable tensio n-type headache G44.209 [facility] [address] [place] [address] Sep, Gastroenteritis and colitis, viral A08.4 [facility] [address] [place] [address] Jul, Seasonal allergic rhinitis, unspecified allergic rhinitis trigger J30.2 and Acute middle ear effusion, bilateral H65.193 [facility] [address] [place] [address] [id number] [address] [place] [phone] Jun, Acute suppurative otitis med ia of right ear without spontaneous rupture of tympanic membrane, recurrence not specified H66.001 [place] [address] [place] [id number] [address] [place] [address] 14 May, 2016 Mentally challenged F79 and Poor dentition K08.9 [place] [address] [place] [id number] [address] [place] [address] Apr, Ankle strain, right, subsequ ent encounter S96.911D ; Tension headache G44.209 ; Wellness examination Z00.00 and Poor dentition K08.9 [facility] [place] [address] [place] [id number] [address] [place] [address] Apr, Sprain of right knee, unspec ified ligament, initial encounter S83.91XA ; Sprain of right ankle, unspecified ligament, initial encounter S93.401A and Contusion of right elbow, initial encounter S50.01XA [facility] [address] [address] Apr, Headache above the eye regio n R51 [facility] [place] [address] [place] [id number] [address] [place] [address] Jul, Gastroenteritis K52.9 [place] [address] [place] [address] Apr, [place] [address] [place] [id number] [address] [place] [address] Apr, UTI (urinary tract infection ) N39.0 and Constipation K59.00 [place] [address] [place] [id number] [address] [place] [address] 06 Apr, 2015 Epigastric pain R10.13 and E pigastric abdominal pain R10.13 [place] [address] [id number] [address] [place] [address] Feb, Sore throat J02.9 [facility] [address] [id number] [address] [place] [address], [place] [address] Sep, [facility] [address] [id number] [address] [place] [address], [place] [address] Sep, Tick bite 919.4 [facility] [address] [id number] [address] [place] [address], [place] [address] Jul, [facility] [address] [id number] [address] [place] [address], [place] [address] Jul, [facility] [address] [id number] [address] [place] [address], [place] [address] Jun, [facility] [address] [id number] [address] [place] [address], [place] [address] Jun, [facility] [address] [id number] [address] [place] [phone] Apr, [facility] [address] [id number] [address] [place] [address], [place] [address] Apr, [facility] [address] [id number] [address] [place] [address] Mar, [facility] [address] [id number] [address] [place] [address] Mar, [facility] [address] [id number] [address] [place] [phone] Jul, [facility] [address] [id number] [address] [place] [address], [place] [address] Jul, [facility] [address] [id number] [address] [place] [address], [place] [address] Jul, [facility] [address] [id number] [address] [place] [phone] 10 Jul, 2013 [facility] [address] [id number] [address] [place] [phone] Jul, [facility] [address] [id number] [address] [place] [address], [place] [address] Mar, [facility] [address] [id number] [address] [place] [address], [place] [address] Mar, [facility] [address] [id number] [address] [place] [address], [place] [address] August, [facility] [address] [id number] [address] [place] [address], [place] [address] August, [facility] [address] [id number] [address] [place] [address], [place] [address] May, [facility] [address] [id number] [address] [place] [address], [place] [address] Apr, [facility] [address] [id number] [address] [place] [address], [place] [address] Feb, [facility] [address] [id number] [address] [place] [address], [place] [address] Feb, [facility] [address] [id number] [address] [place] [address], [place] [address] Jan, [facility] [address] [id number] [address] [place] [address], [place] [address] Jan, [facility] [address] [id number] [address] [place] [address], [place] [address] Dec, [facility] [address] [id number] [address] [place] [address], [place] [address] Dec, [facility] [address] [id number] [address] [place] [address], [place] [address] Nov, [facility] [address] [id number] [address] [place] [address], [place] [address] Nov, [facility] [address] [id number] [address] [place] [address], [place] [address] Oct, [facility] [address] [id number] [address] [place] [address] May, [facility] [address] [id number] [address] [place] [address] May, [facility] [address] [id number] [address] [place] [address] May, [facility] [address] [id number] [address] [place] [id number] Feb, [facility] [address] [id number] [address] [place] [phone] Jun, [facility] [address] [id number] [address] [place] [phone] Feb, [facility] [address] [id number] [address] [place] [phone] Jan, [facility] [address] [facility] [id number] [address] [place] [phone] August, [facility] [address] [id number] [address] [place] [phone] Jul, IMMUNIZATIONS No Known Immunizations SOCIAL HISTORY Never Assessed REASON FOR VISIT stomach ache Pt reports nausea for 5 days, denies urinary problems or diarrhea, denies constipation ROSS Leahy PLAN OF CARE Activity Details Follow Up prn Reason: VITAL SIGNS Height 60 in 2017-06-15 Weight 156.6 lbs 2017-06-15 Temperature 98.7 degrees Fahrenheit 2017-06-15 Heart Rate 90 bpm 2017-06-15 Respiratory Rate 18 2017-06-15 BMI 30.58 kg/m2 2017-06-15 Blood pressure systolic 100 mmHg 2017-06-15 Blood pressure diastolic 68 mmHg 2017-06-15 MEDICATIONS Medication Instructions Dosage Frequency Start Date End Date Duration S tatus Tylenol 325 MG Orally every 6 hrs 2 ablet as needed 6h Not-Taking Zofran ODT 4 MG Orally every 8 hours as directed 8h Jun, 5 days Active Claritin 10 MG Orally Once a day 1 tablet 24h Active Fluticasone Propionate 50 MCG/ACT Nasally Once a day 1 spray in each nostril 24h Jul, 30 day(s) Active Triamcinolone Acetonide 0.1 % Externally Twice a day 1 appli cation to affected area 12h Jan, 5 days Not-Taking Acetaminophen-Caffeine 500-65 MG Orally 2 times a day PRN headac hes 2 capsules Apr, Not-Taking RESULTS No Results PROCEDURES No Known procedures INSTRUCTIONS MEDICATIONS ADMINISTERED No Known Medications
[2019-10-06 20:00] VITALS: BP 114/67
[2019-10-07] MEDS: LACTATED RINGERS 1,000 ML IV SCH (00:55)
--- NOTE | 2019-10-07 07:15 | NUR ---
Dr Narvaez to see patient and review plan of care.
--- NOTE | 2019-10-07 07:33 | NUR ---
US tech at bedside.
--- NOTE | 2019-10-07 08:44 | Diagnostic Imaging Report ---
INDICATION: Contractions. TECHNIQUE: Multiple real-time grayscale images were obtained over the gravid uterus. COMPARISON: None FINDINGS: There is a single live fetus in a breech presentation. heart rate was recorded at 133 bpm. Placenta is posterior. No previa is identified. The amniotic fluid index is 18.2 cm. Cervical length is 4.5 cm. Biometrical measurements are as follows: Biparietal 6.53 cm, age 26 weeks 3 days. Head circumference 24.60 cm, age 26 weeks 5 days. Abdominal circumference 21.12 cm, age 25 weeks 5 days. Femur length 5.32 cm, age 28 weeks 2 days. Sonographic estimate age: 26 weeks 6 days. Sonographic estimated date of delivery: 01/07/2020. Estimated Weight: 974 gm (+/- 142 gm). LMP percentile: 23%. heart rate: 133 beats per minute. number: 1 of 1. IMPRESSION: Single live IUP 26 weeks 6 days gestational age. Estimated date of confinement sonographically is 01/07/2020. Dictated by: Dictated on workstation # [id number]
--- NOTE | 2019-10-07 09:05 | NUR ---
Dr Narvaez called and rn left message to discuss sono result with
--- NOTE | 2019-10-07 09:35 | NUR ---
Dr Solange saxena's pt for discharge after rn reviewed sono results
[2019-10-07 09:46] VITALS: BP 116/62
[2019-10-07 09:50] VITALS: BP 116/62
--- NOTE | 2019-10-07 09:50 | NUR ---
Discharge instructions explained, signed and copy to patient. pt verbalized understanding of instructions and denied questions. monitors off and pt up to get dressed.
--- NOTE | 2019-10-07 09:53 | Short Stay Summary ---
HPI Attending Physician Deandre Huddleston MD PCP Jose Narvaez MD Consult Date of Admission Oct 06, 2019 at 17:45 Home Medications Home Medications Reviewed patient Home Medication Reconciliation performed by pharmacy medication reconciliations engine test cell technician and/or nursing. Patients Allergies have been reviewed. Allergies Coded Allergies: sucralfate (Unverified Allergy, Unknown, 09/30/17) WLI-Arcnhe-Ljafwa Hx Patient Social History Alcohol Use: Past History Recreational Drug Use: No Smoking Status: Never a Smoker 2nd Hand Smoke Exposure: No Recent Foreign Travel: No Contact w/other who traveled: No Immunizations Up To Date Tetanus Booster (TDap): Less than 5yrs Family Medical History Significant Family History: No Pertinent Family Hx Physical Exam-([facility]) Physical Exam Vital Signs VS - Last 72 Hours, by Label 10/06/19 10/06/19 10/06/19 10/06/19 15:58 16:06 16:10 16:22 Temp 36.4 36.3 36.3 36.3 Pulse 107 107 107 107 Resp 18 18 18 18 B/P (MAP) 119/75 (90) Pulse Ox 96 96 96 96 O2 Delivery Room Air Room Air Room Air Room Air 10/06/19 10/06/19 18:44 20:00 Temp 37.0 36.7 Pulse 105 103 Resp 18 18 B/P (MAP) 123/72 (89) 114/67 (83) O2 Delivery Room Air Capillary Refill : Less Than 3 Seconds DEANDRE HUDDLESTON MD Oct 07, 2019 09:53
--- NOTE | 2019-10-07 10:00 | NUR ---
Pt discharged to home. ambulates self downstairs accompanied by mother to private vehicle with belongings in hand.
== END 2019-10-07 10:00 | disposition home or self-care (01) ==
LOC: LDRP 15:48 → WSo 15:48 → LDRP 17:45
PROVIDERS: ADMIT Family Medicine; ATTEND Family Medicine
DX: O47.02 False labor before 37 completed weeks of gestation, second trimester (principal); Z3A.27 27 weeks gestation of pregnancy
CPT/HCPCS: 36415; 76805; 80306; 81000; 85025; 87088; 87210; 96360; 96361; 99211; G0378

== ENCOUNTER 2019-11-17 21:20 | Outpatient (CLI) | payer SELFPAY ==
[~2019-11-17] VITALS: Ht 157.5 cm; Wt 73.5 kg
[~2019-11-17 21:20] MED LIST changes: +PREN1TAB79 PO
--- NOTE | 2019-11-17 21:27 | NUR ---
LAZARO MARCUS [age]presented to unit from ED, accompanied by mother , with c/o CONTRACTIONS. LAZARO MARCUS weighed, gowned, voided, and to bed. EFHM and TOCO applied, VS taken. LAZARO MARCUS oriented to bed controls, call light, TV, heat, and A/C controls. Pt. confirms movement and denies LOF.
[2019-11-17] MEDS ORDERED: ONDA4TAB11 PO (21:47)
[2019-11-17] MEDS ORDERED: ACET-2267 PO (21:48)
[2019-11-17 21:49] VITALS: BP 106/65
[2019-11-17 21:52] VITALS: BP 106/65
--- NOTE | 2019-11-17 22:08 | NUR ---
Dr. Martinez called with report of pt. Informed of pt complaint of pelvic pressure and contractions. Informed that pt had one contraction 25 minutes ago, but has not had one since. Informed of SVE, vitals, and strip. Urine results reviewed. orders that pt can be discharged, but to encourage pelvic rest and fluids.
--- NOTE | 2019-11-17 22:25 | NUR ---
Discharge instructions reviewed with patient. Pt. walks out with mom to personal vehicle. No s/s of distress.
--- NOTE | 2019-11-18 08:28 | Physician Query-Final Dx ---
Clinic Account Progress/Dx Physician Query: Please give diagnosis Please include # weeks gestation Date of Service Nov 17, 2019 at 21:20 AMOS MEDINA Nov 18, 2019 08:28
== END 2019-11-17 22:25 ==
LOC: WSo 21:20 → LDRP 21:20 → WSo 22:25
PROVIDERS: ATTEND Family Medicine
DX: O26.899 Other specified pregnancy related conditions, unspecified trimester (principal); R10.2 Pelvic and perineal pain; Z3A.00 Weeks of gestation of pregnancy not specified
CPT/HCPCS: 99213

== ENCOUNTER 2019-11-28 19:00 | Outpatient (CLI) | payer MEDICAID ==
[~2019-11-28] VITALS: Ht 157.5 cm; Wt 73.8 kg
[~2019-11-28 19:00] MED LIST changes: +ACET-2267 PO; +ONDA4TAB11 PO
--- NOTE | 2019-11-28 19:06 | NUR ---
LAZARO MARCUS presented to unit via ambulatory from ED, accompanied by mother, with c/o CONTRACTIONS. LAZARO MARCUS weighed, gowned, voided, and to bed. EFHM and TOCO applied, VS taken. LAZARO MARCUS oriented to bed controls, call light, TV, heat, and A/C controls.
--- NOTE | 2019-11-28 19:35 | NUR ---
SVE per this RN, cervix closed, 60% effaced, no leaking of fluid or bloody show.
--- NOTE | 2019-11-28 20:04 | NUR ---
Dr Huddleston visualizing FHR and contraction monitor strip. Notified of complaints on arrival. UA results and vital signs. Patient ok for discharge home per Dr Huddleston.
--- NOTE | 2019-11-28 20:20 | NUR ---
Patient discharge instructions given to patient and mother. Both verbalize understanding. Ambulating off of unit to private vehicle.
[2019-11-28 20:25] VITALS: BP 129/77
--- NOTE | 2019-11-29 08:20 | Physician Query-Final Dx ---
AMOS MEDINA 11/29/19 0820: Clinic Account Progress/Dx Physician Query: Please give diagnosis Please include # weeks gestation Date of Service Nov 28, 2019 at 19:00 DEANDRE HAWLEY MD 11/29/19 1524: Clinic Account Progress/Dx DIAGNOSIS: Diagnosis 34 weeks gestation Abdominal pain in without contractions AMOS MEDINA Nov 29, 2019 08:20 DEANDRE HAWLEY MD Nov 29, 2019 15:24
== END 2019-11-28 20:20 | disposition home or self-care (01) ==
LOC: WSo 19:00 → LDRP 19:00 → WSo 20:20
PROVIDERS: ATTEND Family Medicine
DX: O26.893 Other specified pregnancy related conditions, third trimester (principal); R10.9 Unspecified abdominal pain; Z3A.34 34 weeks gestation of pregnancy

== ENCOUNTER 2019-12-03 21:31 | Outpatient (CLI) | payer MEDICAID ==
[~2019-12-03] VITALS: Ht 157.5 cm; Wt 71.3 kg
--- NOTE | 2019-12-03 21:35 | NUR ---
LAZARO MARCUS presented to unit via AMBULATORY from ED, accompanied by ADULT FEMALE, with c/o DECREASED MOVEMENT. LAZARO MARCUS weighed, gowned, voided, and to bed. EFHM and TOCO applied, VS taken. LAZARO MARCUS oriented to bed controls, call light, TV, heat, and A/C controls. ABOVE AND FURTHER ASSESSMENTS CARRIED OUT PER DAVIDSON GONZALEZ.
[2019-12-03] MEDS ORDERED: LORA5TAB9 PO (21:39)
[2019-12-03 21:45] VITALS: BP 126/78
[2019-12-03] MEDS ORDERED: FAMO1TAB3 PO (22:11)
[2019-12-03 22:26] LABS: BILIRUBIN,URINE NEGATIVE (NEGATIVE); CLARITY,URINE SL CLOUDY; GLUCOSE, URINE (UA) NEGATIVE (NEGATIVE); KETONES,URINE 2+ (NEGATIVE); LEUKOCYTE ESTERASE ,URINE 1+ (NEGATIVE); NITRITE,URINE NEGATIVE (NEGATIVE); PROTEIN,URINE TRACE (NEGATIVE)
[2019-12-03 22:33] LABS: COLOR,URINE DARK YELLOW
[2019-12-03 22:35] LABS: BACTERIA,URINE TRACE /HPF; CALCIUM OXALATE CRYSTALS,UR MODERATE /LPF
--- NOTE | 2019-12-03 22:38 | NUR ---
Dr. Narvaez notified of patient arrival, evaluation, and UA results. Orders received for discharge and to instruct the patient to drink plenty of water.
--- NOTE | 2019-12-03 23:00 | NUR ---
Written discharge instructions reviewed with patient. Discharge instructions signed and copy given. Patient ambulated off unit. Condition stable. No signs or symptoms of distress.
--- NOTE | 2019-12-04 08:15 | Physician Query-Final Dx ---
Clinic Account Progress/Dx Physician Query: Please give diagnosis Please give # weeks gestation Date of Service Dec 03, 2019 at 21:31 AMOS MEDINA Dec 04, 2019 08:15
== END 2019-12-03 23:00 | disposition home or self-care (01) ==
LOC: WSo 21:31 → LDRP 21:31 → WSo 23:00
PROVIDERS: ATTEND Family Medicine
DX: O36.8191 Decreased fetal movements, unspecified trimester, fetus 1 (principal); Z3A.00 Weeks of gestation of pregnancy not specified
CPT/HCPCS: 81000; 99212

== ENCOUNTER 2019-12-29 17:39 | Outpatient (CLI) | payer MEDICAID ==
[~2019-12-29] VITALS: Ht 157 cm; Wt 71.7 kg
[~2019-12-29 17:39] MED LIST changes: +FAMO1TAB3 PO; +LORA5TAB9 PO
--- NOTE | 2019-12-29 17:45 | NUR ---
LAZARO MARCUS presented to unit ambulatory from home, accompanied by mother , with c/o CRAMPING/PRESSURE. LAZARO MARCUS weighed, gowned, voided, and to bed. EFHM and TOCO applied, VS taken. LAZARO MARCUS oriented to bed controls, call light, TV, heat, and A/C controls.
--- NOTE | 2019-12-29 18:00 | NUR ---
Patient states has had pain in lower abdomen for last couple days, since monday. Sometimes doubling her over. Also complains of vaginal pain. States pain today is not any worse than last couple days. Complains of back pain, lower back and being hard to walk. Denies leaking fluid or bleeding. Was checked in the office on Monday by Dr. Narvaez, was 1 1/2 cm, 50% effaced
--- NOTE | 2019-12-29 18:05 | NUR ---
SVE per Nicole Houston RN Cervix 2cm dilated, high, engaged, 50% effaced.
[2019-12-29 18:25] VITALS: BP 126/79
--- NOTE | 2019-12-29 18:25 | NUR ---
Dr. Narvaez called and notified of patient admit and status. To observe patient for additional hour, then recheck cervix. If no change, may discharge home. Patient informed of plan of care.
[2019-12-29 18:28] LABS: CLARITY,URINE CLEAR; COLOR,URINE YELLOW
[2019-12-29 18:29] LABS: BILIRUBIN,URINE NEGATIVE (NEGATIVE); GLUCOSE, URINE (UA) NEGATIVE (NEGATIVE); KETONES,URINE NEGATIVE (NEGATIVE); LEUKOCYTE ESTERASE ,URINE 1+ (NEGATIVE); NITRITE,URINE NEGATIVE (NEGATIVE); PH,URINE 6.5 (5-9); PROTEIN,URINE NEGATIVE (NEGATIVE)
[2019-12-29 18:32] LABS: BACTERIA,URINE NEGATIVE /HPF
[2019-12-29 18:36] VITALS: BP 126/79
--- NOTE | 2019-12-29 19:49 | NUR ---
D/C instructions given & explained, pt. verbalized understanding & signed, copy of D/C to pt. Pt. left [facility] ambulatory escorted by mother, to home via private vehicle.
--- NOTE | 2019-12-30 09:04 | Physician Query-Final Dx ---
Clinic Account Progress/Dx Physician Query: Please give diagnosis Please give # weeks gestation Date of Service Dec 29, 2019 at 17:39 AMOS MEDINA Dec 30, 2019 09:04
== END 2019-12-29 19:49 | disposition home or self-care (01) ==
LOC: WSo 17:39 → LDRP 17:39 → WSo 19:49
PROVIDERS: ATTEND Family Medicine
DX: O26.893 Other specified pregnancy related conditions, third trimester (principal); R10.30 Lower abdominal pain, unspecified; Z3A.39 39 weeks gestation of pregnancy
CPT/HCPCS: 81000; 87088; 99213

== ENCOUNTER 2020-01-01 19:07 | Inpatient (IN) | payer MEDICAID ==
[~2020-01-01] VITALS: Ht 157 cm; Wt 71.3 kg
[2020-01-01] VITALS (8 sets, daily range): BP systolic 112–144; BP diastolic 63–82
[2020-01-01] MEDS ORDERED: D5 LR IV SOLUTION 1,000 ML IV ONE (19:30)
[2020-01-01] MEDS ORDERED: LACTATED RINGERS 1,000 ML IV SCH (20:04)
[2020-01-01] MEDS ORDERED: MISOPROSTOL 100 MCG (CYTOTEC) TAB PO NR (20:15)
[2020-01-01] MEDS: D5 LR IV SOLUTION 1,000 ML IV SCH (20:25)
[2020-01-01 20:32] LABS: BASOPHILS % (AUTO) 0 % (0-10); EOSINOPHILS % (AUTO) 0 % (0-10); HEMATOCRIT 32 % (35-52); LYMPHOCYTES # (AUTO) 1.6 10^3/uL (1.0-4.0); LYMPHOCYTES % (AUTO) 24 % (12-44); MEAN CORPUSCULAR HEMOGLOBIN 31 pg (25-34); MEAN CORPUSCULAR HGB CONC 34 g/dL (32-36); MEAN CORPUSCULAR VOLUME 91 fL (80-99); MEAN PLATELET VOLUME 12.1 fL (9.0-12.2); MONOCYTES # (AUTO) 0.9 10^3/uL (0.0-1.0); MONOCYTES % (AUTO) 13 % (0-12); NEUTROPHILS # (AUTO) 4.3 10^3/uL (1.8-7.8); NEUTROPHILS % (AUTO) 63 % (42-75); PLATELET COUNT 216 10^3/uL (130-400); WHITE BLOOD COUNT 6.9 10^3/uL (4.3-11.0)
[2020-01-01 20:33] LABS: BILIRUBIN,URINE NEGATIVE (NEGATIVE); CLARITY,URINE CLEAR; COLOR,URINE YELLOW; GLUCOSE, URINE (UA) NEGATIVE (NEGATIVE); KETONES,URINE TRACE (NEGATIVE); LEUKOCYTE ESTERASE ,URINE 1+ (NEGATIVE); NITRITE,URINE NEGATIVE (NEGATIVE); PH,URINE 6.5 (5-9); PROTEIN,URINE TRACE (NEGATIVE)
[2020-01-01 20:39] LABS: BACTERIA,URINE TRACE /HPF; CALCIUM OXALATE CRYSTALS,UR MODERATE /LPF; WBC,URINE RARE /HPF
[2020-01-01] MEDS ORDERED: ZOLPIDEM 5 MG (AMBIEN) TAB ONE (22:32)
[2020-01-01] MEDS ORDERED: ZOLPIDEM 5 MG (AMBIEN) TAB PO ONE (22:45)
[2020-01-01] MEDS ORDERED: BUTORPHANOL INJ 2 MG/ML (STADOL) VIAL ONE (23:43)
[2020-01-01] MEDS: BUTORPHANOL INJ 2 MG/ML (STADOL) VIAL IV PRN (23:51)
[2020-01-02] VITALS (34 sets, daily range): BP systolic 93–143; BP diastolic 55–104
[2020-01-02] MEDS ORDERED: MISOPROSTOL 100 MCG (CYTOTEC) TAB PO SCH (00:15)
[2020-01-02] MEDS: D5 LR IV SOLUTION 1,000 ML IV SCH (04:25)
[2020-01-02] MEDS: BUTORPHANOL INJ 2 MG/ML (STADOL) VIAL IV PRN ×2 (04:37→07:06)
[2020-01-02] MEDS ORDERED: OXYTOCIN PRE-MIX DRIP 500 ML IV ONE (06:27)
[2020-01-02] MEDS ORDERED: OXYTOCIN PRE-MIX DRIP 500 ML IV SCH ×2 (06:33→09:27)
--- NOTE | 2020-01-02 06:36 | History & Physical-OB ---
OB - Chief Complaint & HPI Date/Time Date of Admission: Date of Admission: Jan 01, 2020 at 19:09 Date seen by a Provider: Jan 02, 2020 Time Seen by a Provider: 06:30 Chief Complaint/History OB-Reason for Admission/Chief: Induction of Labor Hx : 1 Hx Para: 0 Expected Date of Delivery: Jan 05, 2020 Gestational Age in Weeks: 39 Gestational Age in Days: 3 Indication for induction: maternal distance Admission Nurse Assessment Rev: Yes History of Labs GBS negative Allergies and Home Medications Allergies Coded Allergies: sucralfate (Unverified Allergy, Unknown, 12/03/19) Home Medications Loratadine 5 Mg Tab.rapdis, 5 MG PO PRN, (Reported) Ondansetron 4 Mg Tab.rapdis, 4 MG PO PRN, (Reported) Vit W-Ca,Fe,FA(<1 mg) 1 Each Tablet, 1 EACH PO DAILY, (Reported) Patient Home Medication List Home Medication List Reviewed: Yes OB - History Hx of Present Care: Yes Ultrasounds: Normal mid trimester US Obstetrical Complications: None Medical Complications: None Delivery History Hx Blood Disorders: No Adverse Rxn to Tranfusion: No Patient Past Medical History no chronic medical problems Social History/Family History Recent Infectious Disease Expo: No Alcohol Use: Denies Use Recreational Drug Use: No 2nd Hand Smoke Exposure: No Immunizations Tetanus Booster (TDap): Less than 5yrs OB - Admission Exam Physical Exam Vitals: Vital Signs 01/01/20 01/02/20 01/02/20 21:36 03:30 05:00 Temp 36.5 Pulse 88 Resp 18 B/P (MAP) 124/73 (90) Pulse Ox 98 O2 Delivery Room Air HEENT: Moist Membranes Heart: Rhythm Normal Abdomen: Gravid Extremities: Normal Reflexes: Normal Cervical Dilatation: 2cm Effacement: 50% Station: -3 Membranes: Intact Heart Rate: 120's Accelerations: Accelerations Present Decelerations: No Decelerations Short Term Variability: Present Outbound Supervisor Variability: Average (6-25) Contractions on Admission: 6-10 Minutes Apart Intensity: Mild Bey Scoring Tool (Modified) Dilation (cm): 1-2cm (1) Effacement (%): 31-51% (1) Descent/Station: -3 (0) Cervix Consistency: Medium(1) Cervix Position: Middle/Mid-Position (1) Bey Score: 4 Labs Laboratory Tests Test 01/01/20 20:00 Range/Units White Blood Count 6.9 4.3-11.0 10^3/uL Red Blood Count 3.55 L 3.80-5.11 10^6/uL Hemoglobin 11.0 L 11.5-16.0 g/dL Hematocrit 32 L 35-52 % Mean Corpuscular Volume 91 80-99 fL Mean Corpuscular Hemoglobin 31 25-34 pg Mean Corpuscular Hemoglobin Concent 34 32-36 g/dL Red Cell Distribution Width 13.4 10.0-14.5 % Platelet Count 216 130-400 10^3/uL Mean Platelet Volume 12.1 9.0-12.2 fL Immature Granulocyte % (Auto) 0 % Neutrophils (%) (Auto) 63 42-75 % Lymphocytes (%) (Auto) 24 12-44 % Monocytes (%) (Auto) 13 H 0-12 % Eosinophils (%) (Auto) 0 0-10 % Basophils (%) (Auto) 0 0-10 % Neutrophils # (Auto) 4.3 1.8-7.8 10^3/uL Lymphocytes # (Auto) 1.6 1.0-4.0 10^3/uL Monocytes # (Auto) 0.9 0.0-1.0 10^3/uL Eosinophils # (Auto) 0.0 0.0-0.3 10^3/uL Basophils # (Auto) 0.0 0.0-0.1 10^3/uL Immature Granulocyte # (Auto) 0.0 0.0-0.1 10^3/uL Urine Color YELLOW Urine Clarity CLEAR Urine pH 6.5 5-9 Urine Specific [place] 1.025 H 1.016-1.022 Urine Protein TRACE H NEGATIVE Urine Glucose (UA) NEGATIVE NEGATIVE Urine Ketones TRACE H NEGATIVE Urine Nitrite NEGATIVE NEGATIVE Urine Bilirubin NEGATIVE NEGATIVE Urine Urobilinogen 2.0 < = 1.0 MG/DL Urine Leukocyte Esterase 1+ H NEGATIVE Urine RBC (Auto) NEGATIVE NEGATIVE Urine RBC NONE /HPF Urine WBC RARE /HPF Urine Squamous Epithelial Cells 5-10 /HPF Urine Crystals PRESENT H /LPF Urine Calcium Oxalate Crystals MODERATE H /LPF Urine Bacteria TRACE /HPF Urine Casts NONE /LPF Urine Mucus MODERATE H /LPF Urine Culture Indicated NO OB - Assessment/Plan/Diagnosis Assessment Assessment: induction of labor (at 39w3d) Admission Dx 1. IUP at 39 weeks 3 days 2. Maternal distance to hospital Admission Status: Inpatient Order (span 2 midnights) Reason for Inpatient Admission: L&D Plan Plan: Induction Induction Method: per Misoprostol Protocol Other Plan -desires epidural -pitocin as needed KATE WALTER MD Jan 02, 2020 06:36
[2020-01-02] MEDS ORDERED: MINERAL OIL CONCENTRATE 99.9% 15 ML UDC ONE (07:22)
[2020-01-02] MEDS ORDERED: MEPIVACAINE (CARBOCAINE) 2% 50 ML VIAL ONE (07:22)
[2020-01-02] MEDS ORDERED: MINERAL OIL CONCENTRATE 99.9% 15 ML UDC TOP PRN (07:45)
[2020-01-02] MEDS ORDERED: MEPIVACAINE (CARBOCAINE) 2% 20 ML VIAL INJ ONE (07:45)
[2020-01-02] MEDS ORDERED: WITCH HAZEL(TUCKS) 40 EA JAR ONE (08:58)
[2020-01-02] MEDS ORDERED: BENZOCAINE/MENTHOL (DERMOPLAST) 60 ML CAN TP ONE (08:58)
--- NOTE | 2020-01-02 09:26 | OB Labor & Delivery Record ---
L&D History Date of Service Date of Service: Jan 02, 2020 History Expected Date of Delivery: Jan 05, 2020 Gestational Age in Weeks: 39 Hx : 1 Hx Para: 0 Complications Events: Routine care Operative Indications (Cesarea: N/A-Vaginal Delivery Intrapartal Events: None L&D Stage1 Stage One Onset of Labor - Date: Jan 02, 2020 Onset of Labor - Time: 06:28 Monitors and Tracing Monitor Mode: Internal Heart Rate: 120 Monitor Accelerations: Uniform Monitor Decelerations: None Station: -2 Grades 1 6 Tutor Variability: Average (6-10) Short Term Variability: Present Presentation: Vertex Vital Signs VS - Last 72 Hours, by Label 01/01/20 01/01/20 01/01/20 01/01/20 19:30 20:30 21:00 21:30 Temp 36.5 Pulse 129 100 88 90 Resp 18 18 18 18 B/P (MAP) 144/78 (100) 117/75 (89) 117/67 (84) 112/69 (83) Pulse Ox 98 98 O2 Delivery Room Air Room Air Room Air Room Air 01/01/20 01/01/20 01/01/20 01/01/20 21:36 22:30 23:00 23:30 Temp 36.3 36.3 Pulse 123 83 87 88 Resp 18 18 18 18 B/P (MAP) 126/82 (97) 122/76 (91) 112/63 (79) Pulse Ox 98 O2 Delivery Room Air Room Air Room Air Room Air 01/02/20 01/02/20 01/02/20 01/02/20 00:00 00:30 01:00 01:30 Pulse 95 82 82 85 Resp 18 18 18 18 B/P (MAP) 122/77 (92) 122/69 (86) 112/70 (84) 111/66 (81) O2 Delivery Room Air Room Air Room Air Room Air 01/02/20 01/02/20 01/02/20 01/02/20 02:00 02:30 03:00 03:30 Temp 36.5 Pulse 90 91 87 91 Resp 18 18 18 18 B/P (MAP) 111/67 (82) 112/68 (83) 93/55 (68) 93/62 (72) O2 Delivery Room Air Room Air Room Air Room Air 01/02/20 01/02/20 01/02/20 01/02/20 04:00 05:00 05:30 06:00 Pulse 80 88 83 82 Resp 18 18 18 18 B/P (MAP) 112/68 (83) 124/73 (90) 126/76 (93) 118/77 (91) O2 Delivery Room Air Room Air Room Air Room Air 01/02/20 01/02/20 06:30 06:45 Pulse 98 93 Resp 18 18 B/P (MAP) 143/94 (110) 126/83 (97) O2 Delivery Room Air Room Air Signs of Distress by FHT Signs of Distress no Rupture of Membranes Spontaneous Ruture of Membrane: No Amniotic Membrane Rupture Time: 627 Amniotic Membrane Fluid Desc.: Clear Amniotic Fluid Membrane Tests: Nitrazine Positive Induction/Anesthesia Medications Stadol x 2 doses L&D Stage2 Stage Two Stage II Date: Jan 02, 2020 Stage II Time: 08:34 Monitors and Tracing Monitor Mode: Internal Heart Rate: 120 Monitor Accelerations: Uniform Monitor Decelerations: None Grades 1 6 Tutor Variability: Average (6-10) Short Term Variability: Present Position: Left Occiput Anterior Presentation: Vertex Signs of Distress by FHT Signs of Distress no Cord Descript/Complications Cord Vessel Description: 3 Vessels Delivery Type Delivery Method: Spontaneous Vaginal Anterior Shoulder: Left Episiotomy/Perineal Laceration Laceraction(s)/Extensions: No Episiotomy Description: Midline Sutures Used: Vicryl Condition of Delivery 1 minute Comment: 8 5 minute Comment: 9 Condition of Condition of Infant: Living Exam: No Observed Abnormalities Resuscitation Resuscitation: N/A - Spontaneous Resp L&D Stage3 Stage Three Stage III Date: Jan 02, 2020 Stage III Time: 08:39 Pictocin Pitocin Administration mu/min: 4 Pitocin ml/hr: 4 Pitocin Administration Comment: Pitocin increased Placenta Delivery Placenta Delivery: Spontaneous Delivery Summary Summary Estimated blood loss (mL): 150 Condition of Delivery Examined: Cervix Examined Post Hemorrhage: No Intervention Required none KATE WALTER MD Jan 02, 2020 09:25
[2020-01-02] MEDS ORDERED: BENZOCAINE/MENTHOL (DERMOPLAST) 60 ML CAN TP PRN (09:30)
[2020-01-02] MEDS ORDERED: ONDANSETRON 4 MG (ZOFRAN) ORAL DISSOLVE TAB PO SCH (09:30)
[2020-01-02] MEDS ORDERED: WITCH HAZEL(TUCKS) 40 EA JAR TOP PRN (09:30)
[2020-01-02] MEDS ORDERED: TETANUS,DIPTH,PERTUSS P/F (BOOSTRIX) 0.5 ML VIAL IM ONE (09:30)
[2020-01-02] MEDS ORDERED: MEASLES,MUMPS,RUBELLA 1 EA INJ SQ ONE (09:30)
[2020-01-02] MEDS ORDERED: MEPIVACAINE (CARBOCAINE) 2% 20 ML VIAL INJ NR ×2 (09:37→10:15)
[2020-01-02] MEDS: IBUPROFEN 600 MG (MOTRIN) TAB PO SCH ×2 (09:58→16:15)
--- NOTE | 2020-01-02 11:45 | NUR ---
PREPARING PP ROOM FOR TRANSFER OF PT. VS REMAIN STABLE. FF U/0. VAG FLOW LT/MOD RUBRA.
--- NOTE | 2020-01-02 12:00 | NUR ---
UP TO THE BATHROOM. LARGE VOID. PERICARE WITH PAD/PANTIES APPLIED. UP TO W/C FOR TRANSFER TO ROOM.
--- NOTE | 2020-01-02 12:15 | NUR ---
TRANSFERRED TO ROOM 310 VIA W/C. MOM PUSHING INFANT IN OPEN CRIB. ASSISTED TO BED. FFU/1. VAG FLOW LT RUBRA. ORIENTED TO SURROUNDINGS, CALL LIGHT OPERATION, MENU AND PROCEDURE TO CONTACT DIETARY. INFORMATION PAPERS GIVEN.
[2020-01-02] MEDS: ACETAMINOPHEN 500 MG TAB (TYLENOL) PO SCH ×2 (13:58→19:59)
[2020-01-02] MEDS ORDERED: CATHETER FLUSH 10 ML SYR IV SCH (14:00)
--- NOTE | 2020-01-02 16:15 | NUR ---
DOZING WHEN ENTERED ROOM. MOM IN BED BESIDE PT. VSS. ROUTINE MOTRIN GIVEN. CONTINUES TO DENY NEED FOR ICE PACK. BABY IN CRIB.
--- NOTE | 2020-01-02 16:30 | NUR ---
FF U/2. VAG FLOW LT/MOD RUBRA. PT HAS BEEN UP TO THE BATHROOM BY HERSELF. DENIES ANY PROBLEMS .
--- NOTE | 2020-01-02 18:00 | NUR ---
ICE PACK GIVEN TO PT ALTHOUGH HAS NOT WANTED ONE.
[2020-01-02] MEDS ORDERED: DIBUCAINE (NUPERCAINAL) 1% OINT 30 GM TOP PRN (18:30)
--- NOTE | 2020-01-02 18:30 | NUR ---
JUST FINISHED STORK MEAL. NUPERCAINAL GIVEN TO PT WITH INSTRUCTIONS. PT'S MOTHER REMAINS AT THE BEDSIDE. IN NURSERY GETTING BATH.
[2020-01-02] MEDS: DOCUSATE SODIUM 100 MG (COLACE) CAP PO SCH (19:59)
[2020-01-03] VITALS: BP 101/58
[2020-01-03] MEDS: ACETAMINOPHEN 500 MG TAB (TYLENOL) PO SCH ×2 (00:07→08:00)
[2020-01-03] MEDS: IBUPROFEN 600 MG (MOTRIN) TAB PO SCH ×3 (00:07→12:19)
[2020-01-03 03:47] VITALS: BP 109/56
[2020-01-03 06:04] LABS: BASOPHILS % (AUTO) 0 % (0-10); EOSINOPHILS # (AUTO) 0.1 10^3/uL (0.0-0.3); EOSINOPHILS % (AUTO) 1 % (0-10); HEMATOCRIT 26 % (35-52); HEMOGLOBIN 8.2 g/dL (11.5-16.0); LYMPHOCYTES # (AUTO) 2.2 10^3/uL (1.0-4.0); LYMPHOCYTES % (AUTO) 24 % (12-44); MEAN CORPUSCULAR HEMOGLOBIN 30 pg (25-34); MEAN CORPUSCULAR HGB CONC 32 g/dL (32-36); MEAN CORPUSCULAR VOLUME 92 fL (80-99); MEAN PLATELET VOLUME 11.8 fL (9.0-12.2); MONOCYTES # (AUTO) 0.9 10^3/uL (0.0-1.0); MONOCYTES % (AUTO) 10 % (0-12); NEUTROPHILS # (AUTO) 5.8 10^3/uL (1.8-7.8); NEUTROPHILS % (AUTO) 65 % (42-75); PLATELET COUNT 152 10^3/uL (130-400)
--- NOTE | 2020-01-03 06:55 | Discharge Summary ---
Diagnosis/Chief Complaint Date of Admission Jan 01, 2020 at 19:09 Date of Discharge January 03, 2020 Admission Diagnosis Admission Diagnosis 1. Intrauterine at 39 weeks gestation Discharge Diagnosis 1. Intrauterine at 39 weeks gestation 2. Anemia, blood loss following delivery Chief Complaint/HPI Chief Complaint/HPI 24-year-old 1 now term 1 who initially presented to labor and delivery during the evening of December 31 for induction of labor at 39 weeks 3 days gestation. She has been having frequent contraction. Her EDC is January 05, 2020. care was obtained through [facility] and essentially unremarkable. Discharge Summary-OBS Procedures 1. Spontaneous vaginal delivery 2. Repair of midline episiotomy Discharge Physical Examination Allergies: Coded Allergies: sucralfate (Unverified Allergy, Unknown, 12/03/19) Vitals & I&Os Intake and Output 01/03/20 00:00 Intake Total 500 ml Balance 500 ml Vital Sign - Last 12Hours Date Time Temp Pulse Resp B/P (MAP) Pulse Ox O2 Delivery O2 Flow Rate FiO2 01/03/20 03:47 36.6 82 18 109/56 (73) Room Air 01/03/20 00:00 97 General Appearance: No Acute Distress Respiratory: Clear to Auscultation Cardiovascular: Regular Rate Abdominal: Soft (with uterus firm) Hospital Course Was the Problem List Reviewed?: Yes patient was admitted during the evening of January 01, 2020. She underwent Cytotec induction and received 1 dose of 100 orally. She developed a contraction pattern. Ultimately she underwent amniotomy at 06 38 on January 02, 2020. She rapidly went on to completion and delivered at 834 a term viable female. received Apgars of 8 at 1 minute and 9 at 5 minutes. Following delivery she underwent routine care orders. She had no complications during the remainder of hospital stay. She reported essentially no significant vaginal bleeding. Her hemoglobin in the morning of January 02 was noted to be 8.2 and this was compared to admission of 11.0. She was asymptomatic and had stable vital signs. She was eager for dismissal and will be released in the early afternoon of January 02. She will stay on vitamins and iron. Follow-up in 6 weeks at [facility] Labs Laboratory Tests 01/03/20 05:23: White Blood Count 9.0, Red Blood Count 2.76L, Hemoglobin 8.2#L, Hematocrit 26L, Mean Corpuscular Volume 92, Mean Corpuscular Hemoglobin 30, Mean Corpuscular Hemoglobin Concent 32, Red Cell Distribution Width 13.4, Platelet Count 152, Mean Platelet Volume 11.8, Immature Granulocyte % (Auto) 0, Neutrophils (%) (Auto) 65, Lymphocytes (%) (Auto) 24, Monocytes (%) (Auto) 10, Eosinophils (%) (Auto) 1, Basophils (%) (Auto) 0, Neutrophils # (Auto) 5.8, Lymphocytes # (Auto) 2.2, Monocytes # (Auto) 0.9, Eosinophils # (Auto) 0.1, Basophils # (Auto) 0.0, Immature Granulocyte # (Auto) 0.0 Discharge Instructions to patient/family Please see electronic discharge instructions given to patient. Discharge Medications Reviewed and agree with Discharge Medication list on patient's Discharge Instruction sheet Clinical Quality Measures DVT/VTE Risk/Contraindication: Risk Factor Score Per Nursin RFS Level Per Nursing on Admit: 1=Low/No VTE PPX KATE WALTER MD Jan 03, 2020 06:55
[2020-01-03] MEDS ORDERED: FERR-84 PO (06:58)
[2020-01-03] MEDS ORDERED: IBUP-844 PO (06:58)
--- NOTE | 2020-01-03 06:59 | Discharge Inst-Women's Service ---
Discharge Inst-Women's Serv Depart Medication/Instructions New, Converted or Re-Newed RX: Transmitted to Pharmacy ([facility]) Problems Reviewed?: Yes Consults/Follow Up Additional Follow Up: Yes (Dr Narvaez in 6 weeks at [facility]) Activity NO SMOKING: NO SMOKING Nothing Inside Vagina: No Fox (for 6 weeks) Diet Discharge Diet: Regular Diet Return to The Hospital For: as below Symptoms to Report to : Bleeding Excessive, Pain Increased, Fever Over 101 Degrees F, Vaginal Discharge KATE Castellano MD Jan 03, 2020 06:59
[2020-01-03] MEDS: DOCUSATE SODIUM 100 MG (COLACE) CAP PO SCH (07:59)
--- NOTE | 2020-01-03 08:00 | NUR ---
PT UP IN SHOWER. MOM CARING FOR AT BEDSIDE.
[2020-01-03 08:30] VITALS: BP 118/82
--- NOTE | 2020-01-03 08:30 | NUR ---
A.M. ASSESSMENT COMPLETED. VSS. HEMORRHOID LOOKS BETTER TODAY WITH LESS SWELLING. PT DENIES PAIN.
--- NOTE | 2020-01-03 10:00 | NUR ---
FLOORING INSTALLER HERE FOR CONSULT.
--- NOTE | 2020-01-03 10:57 | NUR ---
RHOGAM 1 VIAL GIVEN IM IN LEFT DELTOID BY LILIAN BLACKMAN RN. SITE CLEAR.
[2020-01-03 12:15] VITALS: BP 103/68
--- NOTE | 2020-01-03 12:27 | NUR ---
CM/SS: Visited with pt and her mother related to the Social Service Consult related to belligerant significant other and mother needing assistance with baby Plan: Pt will take baby home and will be living with her mother at time of dismissal Summary: Pt reports that she is doing ok and that she is currently living in [facility] with her parents. Pt seems to have some delays and may be lower functioning. Pt just wants to watch cartoons on the TV as opposed to paying attention to what this worker is saying. Mother of pt is in the room and is listening to this worker. She does have a boyfriend that she has been with for a month, however he is not the father of the baby. She indicates the father has been difficult and they are not having contact at this time. She reports that she does have services through [facility]. She has a WIC appointment set up for 01/06 at the [facility]. She reports that she may not have enough formula until WIC appointment. Pt has support of her mother and father. Discussed post depression. This worker will follow up. Telephone call to [facility] - talk with Relocation Coordinator - she is assigned to [facility]. They are able to provide formula for the baby. Family just need to come by and mushroom picker the formula. This worker lets pt and family know that they can mushroom picker formula from [facility]. They are able to do so and can after she is discharged from the hospital. This worker followed up with LISA Luz to let her know the plan for pt.
--- NOTE | 2020-01-03 12:30 | NUR ---
DISCHARGE INSTRUCTIONS REVIEWED WITH COPY TO PT. STATES UNDERSTANDING OF ALL INSTRUCTIONS AND NEED TO F/U SCHEDULED AND NEEDED.
[2020-01-03 13:15] VITALS: BP 103/68
--- NOTE | 2020-01-03 13:15 | NUR ---
DISMISSED AMB FROM WS WITH TO FAMILY CAR IN STABLE CONDITION ACC BY MOTHER AND WS STAFF.
== END 2020-01-03 13:15 | disposition home or self-care (01) | DRG 806 ==
LOC: WSo 19:07 → LDRP 19:09
PROVIDERS: ADMIT Family Medicine; ATTEND Family Medicine
PROC: 10E0XZZ Delivery of Products of Conception, External Approach (ICD-10-PCS; principal; 2020-01-02)
PROC: 0W8NXZZ Division of Female Perineum, External Approach (ICD-10-PCS; 2020-01-02)
DX: O90.81 Anemia of the puerperium (principal); D62 Acute posthemorrhagic anemia; Z37.0 Single live birth; Z3A.39 39 weeks gestation of pregnancy
CPT/HCPCS: 36415; 81000; 83033; 85025; 86850; 86900; 86901

== ENCOUNTER 2020-09-07 19:42 | Outpatient (CLI) | payer MEDICAID ==
[~2020-09-07] VITALS: Ht 157.5 cm; Wt 69.3 kg
[~2020-09-07 19:42] MED LIST changes: +FERR-84 PO; +IBUP-844 PO
[2020-09-07 20:01] VITALS: BP 115/71
== END 2020-09-07 21:15 | disposition home or self-care (01) ==
LOC: WSo 19:42 → LDRP 19:43 → WSo 21:15
PROVIDERS: ATTEND Family Medicine
DX: O29.42 Spinal and epidural anesthesia induced headache during pregnancy, second trimester (principal); Z3A.25 25 weeks gestation of pregnancy
CPT/HCPCS: 99213

== ENCOUNTER 2020-10-05 18:46 | Outpatient (CLI) | payer MEDICAID ==
[~2020-10-05] VITALS: Ht 157.4 cm; Wt 67.9 kg
[2020-10-05 19:41] LABS: BILIRUBIN,URINE NEGATIVE (NEGATIVE); CLARITY,URINE CLEAR; COLOR,URINE YELLOW; GLUCOSE, URINE (UA) NEGATIVE (NEGATIVE); KETONES,URINE NEGATIVE (NEGATIVE); LEUKOCYTE ESTERASE ,URINE NEGATIVE (NEGATIVE); NITRITE,URINE NEGATIVE (NEGATIVE); PH,URINE 6.5 (5-9); PROTEIN,URINE NEGATIVE (NEGATIVE)
[2020-10-05 19:59] LABS: BACTERIA,URINE TRACE /HPF; CALCIUM OXALATE CRYSTALS,UR LARGE /LPF
[2020-10-05 20:20] VITALS: BP 117/68
[2020-10-05 20:22] VITALS: BP 117/68
--- NOTE | 2020-10-06 07:44 | Physician Query-Final Dx ---
AMOS MEDINA 10/06/20 0744: Clinic Account Progress/Dx Physician Query: Please give diagnosis Please include # weeks gestation Date of Service Oct 05, 2020 at 18:46 MICA AGUILAR MD 10/06/20 2217: Clinic Account Progress/Dx DIAGNOSIS: Diagnosis Third trimester 29 week gestation Decreased movement AMOS MEDINA Oct 06, 2020 07:44 MICA AGUILAR MD Oct 06, 2020 22:17
== END 2020-10-05 20:35 ==
LOC: WSo 18:46 → LDRP 18:46 → WSo 20:35
PROVIDERS: ATTEND Family Medicine
DX: O36.8130 Decreased fetal movements, third trimester, not applicable or unspecified (principal); Z3A.29 29 weeks gestation of pregnancy
CPT/HCPCS: 81000; 99213

== ENCOUNTER 2020-11-05 18:41 | Outpatient (CLI) | payer MEDICAID ==
[~2020-11-05] VITALS: Ht 157.5 cm; Wt 67.7 kg
[2020-11-05 19:10] VITALS: BP 121/75
[2020-11-05 19:30] LABS: BILIRUBIN,URINE NEGATIVE (NEGATIVE); CLARITY,URINE CLEAR; COLOR,URINE YELLOW; GLUCOSE, URINE (UA) NEGATIVE (NEGATIVE); KETONES,URINE NEGATIVE (NEGATIVE); LEUKOCYTE ESTERASE ,URINE NEGATIVE (NEGATIVE); NITRITE,URINE NEGATIVE (NEGATIVE); PH,URINE 7.5 (5-9); PROTEIN,URINE NEGATIVE (NEGATIVE)
[2020-11-05 19:47] LABS: BACTERIA,URINE TRACE /HPF
--- NOTE | 2020-11-06 07:40 | Physician Query-Final Dx ---
AMOS MEDINA 11/06/20 0740: Clinic Account Progress/Dx Physician Query: Please give diagnosis Please include # weeks gestation Date of Service Nov 05, 2020 at 18:41 KATE WALTER MD 11/08/20 0736: Clinic Account Progress/Dx DIAGNOSIS: Diagnosis 1. IUP at 34 weeks, non labor 2. Uterine irritability AMOS MEDINA Nov 06, 2020 07:40 KATE WALTER MD Nov 08, 2020 07:36
== END 2020-11-05 22:10 | disposition home or self-care (01) ==
LOC: LDRP 18:41 → WSo 18:41 → LDRP 19:27 → WSo 22:10
PROVIDERS: ATTEND Family Medicine
DX: O62.4 Hypertonic, incoordinate, and prolonged uterine contractions (principal); Z3A.34 34 weeks gestation of pregnancy
CPT/HCPCS: 81000; G0463; 99213

== ENCOUNTER 2020-11-27 23:12 | Inpatient (IN) | payer MEDICAID ==
[~2020-11-27] VITALS: Ht 157.5 cm; Wt 67.7 kg
[2020-11-27 23:35] VITALS: BP 125/81
[2020-11-28] VITALS (20 sets, daily range): BP systolic 103–145; BP diastolic 56–91
[2020-11-28] MEDS ORDERED: CETI10TA49 PO (00:29)
[2020-11-28] MEDS ORDERED: ZOLPIDEM 5 MG (AMBIEN) TAB ONE (00:44)
[2020-11-28] MEDS ORDERED: ZOLPIDEM 5 MG (AMBIEN) TAB PO ONE (01:00)
[2020-11-28 02:13] LABS: BILIRUBIN,URINE NEGATIVE (NEGATIVE); CLARITY,URINE CLEAR; COLOR,URINE YELLOW; GLUCOSE, URINE (UA) NEGATIVE (NEGATIVE); KETONES,URINE 3+ (NEGATIVE); LEUKOCYTE ESTERASE ,URINE NEGATIVE (NEGATIVE); NITRITE,URINE NEGATIVE (NEGATIVE); PROTEIN,URINE NEGATIVE (NEGATIVE)
[2020-11-28 02:22] LABS: BACTERIA,URINE NEGATIVE /HPF
[2020-11-28] MEDS ORDERED: D5 LR IV SOLUTION 1,000 ML IV SCH ×2 (06:45)
[2020-11-28] MEDS ORDERED: MINERAL OIL CONCENTRATE 99.9% 15 ML UDC TOP PRN (06:45)
[2020-11-28] MEDS ORDERED: MEPIVACAINE (CARBOCAINE) 2% 50 ML VIAL INJ PRN (06:45)
--- NOTE | 2020-11-28 06:45 | History & Physical-OB ---
OB - Chief Complaint & HPI Date/Time Date of Admission: Date of Admission: Nov 28, 2020 at 06:40 Date seen by a Provider: Nov 28, 2020 Time Seen by a Provider: 06:40 Chief Complaint/History OB-Reason for Admission/Chief: Onset of Labor Hx : 2 Hx Para: 1 Expected Date of Delivery: Dec 15, 2020 Gestational Age in Weeks: 37 Gestational Age in Days: 4 Admission Nurse Assessment Rev: Yes History of Labs GBS negative Allergies and Home Medications Allergies Coded Allergies: sucralfate (Unverified Allergy, Unknown, 12/03/19) Home Medications Cetirizine HCl 10 Mg Tablet, 10 MG PO PRN, (Reported) Last Action: New Order Vit W-Ca,Fe,FA(<1 mg) 1 Each Tablet, 1 EACH PO DAILY, (Reported) Last Action: Reviewed Patient Home Medication List Home Medication List Reviewed: Yes OB - History Hx of Present Care: Yes Ultrasounds: Normal mid trimester US Obstetrical Complications: None Medical Complications: None Delivery History Hx Blood Disorders: No Adverse Rxn to Tranfusion: No Patient Past Medical History no chronic medical problems Social History/Family History 2nd Hand Smoke Exposure: No Immunizations Tetanus Booster (TDap): Less than 5yrs OB - Admission Exam Physical Exam Vitals: Vital Signs 11/27/20 11/28/20 11/28/20 11/28/20 23:35 03:00 04:00 05:00 Temp 36.4 Pulse 100 Resp 18 B/P (MAP) 106/64 (78) Pulse Ox 99 O2 Delivery Room Air HEENT: Moist Membranes Heart: Rhythm Normal Lungs: Clear Abdomen: Gravid Cervical Dilatation: 4cm Effacement: 75% Station: -3 Membranes: Ruptured Amniotic Fluid: Clear Heart Rate: 140's Accelerations: Accelerations Present Short Term Variability: Present Penitentiary Variability: Average (6-25) Contractions on Admission: 6-10 Minutes Apart Intensity: Moderate Labs Laboratory Tests Test 11/28/20 00:15 Range/Units Urine Color YELLOW Urine Clarity CLEAR Urine pH 6.0 5-9 Urine Specific [place] 1.015 L 1.016-1.022 Urine Protein NEGATIVE NEGATIVE Urine Glucose (UA) NEGATIVE NEGATIVE Urine Ketones 3+ H NEGATIVE Urine Nitrite NEGATIVE NEGATIVE Urine Bilirubin NEGATIVE NEGATIVE Urine Urobilinogen 1.0 < = 1.0 MG/DL Urine Leukocyte Esterase NEGATIVE NEGATIVE Urine RBC (Auto) NEGATIVE NEGATIVE Urine RBC NONE /HPF Urine WBC NONE /HPF Urine Squamous Epithelial Cells 2-5 /HPF Urine Crystals NONE /LPF Urine Bacteria NEGATIVE /HPF Urine Casts NONE /LPF Urine Mucus MODERATE H /LPF Urine Culture Indicated NO OB - Assessment/Plan/Diagnosis Assessment Assessment: active labor Admission Dx 1. IUP at term 37w4d in labor Admission Status: Inpatient Order (span 2 midnights) Reason for Inpatient Admission: L&D Plan Plan: Expectant Management Other Plan -pitocin if needed KATE WALTER MD Nov 28, 2020 06:45
[2020-11-28] MEDS ORDERED: BUTORPHANOL INJ 2 MG/ML (STADOL) VIAL ONE (06:54)
[2020-11-28 06:55] LABS: BASOPHILS % (AUTO) 0 % (0-10); EOSINOPHILS % (AUTO) 0 % (0-10); HEMATOCRIT 32 % (35-52); HEMOGLOBIN 9.6 g/dL (11.5-16.0); LYMPHOCYTES # (AUTO) 1.8 10^3/uL (1.0-4.0); LYMPHOCYTES % (AUTO) 21 % (12-44); MEAN CORPUSCULAR HEMOGLOBIN 27 pg (25-34); MEAN CORPUSCULAR HGB CONC 30 g/dL (32-36); MEAN CORPUSCULAR VOLUME 90 fL (80-99); MEAN PLATELET VOLUME 11.8 fL (9.0-12.2); MONOCYTES % (AUTO) 12 % (0-12); NEUTROPHILS # (AUTO) 5.5 10^3/uL (1.8-7.8); NEUTROPHILS % (AUTO) 65 % (42-75); PLATELET COUNT 213 10^3/uL (130-400); WHITE BLOOD COUNT 8.4 10^3/uL (4.3-11.0)
[2020-11-28] MEDS ORDERED: BUTORPHANOL INJ 2 MG/ML (STADOL) VIAL IV ONE (07:00)
[2020-11-28] MEDS ORDERED: OXYTOCIN PRE-MIX DRIP 500 ML IV SCH ×2 (08:00→11:15)
--- NOTE | 2020-11-28 11:10 | OB Labor & Delivery Record ---
L&D History Date of Service Date of Service: Nov 28, 2020 History Expected Date of Delivery: Dec 15, 2020 Gestational Age in Weeks: 37 Hx : 2 Hx Para: 2 Complications Events: Routine care Operative Indications (Cesarea: N/A-Vaginal Delivery Intrapartal Events: None L&D Stage1 Stage One Onset of Labor - Date: Nov 28, 2020 Onset of Labor - Time: 22:00 Monitors and Tracing Monitor Mode: External Heart Rate: 125 Monitor Accelerations: Uniform Monitor Decelerations: None Station: -2 Train Control Electronic Technician Variability: Average (6-10) Short Term Variability: Present Presentation: Vertex Vital Signs VS - Last 72 Hours, by Label 11/27/20 11/28/20 11/28/20 11/28/20 23:35 03:00 04:00 05:00 Temp 36.8 36.4 Pulse 105 100 Resp 18 18 18 18 B/P (MAP) 106/64 (78) Pulse Ox 99 O2 Delivery Room Air 11/28/20 11/28/20 11/28/20 11/28/20 06:00 07:00 08:30 08:45 Temp 36.4 Pulse 103 110 102 Resp 18 18 18 18 B/P (MAP) 116/75 (89) 117/76 (90) 121/79 (93) 11/28/20 11/28/20 09:00 09:15 Pulse 100 100 Resp 18 18 B/P (MAP) 124/80 (95) 109/71 (84) Signs of Distress by FHT Signs of Distress no Rupture of Membranes Spontaneous Ruture of Membrane: No Amniotic Membrane Rupture Time: 0639 Amniotic Membrane Fluid Desc.: Clear Vaginal Bleeding Description: None Induction/Anesthesia Medications Stadol 1mg x 1 L&D Stage2 Stage Two Stage II Date: Nov 28, 2020 Stage II Time: 10:07 Monitors and Tracing Monitor Mode: External Heart Rate: 125 Monitor Accelerations: Uniform Monitor Decelerations: None Senior Living Variability: Average (6-10) Short Term Variability: Present Position: Left Occiput Anterior Presentation: Vertex Signs of Distress by FHT Signs of Distress no Cord Descript/Complications Cord Vessel Description: 3 Vessels Delivery Type Infant Delivery Method: Spontaneous Vaginal Anterior Shoulder: Left Episiotomy/Perineal Laceration Laceraction(s)/Extensions: Yes Episiotomy Description: Periurethral Extnsion/lac (L) Sutures Used: Vicryl Condition of Delivery 1 minute Comment: 9 5 minute Comment: 9 Condition of Condition of : Living Exam: No Observed Abnormalities Resuscitation Resuscitation: N/A - Spontaneous Resp L&D Stage3 Stage Three Stage III Date: Nov 28, 2020 Stage III Time: 10:13 Pictocin Pitocin Administration mu/min: 12 Placenta Delivery Placenta Delivery: Spontaneous Delivery Summary Summary Estimated blood loss (mL): 150 Condition of Delivery Examined: Cervix Examined Post Hemorrhage: No Intervention Required none KTAE WALTER MD Nov 28, 2020 11:10
[2020-11-28] MEDS ORDERED: NALOXONE 0.4 MG/ML 1 ML (NARCAN) VIAL IV PRN (11:15)
[2020-11-28] MEDS ORDERED: TETANUS,DIPTH,PERTUSS P/F (BOOSTRIX) 0.5 ML VIAL IM ONE (11:15)
[2020-11-28] MEDS ORDERED: BENZOCAINE/MENTHOL (DERMOPLAST) 56 ML CAN TP PRN (11:15)
[2020-11-28] MEDS ORDERED: WITCH HAZEL(TUCKS) 40 EA JAR TOP PRN (11:15)
[2020-11-28] MEDS ORDERED: MEASLES,MUMPS,RUBELLA 1 EA INJ SQ ONE (11:15)
[2020-11-28] MEDS: IBUPROFEN 600 MG (MOTRIN) TAB PO SCH ×3 (11:18→23:49)
[2020-11-28] MEDS: ACETAMINOPHEN 500 MG TAB (TYLENOL) PO SCH ×2 (12:36→23:49)
[2020-11-28] MEDS ORDERED: CATHETER FLUSH 10 ML SYR IV SCH ×2 (14:00)
[2020-11-28] MEDS: DOCUSATE SODIUM 100 MG (COLACE) CAP PO SCH (23:49)
[2020-11-29] MEDS: ACETAMINOPHEN 500 MG TAB (TYLENOL) PO SCH ×2 (06:00→06:45)
[2020-11-29 06:24] LABS: BASOPHILS % (AUTO) 0 % (0-10); EOSINOPHILS # (AUTO) 0.1 10^3/uL (0.0-0.3); EOSINOPHILS % (AUTO) 1 % (0-10); HEMATOCRIT 27 % (35-52); HEMOGLOBIN 8.2 g/dL (11.5-16.0); LYMPHOCYTES # (AUTO) 2.8 10^3/uL (1.0-4.0); LYMPHOCYTES % (AUTO) 30 % (12-44); MEAN CORPUSCULAR HEMOGLOBIN 27 pg (25-34); MEAN CORPUSCULAR HGB CONC 30 g/dL (32-36); MEAN CORPUSCULAR VOLUME 90 fL (80-99); MEAN PLATELET VOLUME 12.3 fL (9.0-12.2); MONOCYTES # (AUTO) 0.9 10^3/uL (0.0-1.0); MONOCYTES % (AUTO) 10 % (0-12); NEUTROPHILS # (AUTO) 5.4 10^3/uL (1.8-7.8); NEUTROPHILS % (AUTO) 58 % (42-75); PLATELET COUNT 189 10^3/uL (130-400); WHITE BLOOD COUNT 9.3 10^3/uL (4.3-11.0)
[2020-11-29] MEDS: IBUPROFEN 600 MG (MOTRIN) TAB PO SCH ×2 (06:44→12:23)
[2020-11-29 06:53] VITALS: BP 103/62
[2020-11-29 08:40] VITALS: BP 124/66
[2020-11-29] MEDS: DOCUSATE SODIUM 100 MG (COLACE) CAP PO SCH (08:41)
--- NOTE | 2020-11-29 09:26 | Discharge Summary ---
Diagnosis/Chief Complaint Date of Admission Nov 28, 2020 at 06:40 Date of Discharge November 29, 2020 Admission Diagnosis Admission Diagnosis 1. Intrauterine at 37 weeks gestation Discharge Diagnosis 1. Intrauterine at 37 weeks gestation 2. Iron deficiency anemia Chief Complaint/HPI Chief Complaint/HPI 25-year-old 2 now term 2 who initially presents to women services during the evening of November 27, 2020 with uterine contractions. At that time she was observed during the spanish tutor of November 28 and ultimately was noted to be in labor with cervical change. Her due date is December 15, 2020. Her GBS status at 36 weeks gestation was negative. Discharge Summary-OBS Procedures 1. Spontaneous vaginal delivery Discharge Physical Examination Allergies: Coded Allergies: sucralfate (Unverified Allergy, Unknown, 12/03/19) Vitals & I&Os Intake and Output 11/29/20 00:00 Intake Total 500 ml Balance 500 ml Vital Sign - Last 12Hours Date Time Temp Pulse Resp B/P (MAP) Pulse Ox O2 Delivery O2 Flow Rate FiO2 11/29/20 06:53 36.2 80 18 103/62 (76) 99 Room Air General Appearance: No Acute Distress Respiratory: Clear to Auscultation Cardiovascular: Regular Rate Abdominal: Soft (With uterus firm) Hospital Course Was the Problem List Reviewed?: No Patient was admitted during the morning of November 28, 2020 in active labor. She underwent amniotomy with placement of scalp electrode. Fluid was noted to be clear. Strip remained reactive. She did not request epidural. 1 dose of Stadol 1 mg given for pain relief. She quickly went on the completion and delivered a term viable female at 1007 on November 28. She had a left-sided periurethral tear that was repaired with 3-0 Vicryl. Following delivery she underwent routine care orders. She had no complications during the remainder of stay. She tolerated regular diet. She did not develop any chest pain or shortness of breath. She was ambulatory without leg pain. Her hemoglobin in the morning of November 29 was noted to be 8.2 and this was compared to admission of 9.6. Her vital signs were stable and she was without tachycardia. She was eager for dismissal during the afternoon of November 29 and will follow up in 6 weeks. Labs Laboratory Tests 11/29/20 05:17: White Blood Count 9.3, Red Blood Count 3.02L, Hemoglobin 8.2L, Hematocrit 27L, Mean Corpuscular Volume 90, Mean Corpuscular Hemoglobin 27, Mean Corpuscular Hemoglobin Concent 30L, Red Cell Distribution Width 14.9H, Platelet Count 189, Mean Platelet Volume 12.3H, Immature Granulocyte % (Auto) 0, Neutrophils (%) (Auto) 58, Lymphocytes (%) (Auto) 30, Monocytes (%) (Auto) 10, Eosinophils (%) (Auto) 1, Basophils (%) (Auto) 0, Neutrophils # (Auto) 5.4, Lymphocytes # (Auto) 2.8, Monocytes # (Auto) 0.9, Eosinophils # (Auto) 0.1, Basophils # (Auto) 0.0, Immature Granulocyte # (Auto) 0.0 Discharge Instructions to patient/family Please see electronic discharge instructions given to patient. Discharge Medications Reviewed and agree with Discharge Medication list on patient's Discharge Instruction sheet KATE WALTER MD Nov 29, 2020 09:26
[2020-11-29] MEDS ORDERED: IBUP-844 PO (09:29)
[2020-11-29] MEDS ORDERED: FERR-84 PO (09:29)
--- NOTE | 2020-11-29 09:30 | Discharge Inst-Women's Service ---
Discharge Inst-Women's Serv Depart Medication/Instructions New, Converted or Re-Newed RX: Transmitted to Pharmacy ([facility] in [place] ) Problems Reviewed?: Yes Consults/Follow Up Additional Follow Up: Yes (Dr Walter in 6 weeks at [facility]) Activity Activity: Activity as Tolerated Driving Instructions: No Driving for 1 Week Nothing Inside Vagina: No [place] (for 6 weeks.) Diet Discharge Diet: Regular Diet Return to The Hospital For: as below Symptoms to Report to : Bleeding Excessive, Fever Over 101 Degrees F, Vaginal Discharge Foul For Any Problems or Questions: Contact Your Physician KATE WALTER MD Nov 29, 2020 09:30
[2020-11-29 13:20] VITALS: BP 124/66
== END 2020-11-29 13:20 | disposition home or self-care (01) | DRG 807 ==
LOC: WSo 23:12 → LDRP 23:13 → WSo 11-28 06:39 → LDRP 11-28 06:40
PROVIDERS: ADMIT Family Medicine; ATTEND Family Medicine
PROC: 10E0XZZ Delivery of Products of Conception, External Approach (ICD-10-PCS; principal; 2020-11-28)
PROC: 0UQMXZZ Repair Vulva, External Approach (ICD-10-PCS; 2020-11-28)
DX: O71.82 Other specified trauma to perineum and vulva (principal); Z37.0 Single live birth; Z3A.37 37 weeks gestation of pregnancy; D50.9 Iron deficiency anemia, unspecified
CPT/HCPCS: 36415; 81000; 83033; 85025; 86850; 86900; 86901; 99212

== ENCOUNTER 2021-07-17 02:05 | Outpatient (CLI) | payer MEDICAID ==
[~2021-07-17] VITALS: Ht 157.5 cm; Wt 61.3 kg
[~2021-07-17 02:05] MED LIST changes: +CETI10TA49 PO
[2021-07-17] MEDS ORDERED: ONDA4TAB11 PO (02:12)
[2021-07-17 02:15] VITALS: BP 120/63
[2021-07-17 03:17] VITALS: BP 120/63
[2021-07-17 03:33] LABS: CLARITY,URINE CLEAR; COLOR,URINE YELLOW; GLUCOSE, URINE (UA) NEGATIVE (NEGATIVE); KETONES,URINE 1+ (NEGATIVE); LEUKOCYTE ESTERASE ,URINE NEGATIVE (NEGATIVE); NITRITE,URINE NEGATIVE (NEGATIVE); PROTEIN,URINE NEGATIVE (NEGATIVE)
[2021-07-17 03:52] LABS: BACTERIA,URINE NEGATIVE /HPF
[2021-07-17 03:53] LABS: BILIRUBIN,URINE 1+ (NEGATIVE)
[2021-07-17] MEDS ORDERED: LACTATED RINGERS 1,000 ML IV SCH (04:15)
[2021-07-17] MEDS ORDERED: PROMETHAZINE INJ 25 MG/ML (PHENERGAN) AMP IVP ONE (04:15)
--- NOTE | 2021-07-19 08:06 | Physician Query-Final Dx ---
ADAM,07/19/21 0806: Clinic Account Progress/Dx Physician Query: Please give diagnosis Please include # weeks gestation Date of Service Jul 17, 2021 at 02:05 DEANDRE HAWLEY MD 07/19/21 0847: Clinic Account Progress/Dx DIAGNOSIS: Diagnosis 21 weeks gestation tabby MEDINA,AprJul 19, 2021 08:06 DEANDRE HAWLEY MD Jul 19, 2021 08:47
== END 2021-07-17 04:37 ==
LOC: LDRP 02:05 → WSo 02:05
PROVIDERS: ATTEND Family Medicine
DX: O21.2 Late vomiting of pregnancy (principal); Z3A.21 21 weeks gestation of pregnancy
CPT/HCPCS: 81000; 99213

== ENCOUNTER 2021-09-02 17:22 | Outpatient (CLI) | payer MEDICAID ==
[~2021-09-02] VITALS: Ht 157.5 cm; Wt 63.7 kg
[2021-09-02 17:49] VITALS: BP 120/69
[2021-09-02 17:57] LABS: BILIRUBIN,URINE NEGATIVE (NEGATIVE); CLARITY,URINE CLOUDY; COLOR,URINE YELLOW; GLUCOSE, URINE (UA) NEGATIVE (NEGATIVE); KETONES,URINE 1+ (NEGATIVE); LEUKOCYTE ESTERASE ,URINE 2+ (NEGATIVE); NITRITE,URINE NEGATIVE (NEGATIVE); PROTEIN,URINE TRACE (NEGATIVE)
[2021-09-02 18:00] VITALS: BP 116/70
[2021-09-02 18:10] LABS: AMORPHOUS SEDIMENT,UR FEW AMOR PHOSPHATE /LPF; BACTERIA,URINE NEGATIVE /HPF
[2021-09-02 18:12] VITALS: BP 120/69
[2021-09-02 18:18] VITALS: BP 120/69
[2021-09-02 18:23] VITALS: BP 115/66
[2021-09-02 18:45] VITALS: BP 115/66
== END 2021-09-02 18:45 | disposition home or self-care (01) ==
LOC: WSo 17:22
PROVIDERS: ATTEND Family Medicine
DX: Z34.90 Encounter for supervision of normal pregnancy, unspecified, unspecified trimester (principal)
CPT/HCPCS: 81000; 84112

== ENCOUNTER 2021-10-20 18:17 | Outpatient (CLI) | payer MEDICAID ==
[~2021-10-20] VITALS: Ht 157.5 cm; Wt 62.7 kg
[~2021-10-20 18:17] MED LIST changes: -FAMO1TAB3 PO; +FAMO1TAB4 PO
[2021-10-20 18:25] VITALS: BP 121/76
[2021-10-20 18:30] VITALS: BP 121/76
--- NOTE | 2021-10-21 09:29 | Physician Query-Final Dx ---
Clinic Account Progress/Dx Physician Query: Please give diagnosis Please include # weeks gestation Date of Service Oct 20, 2021 at 18:17 ADAM,AprOct 21, 2021 09:29
== END 2021-10-20 19:50 ==
LOC: LDRP 18:17 → WSo 18:17
PROVIDERS: ATTEND Family Medicine
DX: O62.9 Abnormality of forces of labor, unspecified (principal); Z3A.00 Weeks of gestation of pregnancy not specified
CPT/HCPCS: 99212

== ENCOUNTER 2021-10-22 21:29 | Outpatient (CLI) | payer MEDICAID ==
[~2021-10-22] VITALS: Ht 157.5 cm; Wt 63.2 kg
[2021-10-22 21:49] VITALS: BP 122/72
[2021-10-22 22:02] LABS: BILIRUBIN,URINE NEGATIVE (NEGATIVE); CLARITY,URINE SL CLOUDY; COLOR,URINE YELLOW; GLUCOSE, URINE (UA) NEGATIVE (NEGATIVE); KETONES,URINE NEGATIVE (NEGATIVE); LEUKOCYTE ESTERASE ,URINE 1+ (NEGATIVE); NITRITE,URINE NEGATIVE (NEGATIVE); PROTEIN,URINE NEGATIVE (NEGATIVE)
[2021-10-22 22:10] LABS: BACTERIA,URINE MODERATE /HPF
[2021-10-22] MEDS ORDERED: AMOX500C2 PO (22:33)
--- NOTE | 2021-10-24 10:56 | Physician Query-Final Dx ---
Clinic Account Progress/Dx Physician Query: Date of Service Oct 22, 2021 at 21:29 DIAGNOSIS: Diagnosis Third trimester 35 weeks gestation Pelvic pressure without contractions or labor Urinary tract infection suspected- amoxicillin prescribed DEANDRE HAWLEY MD Oct 24, 2021 10:56
== END 2021-10-22 23:07 | disposition home or self-care (01) ==
LOC: WSo 21:29
PROVIDERS: ATTEND Family Medicine
DX: O26.893 Other specified pregnancy related conditions, third trimester (principal); O23.43 Unspecified infection of urinary tract in pregnancy, third trimester; R10.2 Pelvic and perineal pain; N39.0 Urinary tract infection, site not specified; Z3A.35 35 weeks gestation of pregnancy
CPT/HCPCS: 81000; 87088; G0463; 99213

== ENCOUNTER 2021-10-31 21:18 | Outpatient (CLI) | payer MEDICAID ==
[~2021-10-31] VITALS: Ht 157.5 cm; Wt 65.1 kg
[~2021-10-31 21:18] MED LIST changes: +AMOX500C2 PO
[2021-10-31 21:24] VITALS: BP 114/71
[2021-10-31 22:07] LABS: BILIRUBIN,URINE NEGATIVE (NEGATIVE); CLARITY,URINE CLEAR; COLOR,URINE YELLOW; GLUCOSE, URINE (UA) NEGATIVE (NEGATIVE); KETONES,URINE NEGATIVE (NEGATIVE); LEUKOCYTE ESTERASE ,URINE NEGATIVE (NEGATIVE); NITRITE,URINE NEGATIVE (NEGATIVE); PROTEIN,URINE NEGATIVE (NEGATIVE)
[2021-10-31 22:21] LABS: BACTERIA,URINE NEGATIVE /HPF
--- NOTE | 2021-11-01 08:16 | Physician Query-Final Dx ---
Clinic Account Progress/Dx Physician Query: Please give diagnosis Please include # weeks gestation Date of Service Oct 31, 2021 at 21:18 ADAM,AprNov 01, 2021 08:15
== END 2021-10-31 22:35 ==
LOC: LDRP 21:18 → WSo 21:18
PROVIDERS: ATTEND Family Medicine
DX: O36.8130 Decreased fetal movements, third trimester, not applicable or unspecified (principal); Z3A.37 37 weeks gestation of pregnancy
CPT/HCPCS: 81000; G0463; 99212

== ENCOUNTER 2021-11-06 00:15 | Inpatient (IN) | payer MEDICAID ==
[~2021-11-06] VITALS: Ht 157.5 cm; Wt 64.9 kg
[2021-11-06] VITALS (25 sets, daily range): BP systolic 99–127; BP diastolic 59–83
[2021-11-06 00:52] LABS: BILIRUBIN,URINE NEGATIVE (NEGATIVE); CLARITY,URINE CLEAR; COLOR,URINE YELLOW; GLUCOSE, URINE (UA) NEGATIVE (NEGATIVE); KETONES,URINE NEGATIVE (NEGATIVE); LEUKOCYTE ESTERASE ,URINE NEGATIVE (NEGATIVE); NITRITE,URINE NEGATIVE (NEGATIVE); PH,URINE 7.5 (5-9); PROTEIN,URINE NEGATIVE (NEGATIVE)
[2021-11-06 00:58] LABS: AMORPHOUS SEDIMENT,UR MOD AMOR PHOSPHATE /LPF; BACTERIA,URINE FEW /HPF
[2021-11-06] MEDS ORDERED: D5 LR IV SOLUTION 1,000 ML IV SCH (03:00)
[2021-11-06] MEDS ORDERED: MINERAL OIL 30 ML TOP PRN (03:00)
[2021-11-06] MEDS ORDERED: D5 LR IV SOLUTION 1,000 ML IV ONE (03:17)
[2021-11-06 03:21] LABS: BASOPHILS % (AUTO) 1 % (0-10); EOSINOPHILS # (AUTO) 0.1 10^3/uL (0.0-0.3); EOSINOPHILS % (AUTO) 1 % (0-10); HEMATOCRIT 27 % (35-52); HEMOGLOBIN 8.1 g/dL (11.5-16.0); LYMPHOCYTES # (AUTO) 2.2 10^3/uL (1.0-4.0); LYMPHOCYTES % (AUTO) 26 % (12-44); MEAN CORPUSCULAR HEMOGLOBIN 25 pg (25-34); MEAN CORPUSCULAR HGB CONC 31 g/dL (32-36); MEAN CORPUSCULAR VOLUME 82 fL (80-99); MEAN PLATELET VOLUME 11.5 fL (9.0-12.2); MONOCYTES % (AUTO) 12 % (0-12); NEUTROPHILS # (AUTO) 5.1 10^3/uL (1.8-7.8); NEUTROPHILS % (AUTO) 61 % (42-75); PLATELET COUNT 182 10^3/uL (130-400); WHITE BLOOD COUNT 8.4 10^3/uL (4.3-11.0)
--- NOTE | 2021-11-06 05:14 | History & Physical-OB ---
OB - Chief Complaint & HPI Date/Time Date of Admission: Date of Admission: Nov 06, 2021 at 02:22 Date seen by a Provider: Nov 06, 2021 Time Seen by a Provider: 05:00 Chief Complaint/History OB-Reason for Admission/Chief: Onset of Labor Hx : 3 Hx Para: 2 Expected Date of Delivery: Nov 23, 2021 Gestational Age in Weeks: 37 Gestational Age in Days: 4 Admission Nurse Assessment Rev: Yes History of Labs GBS negative Allergies and Home Medications Allergies Coded Allergies: sucralfate (Unverified Allergy, Unknown, 11/06/21) Patient Home Medication List Home Medication List Reviewed: Yes Ondansetron (Ondansetron Odt) 4 Mg Tab.rapdis, 4 MG PO, (Reported) Entered as Reported by: TY HEREDIA on 07/17/21211 Last Action: Last Taken Edited Vit W-Ca,Fe,FA(<1 mg) ( Vitamins) 1 Each Tablet, 1 EACH PO DAILY, (Reported) Entered as Reported by: AME FERGUSON on 10/06/19 1603 Last Action: Last Taken Edited Discontinued Medications Amoxicillin (Amoxicillin) 500 Mg Capsule, 500 MG PO BID Discontinued Reason: No Longer Taking Prescribed by: DENIS BAIN on 10/22/212232 Last Action: Discontinued OB - History Hx of Present Care: Yes Ultrasounds: Normal mid trimester US Obstetrical Complications: None Medical Complications: None Obstetrical History Hx : 3 Hx Para: 2 Hx Total # of Abortions (Spona: 0 Delivery History Hx Blood Disorders: No Adverse Rxn to Tranfusion: No Patient Past Medical History no chronic medical problems Social History/Family History Alcohol Use: Denies Use Recreational Drug Use: No 2nd Hand Smoke Exposure: No Immunizations Hepatitis A: Yes Hepatitis B: Yes Tetanus Booster (TDap): Less than 5yrs OB - Admission Exam Physical Exam Vitals: Vital Signs 11/06/21 11/06/21 11/06/21 01:13 03:18 04:06 Temp 36.3 Pulse 101 Resp 18 B/P (MAP) 110/69 (83) Pulse Ox 100 O2 Delivery Room Air HEENT: Moist Membranes Heart: Rhythm Normal Lungs: Clear Abdomen: Gravid Cervical Dilatation: 3cm Effacement: 75% Station: -3 Membranes: Intact Heart Rate: 150's Accelerations: Accelerations Present Short Term Variability: Present Contractions on Admission: 6-10 Minutes Apart Intensity: Moderate Labs Laboratory Tests Test 11/06/21 00:35 11/06/21 01:20 11/06/21 03:11 Range/Units Urine Color YELLOW Urine Clarity CLEAR Urine pH 7.5 5-9 Urine Specific [place] 1.010 L 1.016-1.022 Urine Protein NEGATIVE NEGATIVE Urine Glucose (UA) NEGATIVE NEGATIVE Urine Ketones NEGATIVE NEGATIVE Urine Nitrite NEGATIVE NEGATIVE Urine Bilirubin NEGATIVE NEGATIVE Urine Urobilinogen 2.0 < = 1.0 MG/DL Urine Leukocyte Esterase NEGATIVE NEGATIVE Urine RBC (Auto) NEGATIVE NEGATIVE Urine RBC NONE /HPF Urine WBC NONE /HPF Urine Squamous Epithelial Cells 2-5 /HPF Urine Crystals PRESENT H /LPF Urine Amorphous Sediment MOD [place] PHOSPHATE H /LPF Urine Bacteria FEW H /HPF Urine Casts NONE /LPF Urine Mucus NEGATIVE /LPF Urine Culture Indicated NO Influenza Type A (RT-PCR) Not Detected Not Detecte Influenza Type B (RT-PCR) Not Detected Not Detecte SARS-CoV-2 RNA (RT-PCR) Not Detected Not Detecte White Blood Count 8.4 4.3-11.0 10^3/uL Red Blood Count 3.25 L 3.80-5.11 10^6/uL Hemoglobin 8.1 L 11.5-16.0 g/dL Hematocrit 27 L 35-52 % Mean Corpuscular Volume 82 80-99 fL Mean Corpuscular Hemoglobin 25 25-34 pg Mean Corpuscular Hemoglobin Concent 31 L 32-36 g/dL Red Cell Distribution Width 16.7 H 10.0-14.5 % Platelet Count 182 130-400 10^3/uL Mean Platelet Volume 11.5 9.0-12.2 fL Immature Granulocyte % (Auto) 1 % Neutrophils (%) (Auto) 61 42-75 % Lymphocytes (%) (Auto) 26 12-44 % Monocytes (%) (Auto) 12 0-12 % Eosinophils (%) (Auto) 1 0-10 % Basophils (%) (Auto) 1 0-10 % Neutrophils # (Auto) 5.1 1.8-7.8 10^3/uL Lymphocytes # (Auto) 2.2 1.0-4.0 10^3/uL Monocytes # (Auto) 1.0 0.0-1.0 10^3/uL Eosinophils # (Auto) 0.1 0.0-0.3 10^3/uL Basophils # (Auto) 0.0 0.0-0.1 10^3/uL Immature Granulocyte # (Auto) 0.1 0.0-0.1 10^3/uL OB - Assessment/Plan/Diagnosis Assessment Assessment: active labor Admission Dx 1. IUP at 37w4d Admission Status: Inpatient Order (span 2 midnights) Reason for Inpatient Admission: L&D Plan Plan: Expectant Management Induction Method: AROM Other Plan -she doesn't desire epidural KATE WALTER MD Nov 06, 2021 05:14
[2021-11-06] MEDS ORDERED: CATHETER FLUSH 10 ML SYR IV SCH ×2 (06:00→14:00)
[2021-11-06] MEDS ORDERED: BUTORPHANOL INJ 2 MG/ML (STADOL) VIAL ONE (06:10)
[2021-11-06] MEDS ORDERED: BUTORPHANOL INJ 2 MG/ML (STADOL) VIAL IV ONE (06:15)
[2021-11-06] MEDS ORDERED: OXYTOCIN PRE-MIX DRIP 500 ML IV SCH ×2 (07:30→08:30)
[2021-11-06] MEDS ORDERED: MEPIVACAINE (CARBOCAINE) 2% 50 ML VIAL ONE (07:44)
--- NOTE | 2021-11-06 08:18 | OB Labor & Delivery Record ---
L&D History Date of Service Date of Service: Nov 06, 2021 History Expected Date of Delivery: Nov 23, 2021 Gestational Age in Weeks: 37 Hx : 3 Hx Para: 3 Complications Events: Routine care Operative Indications (Cesarea: N/A-Vaginal Delivery Intrapartal Events: None L&D Stage1 Stage One Onset of Labor - Date: Nov 06, 2021 Onset of Labor - Time: 04:58 Monitors and Tracing Monitor Mode: Internal Heart Rate: 125 Monitor Accelerations: Uniform Monitor Decelerations: None Station: -2 Safety Deposit Boxes Custodian Variability: Average (6-10) Short Term Variability: Present Presentation: Vertex Vital Signs VS - Last 72 Hours, by Label 11/06/21 11/06/21 11/06/21 11/06/21 00:40 01:00 01:13 01:30 Temp 36.6 36.6 Pulse 118 96 118 96 Resp 18 18 B/P (MAP) 127/79 (95) 117/75 (89) Pulse Ox 100 100 O2 Delivery Room Air Room Air 11/06/21 11/06/21 11/06/21 11/06/21 01:44 01:59 02:13 02:28 Pulse 98 107 90 101 B/P (MAP) 120/72 (88) 108/65 (79) 114/75 (88) 114/77 (89) 11/06/21 11/06/21 11/06/21 11/06/21 02:43 03:18 04:06 05:07 Temp 36.3 Pulse 103 92 101 100 Resp 18 B/P (MAP) 124/79 (94) 111/74 (86) 110/69 (83) 120/78 (92) O2 Delivery Room Air 11/06/21 11/06/21 11/06/21 11/06/21 05:24 06:06 06:30 07:06 Temp 36.4 36.4 Pulse 103 94 Resp 20 16 B/P (MAP) 124/83 (97) 107/66 (80) O2 Delivery Room Air Room Air Signs of Distress by FHT Signs of Distress no Rupture of Membranes Amniotic Membrane Rupture Time: 0458 Amniotic Membrane Fluid Desc.: Clear Vaginal Bleeding Description: None Induction/Anesthesia Medications stadol x 1 dose L&D Stage2 Stage Two Stage II Date: Nov 06, 2021 Stage II Time: 08:01 Monitors and Tracing Monitor Mode: Internal Heart Rate: 125 Monitor Accelerations: Uniform Monitor Decelerations: None Safety Deposit Boxes Custodian Variability: Average (6-10) Short Term Variability: Present Position: Right Occiput Anterior Presentation: Vertex Signs of Distress by FHT Signs of Distress no Cord Descript/Complications Cord Vessel Description: 3 Vessels Delivery Type Delivery Method: Spontaneous Vaginal Anterior Shoulder: Right Episiotomy/Perineal Laceration Laceraction(s)/Extensions: No Condition of Delivery 1 minute Comment: 9 5 minute Comment: 9 Condition of Condition of Infant: Living Exam: No Observed Abnormalities Resuscitation Resuscitation: N/A - Spontaneous Resp L&D Stage3 Stage Three Stage III Date: Nov 06, 2021 Stage III Time: 08:06 Placenta Delivery Placenta Delivery: Spontaneous Delivery Summary Summary Estimated blood loss (mL): 250 Condition of Delivery Post Hemorrhage: Yes Intervention Required none KATE WALTER MD Nov 06, 2021 08:18
[2021-11-06] MEDS ORDERED: WITCH HAZEL(TUCKS) 40 EA JAR TOP PRN (08:30)
[2021-11-06] MEDS ORDERED: MEASLES,MUMPS,RUBELLA 1 EA INJ SQ ONE (08:30)
[2021-11-06] MEDS ORDERED: BENZOCAINE/MENTHOL (DERMOPLAST) 56 ML CAN TP PRN (08:30)
[2021-11-06] MEDS ORDERED: TETANUS,DIPTH,PERTUSS P/F (BOOSTRIX) 0.5 ML VIAL IM ONE (08:30)
[2021-11-06] MEDS ORDERED: NALOXONE 0.4 MG/ML 1 ML (NARCAN) VIAL IV PRN (08:30)
[2021-11-06] MEDS: ACETAMINOPHEN 500 MG TAB (TYLENOL) PO SCH ×3 (08:36→20:36)
[2021-11-06] MEDS: IBUPROFEN 600 MG (MOTRIN) TAB PO SCH ×3 (08:36→20:36)
[2021-11-06] MEDS: DOCUSATE SODIUM 100 MG (COLACE) CAP PO SCH ×2 (09:00→20:36)
[2021-11-07] VITALS: BP 101/64
[2021-11-07] MEDS: IBUPROFEN 600 MG (MOTRIN) TAB PO SCH ×3 (02:40→15:23)
[2021-11-07] MEDS: ACETAMINOPHEN 500 MG TAB (TYLENOL) PO SCH ×3 (02:41→15:23)
[2021-11-07 04:00] VITALS: BP 114/72
[2021-11-07 06:18] LABS: BASOPHILS % (AUTO) 1 % (0-10); EOSINOPHILS # (AUTO) 0.1 10^3/uL (0.0-0.3); EOSINOPHILS % (AUTO) 1 % (0-10); HEMATOCRIT 23 % (35-52); LYMPHOCYTES # (AUTO) 2.5 10^3/uL (1.0-4.0); LYMPHOCYTES % (AUTO) 33 % (12-44); MEAN CORPUSCULAR HEMOGLOBIN 25 pg (25-34); MEAN CORPUSCULAR HGB CONC 31 g/dL (32-36); MEAN CORPUSCULAR VOLUME 83 fL (80-99); MEAN PLATELET VOLUME 12.1 fL (9.0-12.2); MONOCYTES # (AUTO) 0.7 10^3/uL (0.0-1.0); MONOCYTES % (AUTO) 10 % (0-12); NEUTROPHILS # (AUTO) 4.1 10^3/uL (1.8-7.8); NEUTROPHILS % (AUTO) 55 % (42-75); PLATELET COUNT 176 10^3/uL (130-400); WHITE BLOOD COUNT 7.4 10^3/uL (4.3-11.0)
[2021-11-07 06:21] LABS: HEMOGLOBIN 6.9 g/dL (11.5-16.0)
[2021-11-07] MEDS ORDERED: IRON SUCROSE 200 MG/10 ML (VENOFER) VIAL IV NR (07:15)
[2021-11-07 09:28] VITALS: BP 106/65
[2021-11-07] MEDS: DOCUSATE SODIUM 100 MG (COLACE) CAP PO SCH (09:29)
--- NOTE | 2021-11-07 11:45 | Discharge Summary ---
Diagnosis/Chief Complaint Date of Admission Nov 06, 2021 at 02:22 Date of Discharge 11/07/21 Admission Diagnosis Admission Diagnosis Third Trimester 37 week gestation Discharge Diagnosis Uncomplicated 37 weeks completed Post anemia Discharge Summary-Simple/Stand Procedures Uncomplicated Discharge Physical Examination Allergies: Coded Allergies: sulfamethoxazole (Verified Allergy, Mild, 11/07/21) trimethoprim (Verified Allergy, Mild, 11/07/21) sucralfate (Unverified Allergy, Unknown, 11/06/21) Vitals & I&Os Vital Sign - Last 12Hours Date Time Temp Pulse Resp B/P (MAP) Pulse Ox O2 Delivery O2 Flow Rate FiO2 11/07/21 09:28 36.6 88 16 106/65 (79) 97 Room Air Intake and Output 11/07/21 00:00 Intake Total 500 ml Balance 500 ml General Appearance: Alert, Oriented X3, Cooperative, No Acute Distress HEENT: Mucous Memb Moist/[place] Respiratory: Clear to Auscultation, Normal Air Movement Cardiovascular: Regular Rate, No Murmurs Abdominal: Normal Bowel Sounds, Soft, No Tenderness, No Masses, Other (fundus firm and at umbilicus) Extremities: No Edema, No Tenderness/Swelling Neuro: Normal Speech Psych/Mental Status: Mental Status NL, Mood NL Hospital Course Was the Problem List Reviewed?: Yes See final discharge diagnosis. Discussion & Recommendations Uncomplicated @ 37.4 wga, term female infant Discharge Condition at discharge stable Instructions to patient/family Please see electronic discharge instructions given to patient. Discharge Medications Reviewed and agree with Discharge Medication list on patient's Discharge Instruction sheet Copy Copies To 1: KATE WALTER MD, HOLLY R MD Nov 07, 2021 11:45
[2021-11-07] MEDS ORDERED: IBUP-844 PO (11:49)
[2021-11-07] MEDS ORDERED: DOCU100C37 PO (11:49)
[2021-11-07] MEDS ORDERED: FERR325T18 PO (11:49)
--- NOTE | 2021-11-07 11:50 | Discharge Summary ---
Discharge Inst-Women's Serv Depart Medications New, Converted or Re-Newed RX: Transmitted to Pharmacy New Medications: Ferrous Sulfate (Ferrous Sulfate) 325 Mg (65 Mg Iron) Tablet 325 MG PO DAILY, #30 TAB Docusate Sodium (Docusate Sodium) 100 Mg Capsule 100 MG PO BID, #30 CAP Ibuprofen (Ibu) 600 Mg Tablet 600 MG PO Q6H, #90 TAB Continued Medications: Vit W-Ca,Fe,FA(<1 mg) ( Vitamins) 1 Each Tablet 1 EACH PO DAILY, TAB Discontinued Medications: Ondansetron (Ondansetron Odt) 4 Mg Tab.rapdis 4 MG PO, TAB Follow Up/Instructions Goal/Follow Up: F.u 6 week with [facility] Activity Activity: Activity as Tolerated Driving Instructions: You May Drive Nothing Inside Vagina: No Douching, No [place], No Tampons Diet Discharge Diet: No Restrictions Symptoms to Report to : Swelling Increased, Bleeding Excessive, Fever Over 101 Degrees F For Any Problems or Questions: Contact Your Physician Copies To 1: KATE WALTER MD, HOLLY R MD Nov 07, 2021 11:50
[2021-11-07 15:22] VITALS: BP 117/73
--- NOTE | 2021-11-08 10:10 | Physician Query Clarification ---
PQ-Further Specificity Admission/Discharge Admission Date: Nov 06, 2021 at 02:22 Discharge Date: Nov 07, 2021 at 16:05 Dr. Aldridge, The medical record reflects the following clinical scenario: History/Risk Factors: Delivery Clinical Findings: Hgb 6.9 , EBL 250 ml Treatment: IV Venofer, 325 mg Ferrous sulfate Question: Can you further specify anemia per the clinical indicators above? Please document a response in the Progress Notes or Discharge Summary. 1. anemia d/t acute blood loss 2. anemia not further specified 3. Other, with explanation of the clinical findings. 4. Clinically undetermined, no explanation for the clinical findings. PHYSICIAN RESPONSE Can you specify per above: 1 In responding to this query, please exercise your independent professional judgment. The purpose of this communication is to more accurately reflect the complexity of your patients condition. The fact that a question is asked does not imply that any particular answer is desired or expected. Thank you for your timely response to this clarification. Requestors name: Ottoniel THIS PHYSICIAN QUERY FORM IS A PERMANENT PART OF THE MEDICAL RECORD OTTONIEL BELTRE Nov 08, 2021 10:10 MICA ALDRIDGE MD Nov 10, 2021 22:48
== END 2021-11-07 16:05 | disposition home or self-care (01) | DRG 806 ==
LOC: WSo 00:15 → LDRP 00:17 → WSo 02:22 → LDRP 02:51
PROVIDERS: ADMIT Family Medicine; ATTEND Family Medicine
PROC: 10E0XZZ Delivery of Products of Conception, External Approach (ICD-10-PCS; principal; 2021-11-06)
DX: O72.1 Other immediate postpartum hemorrhage (principal); D62 Acute posthemorrhagic anemia; Z37.0 Single live birth; O90.81 Anemia of the puerperium; Z88.8 Allergy status to other drugs, medicaments and biological substances; Z20.822 Contact with and (suspected) exposure to COVID-19; Z3A.37 37 weeks gestation of pregnancy
CPT/HCPCS: 36415; 81000; 83033; 85025; 86850; 86900; 86901; 87636; 99212